=== PATIENT | male | born 1970 | race American Indian/Alaskan Native ===

== ENCOUNTER 2016-08-16 02:36 | Observation (INO) | payer MEDICAID ==
[2016-08-16 02:36] VITALS: BMI 23.6
--- NOTE | 2016-08-16 05:10 | ED PDOC ---
Arrival/HPI - General Historian: Patient - History of Present Illness Time/Duration: 4-6 hours Symptom Onset: Sudden Symptom Course: Intermittent Quality: Stabbing Severity Level: 9 Activities at Onset: Rest <Adela Kinney - Last Filed: 08/16/16 19:15> <Raciel Jarquin - Last Filed: 08/18/16 23:22> - General Chief Complaint: Abdominal Pain Time Seen by Provider: 08/16/16 03:04 - History of Present Illness Narrative History of Present Illness (Text): 08/16/16 05:10 46 yo M with extensive h/o alcoholism and chronic pancreatitis presents to ER with c/o epigastric abdominal pain and emesis since last evening. Patient states he was resting watching TV when he suddenly developed epigastric abdominal pain radiating to his back. He then developed non-bloody, non-bilious emesis with food ingestion. Patient denies diarrhea, fevers, chills, pleurisy. He was recently admitted at [facility] with diagnosis of RLE DVT, however patient signed out AMA prior to investigatory studies for PE. He states he was subsequently admitted at [facility] where he had a antonino filter placed and was discharged with an anticoagulant of which he does not know the name ("brown pill "). (Adela Kinney) Past Medical History - Provider Review Nursing Documentation Reviewed: Yes - Travel History Have you recently traveled outside [place] w/in the past 3 mons?: No - Infectious Disease Hx of Infectious Diseases: None - Tetanus Immunization Tetanus Immunization: Up to Date - Reproductive Currently : No - Cardiac Hx Cardiac Disorders: Yes Hx Hypertension: Yes - Pulmonary Hx Respiratory Disorders: Yes - Neurological Hx Neurological Disorder: Yes (neuropathy, numbness to toes) - HEENT Hx HEENT Disorder: No - Renal Hx Renal Disorder: No - Endocrine/Metabolic Hx Diabetes Mellitus Type 2: Yes - Hematological/Oncological Hx Blood Disorders: Yes Hx Anemia: Yes - Integumentary Hx Dermatological Disorder: Yes - Musculoskeletal/Rheumatological Hx Falls: Yes - Gastrointestinal Hx Gastrointestinal Disorders: Yes Hx Gastroesophageal Reflux: Yes Hx Pancreatitis: Yes (chronic) - Genitourinary/Gynecological Hx Genitourinary Disorders: No - Psychiatric Hx Substance Use: Yes - Past Surgical History Past Surgical History: Non-Contributing - Surgical History Other/Comment: UMBILICAL hernia 9 yrs old - Anesthesia Hx Anesthesia: Yes Hx Anesthesia Reactions: No Hx Malignant Hyperthermia: No - Suicidal Assessment Feels Threatened In Home Enviroment: No <Adela Kinney - Last Filed: 08/16/16 19:15> Family/Social History - Physician Review Nursing Documentation Reviewed: Yes Family/Social History: Diabetes, Hypertension Smoking Status: Current Some Days Smoker Hx Alcohol Use: Yes (quit 2009) Hx Substance Use: Yes Substance used: heroine Hx Substance Use Treatment: No <Jose AmitziAdela churchill - Last Filed: 08/16/16 19:15> Allergies/Home Meds <NirmalAdela - Last Filed: 08/16/16 19:15> <Raciel Jarquin - Last Filed: 08/18/16 23:22> Allergies/Adverse Reactions: Allergies contrast dye Allergy (Mild, Uncoded 08/16/16 05:01) URTICARIA hives Home Medications: Home Meds Medication Instructions Recorded Confirmed Enalapril Maleate [Vasotec] 10 mg PO DAILY 05/06/16 08/16/16 Fluticasone/Salmeterol 250/50 1 puff IH BID 05/06/16 08/16/16 [Advair Diskus 250/50] Gabapentin [Neurontin] 300 mg PO TID 05/06/16 08/16/16 Simvastatin [Zocor] 20 mg PO DAILY 05/06/16 08/16/16 Review of Systems - Physician Review All systems were reviewed & negative as marked: Yes - Review of Systems Constitutional: Normal. absent: Fatigue, Fevers, Night Sweats Eyes: Normal. absent: Vision Changes, Photophobia ENT: Normal Respiratory: Normal. absent: SOB, Cough, Sputum Cardiovascular: Normal Gastrointestinal: Abdominal Pain (epigastric raditianig to back), Nausea, Vomiting. absent: Diarrhea, Hematochezia, Hematemesis Genitourinary Male: Normal. absent: Dysuria, Frequency Musculoskeletal: Back Pain. absent: Neck Pain Neurological: absent: Headache, Dizziness Endocrine: absent: Diaphoresis, Polyuria, Polydipsia <Adela Kinney - Last Filed: 08/16/16 19:15> Physical Exam Vital Signs Reviewed: Yes Temperature: Afebrile Blood Pressure: Normal Pulse: Regular Respiratory Rate: Normal Appearance: Positive for: Well-Appearing, Non-Toxic, Comfortable Pain Distress: None Mental Status: Positive for: Alert and Oriented X 3 - Systems Exam Head: Present: Atraumatic, Normocephalic Pupils: Present: PERRL Extroacular Muscles: Present: EOMI Conjunctiva: Present: Normal. No: Injected, Icteric Neck: Present: Normal Range of Motion. No: Meningeal Signs, JVD Respiratory/Chest: Present: Good Air Exchange, Wheezes (very mild, end-exp diffuse). No: Respiratory Distress, Accessory Muscle Use Cardiovascular: Present: Regular Rate and Rhythm, Normal S1, S2 Abdomen: Present: Tenderness (mild epigastric), Normal Bowel Sounds, Guarding ( voluntary). No: Distention, Peritoneal Signs Upper Extremity: Present: Normal Inspection. No: Cyanosis, Edema Lower Extremity: Present: Edema (R>L, 4+ pitting edema RLE, 2+ pitting edema LLE ), Reginald's Sign (RLE). No: Normal Inspection, CALF TENDERNESS (RLE) Neurological: Present: GCS=15, CN II-XII Intact, Speech Normal Psychiatric: Present: Alert, Oriented x 3 <Adela Kinney - Last Filed: 08/16/16 19:15> Vital Signs Temp Pulse Resp BP Pulse Ox 08/16/16 10:26 59 L 18 138/79 100 08/16/16 08:54 66 18 141/84 100 08/16/16 07:36 64 124/93 H 100 08/16/16 07:34 65 18 124/93 H 100 08/16/16 07:33 64 16 124/93 H 100 08/16/16 07:00 64 18 115/69 100 08/16/16 05:14 98.1 F 66 18 117/76 100 Medical Decision Making Re-evaluation Time: 06:03 - EKG Interpretation Interpreted by ED Physician: Yes Type: 12 lead EKG Comparison: Similar to previous EKG <Adela Kinney - Last Filed: 08/16/16 19:15> <Raciel Jarquin - Last Filed: 08/18/16 23:22> ED Course and Treatment: 08/16/16 05:34 46 yo M w h/o alcoholism, chronic EtOH-induced pancreatitis, recent RLE DVT s/p antonino filter presents with epigastric abdominal pain, nausea and vomiting. Labs, Zofran, banana bag. Duonebs for mild end-exp wheezing. 08/16/16 06:02 RN unable to obtain IV access. L EJ placed, lab work sent. 08/16/16 06:54 Patient re-evaluated. Initially sleeping but easily arousable. Requests narcotic pain medications. Explained full workup is still pending, no narcotic pain meds will be ordered. 08/16/16 06:59 Patient observed sleeping. (Adela Kinney) 08/16/16 07:00 Patient seen and evaluated with resident. Agree with HPI, clinical findings, plan and treatment. case d/w dr acosta will obs fo intractable vomiting 08/18/16 23:22 (Raciel Jarquin) - Lab Interpretations Lab Results: 08/16/16 05:30 08/16/16 05:30 Lab Results 08/16/16 05:30: WBC 5.0 D, RBC 3.42 L, Hgb 9.0 L, Hct 28.7 L, MCV 83.9, MCH 26.3, MCHC 31.4, RDW 15.2 H, Plt Count 269, MPV 10.8, Gran % 32.6 L, Lymph % ( Auto) 52.2 H, [place] % (Auto) 7.7 H, Eos % (Auto) 6.3 H, Baso % (Auto) 1.2, Gran # 1.62, Lymph # 2.6, [place] # 0.4, Eos # 0.3, Baso # 0.06, PT 11.4, INR 1.06, APTT 30.6, Sodium 138, Potassium 4.2, Chloride 103, Carbon Dioxide 28, Anion Gap 11, BUN 12, Creatinine 0.7, Est GFR ( Amer) > 60, Est GFR (Non-Af Amer) > 60, Random Glucose 376 H* D, Calcium 9.0, Total Bilirubin 0.7, AST 36, ALT 51, Alkaline Phosphatase 91, Total Protein 7.2, Albumin 3.5, Globulin 3.7, Albumin/Globulin Ratio 1.0 L, Lipase 22 L - EKG Interpretation EKG Interpretation (Text): 08/16/16 06:12 NSR, rate 63 bpm, no acute ischemia (Adela Kinney) - Medication Orders Current Medication Orders: Discontinued Medications Albuterol/Ipratropium (Duoneb 3 Mg/0.5 Mg (3 Ml) Ud) 3 ml IH STAT STA Stop: 08/16/16 05:28 Last Admin: 08/16/16 05:37 Dose: 3 ML Docusate Sodium (Colace) 100 mg PO HS CRUZ Last Admin: 08/17/16 23:15 Dose: 100 MG Heparin Sodium (Porcine) (Heparin) 5,000 units SC Q12 CRUZ PRN Reason: Protocol Last Admin: 08/16/16 22:00 Dose: Not Given Non-Admin Reason: Patient Refused Heparin Sodium (Porcine) (Heparin) 5,000 units SC Q8 CRUZ PRN Reason: Protocol Last Admin: 08/18/16 06:09 Dose: 5,000 UNITS Subcutaneous Administrations Document 08/18/16 06:09 KTB (Rec: 08/18/16 06:11 KTB [id number]) Injection Site MAR Injection Site Right Arm Charges for Administration # of Subcutaneous Administrations 1 Hydromorphone HCl (Dilaudid) 0.5 mg IVP Q4H PRN PRN Reason: Pain, severe (8-10) Last Admin: 08/18/16 08:06 Dose: 0.5 MG MAR Pain Assessment Document 08/18/16 08:06 BIR (Rec: 08/18/16 08:06 BIR [id number]) Pain Reassessment Is this a pain reassessment? No Sleep Is patient sleeping during reassessment? No Presence of Pain Presence of Pain Yes IVP Administration Document 08/18/16 08:06 BIR (Rec: 08/18/16 08:06 BIR [id number]) Charges for Administration # of IVP Administrations 1 Hydromorphone HCl (Dilaudid) 1 mg IVP ONCE ONE Stop: 08/17/16 10:57 Last Admin: 08/17/16 11:11 Dose: 1 MG MAR Pain Assessment Document 08/17/16 11:11 RV (Rec: 08/17/16 11:12 RV [id number]) Pain Reassessment Is this a pain reassessment? No Sleep Is patient sleeping during reassessment? No Presence of Pain Presence of Pain Yes Pain Scale Used Pain Scale Used Numeric Location Left, Right or Bilateral Bilateral Pain Location Body Site Abdomen Description Description Constant Intensity of Pain at present 10 Pain Behavior Moaning Irritability Restlessness Perspiration Facial Grimacing Thrashing Aggravating Factors ADL's Alleviating Factors/Management Medication Techniques Alleviating Factors Medication IVP Administration Document 08/17/16 11:11 RV (Rec: 08/17/16 11:12 RV [id number]) Charges for Administration # of IVP Administrations 2 Re-Assess: [facility] Pain Assessment Document 08/17/16 12:11 RV (Rec: 08/17/16 15:58 RV [id number]) Pain Reassessment Is this a pain reassessment? Yes Sleep Is patient sleeping during reassessment? Yes Hydromorphone HCl (Dilaudid) 0.5 mg IVP ONCE ONE Stop: 08/18/16 00:43 Last Admin: 08/18/16 00:53 Dose: 0.[address] [facility] Pain Assessment Document 08/18/16 00:53 KTB (Rec: 08/18/16 00:54 KTB [id number]) Pain Reassessment Is this a pain reassessment? No Presence of Pain Presence of Pain Yes Pain Scale Used Pain Scale Used Numeric Location Pain Location Body Site Abdomen Back Description Intensity of Pain at present 6 IVP Administration Document 08/18/16 00:53 KTB (Rec: 08/18/16 00:54 KTB [id number]) Charges for Administration # of IVP Administrations 1 Re-Assess: [facility] Pain Assessment Document 08/18/16 01:53 KTB (Rec: 08/18/16 02:05 KTB [email or web address]) Pain Reassessment Is this a pain reassessment? Yes Sleep Is patient sleeping during reassessment? Yes Multivitamins/Vitamin C 10 ml/Thiamine HCl 100 mg/ Folic Acid 1 mg/ Dextrose 1, 011.2 mls @ 1,000 mls/hr IV .Q1H1M ONE Stop: 08/16/16 06:06 Last Admin: 08/16/16 07:20 Dose: 1,000 MLS/HR eMAR Start Stop Document 08/16/16 07:20 NATALIA (Rec: 08/16/16 07:21 NATALIA [id number]) Intravenous Solution Start Date 08/16/16 Start Time 06:05 End Date 08/16/16 End time 07:10 Total Infusion Time 65 Sodium Chloride (Sodium Chloride 0.9%) 1,000 mls @ 150 mls/hr IV .Q6H40M [facility] Last Admin: 08/18/16 00:54 Dose: 150 MLS/HR eMAR Start Stop Document 08/18/16 00:54 KTB (Rec: 08/18/16 00:55 KTB [id number]) Intravenous Solution Start Date 08/18/16 Start Time 00:55 Insulin Detemir (Levemir) 15 unit SC HS [facility] Last Admin: 08/17/16 23:17 Dose: 15 UNIT Subcutaneous Administrations Document 08/17/16 23:17 KTB (Rec: 08/17/16 23:17 KTB [id number]) Injection Site MAR Injection Site Right Arm Charges for Administration # of Subcutaneous Administrations 1 Insulin Human Lispro (Humalog Med) 0 units SC ACHS CRUZ PRN Reason: Protocol Last Admin: 08/18/16 11:20 Dose: Not Given Non-Admin Reason: Patient Refused MAR Blood Glucose Document 08/18/16 11:20 BIR (Rec: 08/18/16 11:20 BIR [id number]) Blood Glucose Finger Stick Blood Glucose (70-120) 170 Ketorolac Tromethamine (Toradol) 15 mg IVP Q6 PRN PRN Reason: Pain, moderate (4-7) Last Admin: 08/18/16 06:31 Dose: 15 MG MAR Pain Assessment Document 08/18/16 06:31 KTB (Rec: 08/18/16 06:32 KTB [email or web address]) Pain Reassessment Is this a pain reassessment? No Presence of Pain Presence of Pain Yes Pain Scale Used Pain Scale Used Numeric Location Pain Location Body Site Abdomen Back Description Intensity of Pain at present 6 IVP Administration Document 08/18/16 06:31 KTB (Rec: 08/18/16 06:32 KTB [email or web address]) Charges for Administration # of IVP Administrations 1 Lorazepam (Ativan) 2 mg IVP ONCE ONE PRN Reason: Protocol Stop: 08/16/16 19:42 Last Admin: 08/16/16 19:56 Dose: 2 MG Behavioural Document 08/16/16 19:56 FC (Rec: 08/16/16 19:56 FC [id number]) Maintenance Maintenance Dose No Nonmedicinal Nonmedicinal Interventions Redirect Therapeutic Communication Behavior Behavior for Medication: Anxiety Continuous pacing/restlessness IVP Administration Document 08/16/16 19:56 FC (Rec: 08/16/16 19:56 FC [id number]) Charges for Administration # of IVP Administrations 1 Re-Assess: Reassess Psych Meds Document 08/16/16 20:26 FC (Rec: 08/16/16 20:49 FC [id number]) Reassess Psych Med Effective Morphine Sulfate (Morphine) 1 mg IVP Q4H PRN PRN Reason: Pain, severe (8-10) Last Admin: 08/17/16 09:59 Dose: 1 MG MAR Pain Assessment Document 08/17/16 09:59 RV (Rec: 08/17/16 10:00 RV [id number]) Pain Reassessment Is this a pain reassessment? No Sleep Is patient sleeping during reassessment? No Presence of Pain Presence of Pain Yes Pain Scale Used Pain Scale Used Numeric Location Left, Right or Bilateral Bilateral Pain Location Body Site Abdomen Description Description Constant Intensity of Pain at present 10 Pain Behavior Moaning Crying Irritability Aggravating Factors ADL's Changing Position Exercise/Activity Alleviating Factors/Management Medication Techniques Alleviating Factors Medication IVP Administration Document 08/17/16 09:59 RV (Rec: 08/17/16 10:00 RV [id number]) Charges for Administration # of IVP Administrations 1 Re-Assess: [facility] Pain Assessment Document 08/17/16 10:59 RV (Rec: 08/17/16 15:58 RV [id number]) Pain Reassessment Is this a pain reassessment? Yes Sleep Is patient sleeping during reassessment? No Presence of Pain Presence of Pain Yes Pain Scale Used Pain Scale Used Numeric Location Left, Right or Bilateral Bilateral Pain Location Body Site Abdomen Description Description Constant Intensity of Pain at present 10 Pain Behavior Moaning Irritability Restlessness Perspiration Aggravating Factors ADL's Changing Position Exercise/Activity Alleviating Factors/Management Medication Techniques Pain not relieved and LIP/MD was Yes notified Morphine Sulfate (Morphine) 1 mg IVP ONCE ONE Stop: 08/16/16 15:30 Last Admin: 08/16/16 15:36 Dose: [address] [facility] Pain Assessment Document 08/16/16 15:36 (Rec: 08/16/16 15:36 [id number]) Pain Reassessment Is this a pain reassessment? No Presence of Pain Presence of Pain Yes IVP Administration Document 08/16/16 15:36 (Rec: 08/16/16 15:36 [id number]) Charges for Administration # of IVP Administrations 1 Re-Assess: MAR Pain Assessment Document 08/16/16 16:36 (Rec: 08/16/16 18:20 [email or web address]) Pain Reassessment Is this a pain reassessment? Yes Sleep Is patient sleeping during reassessment? Yes Ondansetron HCl (Zofran Odt) 4 mg PO STAT STA Stop: 08/16/16 05:07 Last Admin: 08/16/16 05:30 Dose: 4 MG Ondansetron HCl (Zofran Inj) 4 mg IVP Q6H PRN PRN Reason: Nausea/Vomiting Last Admin: 08/17/16 08:17 Dose: 4 MG IVP Administration Document 08/17/16 08:17 RV (Rec: 08/17/16 08:17 RV [id number]) Charges for Administration # of IVP Administrations 1 Pantoprazole Sodium (Protonix Inj) 40 mg IVP DAILY [facility] Last Admin: 08/18/16 09:02 Dose: 40 MG IVP Administration Document 08/18/16 09:02 BIR (Rec: 08/18/16 09:02 BIR [id number]) Charges for Administration # of IVP Administrations 1 Pneumococcal Polyvalent Vaccine (Pneumovax 23 Vaccine) 0.5 ml IM .ONCE ONE Stop: 08/16/16 13:50 Polyethylene Glycol (Miralax) 17 gm PO BID [facility] Last Admin: 08/18/16 09:02 Dose: 17 GM Potassium Chloride (K-Dur 20 Meq Er Tab) 20 meq PO ONCE ONE Stop: 08/17/16 10:58 Last Admin: 08/17/16 13:33 Dose: 20 MEQ Comments: patient now agreeing to take Potassium Chloride (Potassium Chloride Oral Soln) 40 meq PO ONCE ONE Stop: 08/18/16 08:35 Last Admin: 08/18/16 09:01 Dose: 40 MEQ Potassium Chloride (K-Dur 20 Meq Er Tab) 40 meq PO ONCE ONE Stop: 08/18/16 08:46 Last Admin: 08/18/16 11:20 Dose: - PA / BIT TAPPER / Resident Statement / has reviewed & agrees with the documentation as recorded. / has examined the patient and agrees with the treatment plan. <Raciel Jarquin - Last Filed: 08/18/16 23:22> Disposition/Present on Arrival - Present on Arrival Any Indicators Present on Arrival: Yes History of DVT/PE: No History of Uncontrolled Diabetes: Yes Urinary Catheter: No History Surgical Site Infection Following: None - Disposition Have Diagnosis and Disposition been Completed?: Yes Disposition Time: 19:00 Patient Plan: Admission <Adela Kinney - Last Filed: 08/16/16 19:15> - Present on Arrival Any Indicators Present on Arrival: No - Disposition Have Diagnosis and Disposition been Completed?: Yes Disposition Time: 07:30 <Raciel Jarquin - Last Filed: 08/18/16 23:22> - Disposition Diagnosis: Intractable vomiting, Hyperglycemia due to type 2 diabetes mellitus Disposition: HOSPITALIZED Patient Problems: Current Active Problems Problem Status Diagnosed Acute gastritis Acute Cellulitis Acute Intractable pain Acute Chronic pancreatitis Chronic Diabetes mellitus type 2 Chronic Condition: SERIOUS
[2016-08-16 05:20] VITALS: O2SAT 100
[2016-08-16] MEDS ORDERED: Albuterol-Ipratrop 3 mg / 0.5 (3 ml) UD IH STA (05:27)
[2016-08-16] MEDS: Multivitamin (MVI) 10 ML, Thiamine 100 MG, Folic Acid 1 MG in Dextrose 5% In Water 1,00... IV ONE ×2 (06:02→07:20)
[2016-08-16 06:24] LABS: BASO # 0.06 K/mm3 (0.0-2.0); BASO % 1.2 % (0.0-3.0); EOS # 0.3 (0.0-0.7); EOS % 6.3 % (1.5-5.0); GRAN # 1.62 (1.4-6.5); GRAN % 32.6 % (50.0-68.0); HEMATOCRIT 28.7 % (42.0-52.0); LYMPH # 2.6 (1.2-3.4); LYMPH % 52.2 % (22.0-35.0); MEAN CELL VOLUME 83.9 fL (80.0-105.0); MEAN CORPUSCULAR HEMOGLOBIN 26.3 pg (25.0-35.0); MEAN CORPUSCULAR HGB CONC 31.4 g/dl (31.0-37.0); MEAN PLATELET VOLUME 10.8 fl (7.0-11.0); MONO # 0.4 (0.1-0.6); MONO % 7.7 % (1.0-6.0); PLATELET COUNT 269 10^3/uL (120.0-450.0); RED CELL DISTRIBUTION WIDTH 15.2 % (11.5-14.5)
[2016-08-16 06:27] LABS: INR 1.06 (0.93-1.08); PARTIAL THROMBOPLASTIN TIME 30.6 Seconds (23.7-30.8)
[2016-08-16 07:00] LABS: ADD MANUAL DIFF? NO
[2016-08-16 07:07] LABS: ALKALINE PHOSPHATASE 91 U/L (38-133); ALT/SGPT 51 U/L (7-56); AST/SGOT 36 U/L (15-59); BILIRUBIN,TOTAL 0.7 mg/dL (0.2-1.3); BLOOD UREA NITROGEN 12 mg/dL (7-21); CARBON DIOXIDE 28 mmol/L (21-33); CHLORIDE 103 mmol/L (95-110); GFR AFRICAN-AMERICAN > 60; LIPASE 22 U/L (23-300); POTASSIUM 4.2 mmol/L (3.6-5.0); SODIUM 138 mmol/L (132-148); TOTAL PROTEIN 7.2 g/dL (5.8-8.3)
[2016-08-16 07:09] LABS: GLUCOSE,RANDOM 376 mg/dL (70-110)
[2016-08-16] MEDS: Sodium Chloride 0.9% 1,000 ML IV SCH ×3 (08:21→22:20)
--- NOTE | 2016-08-16 11:18 | CP.PCM.HP ---
<Christal Perez - Last Filed: 08/16/16 16:42> History of Present Illness - History of Present Illness History of Present Illness: 46 yo M w/ PMHx DM, Pancreatitis, ETOH abuse, IV drug abuse, presents with two episodes of vomiting w/o blood over past two days, and two days of epigastric pain with radiation to the back. Pt has previous admission at same hospital in 06/2016 while being treated for DKA, and RLE DVT, and pt left AMA prior to PE work up. As per pt, subsequently [place] [facility] [place] had a antonino filter placed and was discharged with an anticoagulant of which he does not know the name. PMH: as above PSH:umbilical hernia repair, I&D left arm abscess 05/23/16 Social hx: IVDA, hx alcohol use, former tobacco user Present on Admission - Present on Admission Any Indicators Present on Admission: Yes History of Uncontrolled Diabetes: Yes Review of Systems - Review of Systems All systems: reviewed and no additional remarkable complaints except - Constitutional Constitutional: absent: Chills, Fever - Cardiovascular Cardiovascular: absent: Chest Pain, Dyspnea - Respiratory Respiratory: absent: Dyspnea - Gastrointestinal Gastrointestinal: Abdominal Pain. absent: Diarrhea - Genitourinary Genitourinary: absent: Hematuria, Pyuria Past Patient History - Infectious Disease Hx of Infectious Diseases: None - Tetanus Immunizations Tetanus Immunization: Up to Date - Past Medical History & Family History Past Medical History?: Yes - Past Social History Smoking Status: Current Some Days Smoker - CARDIAC Hx Cardiac Disorders: Yes Hx Hypertension: Yes - PULMONARY Hx Respiratory Disorders: Yes - NEUROLOGICAL Hx Neurological Disorder: Yes (neuropathy, numbness to toes) - HEENT Hx HEENT Problems: No - RENAL Hx Chronic Kidney Disease: No - ENDOCRINE/METABOLIC Hx Diabetes Mellitus Type 2: Yes - HEMATOLOGICAL/ONCOLOGICAL Hx Blood Disorders: Yes Hx Anemia: Yes - INTEGUMENTARY Hx Dermatological Problems: Yes - MUSCULOSKELETAL/RHEUMATOLOGICAL Hx Falls: Yes - GASTROINTESTINAL Hx Gastrointestinal Disorders: Yes Hx Gastroesophageal Reflux: Yes Hx Pancreatitis: Yes (chronic) - GENITOURINARY/GYNECOLOGICAL Hx Genitourinary Disorders: No - PSYCHIATRIC Hx Substance Use: Yes - SURGICAL HISTORY Other/Comment: UMBILICAL hernia 9 yrs old - ANESTHESIA Hx Anesthesia: Yes Hx Anesthesia Reactions: No Hx Malignant Hyperthermia: No Meds Allergies/Adverse Reactions: Allergies Allergy/AdvReac Type Severity Reaction Status Date / Time contrast dye Allergy Mild URTICARIA Uncoded 08/16/16 05:01 Physical Exam - Constitutional Appears: Non-toxic, No Acute Distress - Head Exam Head Exam: ATRAUMATIC, NORMOCEPHALIC - Eye Exam Eye Exam: EOMI, Normal appearance - ENT Exam ENT Exam: Mucous Membranes Moist, Normal Exam - Respiratory Exam Respiratory Exam: Clear to Auscultation Bilateral, NORMAL BREATHING PATTERN - Cardiovascular Exam Cardiovascular Exam: +S1, +S2. absent: Tachycardia - GI/Abdominal Exam GI & Abdominal Exam: Soft, Tenderness (slight in epigastric area) - Extremities Exam Extremities exam: Positive for: pedal edema (+1 b/l). Negative for: tenderness - Neurological Exam Neurological exam: Alert, Oriented x3 - Skin Skin Exam: Intact, Normal Color Results - Vital Signs Recent Vital Signs: Last Vital Signs Temp 98.1 F 08/16/16 05:14 Pulse 59 L 08/16/16 10:26 Resp 18 08/16/16 10:26 BP 138/79 08/16/16 10:26 Pulse Ox 100 08/16/16 10:26 - Labs Result Diagrams: 08/16/16 05:30 08/16/16 05:30 Assessment & Plan - Assessment and Plan (Free Text) Plan: 46 yo M w/ PMHx of DM, Pancreatitis, ETOH abuse, IV drug abuse, presents with two episodes of vomiting w/o blood over past two days, and two days of epigastric pain with radiation to the back. epigastric abdominal pain with vomiting: liq diet IVF 150 toradol 15mg ivp q6prn, moderate pain morphine 1mg ivp q4h prn, severe pain zofran prn DM: Levemir 15 u sc hs MEd Lispro ISS ACHS PPx measures: heparin 5000 u sc q12 protonix <Newton CLARK,Elliot - Last Filed: 08/17/16 08:13> Results - Vital Signs Recent Vital Signs: Last Vital Signs Temp 98.5 F 08/17/16 02:55 Pulse 44 L 08/17/16 06:00 Resp 20 08/17/16 02:55 BP 133/84 08/17/16 02:55 Pulse Ox 100 08/17/16 02:55 - Labs Result Diagrams: 08/16/16 05:30 08/16/16 05:30 Attending/Attestation - Attestation I have personally seen and examined this patient.: Yes I have fully participated in the care of the patient.: Yes I have reviewed all pertinent clinical information: Yes Notes (Text): Patient was seen and examined with manager medical device .Agreed with resident assessment and plan. 46 yrs old male with PMH of chronic Pancreatitis, DM,HTN, chronic pain syndrome , opiod abuse and non compliance with medication.He has history of admission to multiple hospital for pain related issue.Last time in June he was diagnosed with multiple abscess, MSSA Bactremia, right leg Popliteal and tibial DVT ,he left the hospital ,then was admitted in [place] [facility] [place] for 2 weeks as per patient, IVC filter was placed in for DVT due to history of non compliance joseluis dmitted with abdminal pain getting worse, abdominal examination is unremarkable except for mild epigastric tenderness.Patient looks comfortable , will admit in hospital for obervation, will start on liquid diet, will avoid high dose of Narcotic due to history of opiod abuse, will monitor for pain closely and adjust medications as needed. Management plan was discussed in detail with patient Education was provided.
[2016-08-16] MEDS: Morphine 2 mg/ml ISec IVP PRN ×3 (11:48→18:52)
[2016-08-16] MEDS: Insulin Lispro (humaLOG) MEDIUM Coverage SC SCH ×4 (11:48→22:28)
--- NOTE | 2016-08-16 12:02 | CARD ---
APPROVED REPORT EKG Measurement Heart [id number] <Conclusion> Normal sinus rhythm Normal ECG
[2016-08-16] MEDS ORDERED: Pneumococcal 23-Valent Vaccine IM ONE (13:49)
[2016-08-16] MEDS ORDERED: Morphine 2 mg/ml ISec IVP ONE (15:29)
[2016-08-16] MEDS: Insulin Detemir 100 units/ml Vial (Levemir) SC SCH ×2 (22:01→22:30)
[2016-08-17] MEDS: Morphine 2 mg/ml ISec IVP PRN ×3 (01:03→09:59)
[2016-08-17] MEDS: Sodium Chloride 0.9% 1,000 ML IV SCH ×3 (04:21→17:55)
[2016-08-17] MEDS: Insulin Lispro (humaLOG) MEDIUM Coverage SC SCH ×4 (08:17→23:16)
[2016-08-17 09:20] LABS: ADD MANUAL DIFF? NO
[2016-08-17 09:30] LABS: BASO # 0.03 K/mm3 (0.0-2.0); BASO % 0.4 % (0.0-3.0); EOS # 0.2 (0.0-0.7); EOS % 2.2 % (1.5-5.0); GRAN # 3.25 (1.4-6.5); GRAN % 47.1 % (50.0-68.0); HEMATOCRIT 30.8 % (42.0-52.0); LYMPH % 43.8 % (22.0-35.0); MEAN CELL VOLUME 81.3 fL (80.0-105.0); MEAN CORPUSCULAR HEMOGLOBIN 26.6 pg (25.0-35.0); MEAN CORPUSCULAR HGB CONC 32.8 g/dl (31.0-37.0); MEAN PLATELET VOLUME 10.8 fl (7.0-11.0); MONO # 0.5 (0.1-0.6); MONO % 6.5 % (1.0-6.0); PLATELET COUNT 268 10^3/uL (120.0-450.0); RED CELL DISTRIBUTION WIDTH 14.4 % (11.5-14.5); WHITE BLOOD COUNT 6.9 10^3/ul (4.5-11.0)
[2016-08-17 09:32] LABS: ALB/GLOB RATIO 0.9 (1.1-1.8); ALKALINE PHOSPHATASE 71 U/L (38-133); ALT/SGPT 44 U/L (7-56); AST/SGOT 26 U/L (15-59); BLOOD UREA NITROGEN 8 mg/dL (7-21); CALCIUM 8.7 mg/dL (8.4-10.5); CARBON DIOXIDE 24 mmol/L (21-33); CHLORIDE 105 mmol/L (95-110); GFR AFRICAN-AMERICAN > 60; GLUCOSE,RANDOM 155 mg/dL (70-110); SODIUM 137 mmol/L (132-148)
[2016-08-17 09:36] LABS: POTASSIUM 3.4 mmol/L (3.6-5.0)
[2016-08-17] MEDS ORDERED: HYDROmorphone 0.5 mg/0.5 ml ISec IVP ONE (10:56)
[2016-08-17] MEDS: Potassium Chloride 20 mEq ER Tab PO ONE ×3 (11:12→13:33)
--- NOTE | 2016-08-17 15:19 | CT ---
PROCEDURE: CT Abdomen and Pelvis without intravenous contrast HISTORY: abdominal pain COMPARISON: None. TECHNIQUE: Without contrast.. Contrast Dose: Noncontrast Radiation dose: Total exam DLP = 371 mGy-cm. This CT exam was performed using one or more of the following dose reduction techniques: Automated exposure control, adjustment of the mA and/or kV according to patient size, and/or use of iterative reconstruction technique. FINDINGS: LOWER THORAX: Unremarkable. LIVER: Unremarkable. No gross lesion or ductal dilatation. GALLBLADDER AND BILE DUCTS: Unremarkable. PANCREAS: Extensive chronic calcifications are seen in the pancreas. There is dilatation of the pancreatic duct consistent with atrophy. SPLEEN: Unremarkable. ADRENALS: Unremarkable. No mass. KIDNEYS AND URETERS: Unremarkable. No hydronephrosis. No solid mass. VASCULATURE: Unremarkable. No aortic aneurysm. Caval filter BOWEL: Unremarkable. No obstruction. No gross mural thickening. Severe constipation APPENDIX: Unremarkable. Normal appendix. PERITONEUM: Unremarkable. No free fluid. No free air. LYMPH NODES: Unremarkable. No enlarged lymph nodes. BLADDER: Unremarkable. REPRODUCTIVE: Unremarkable. BONES: No acute fracture. OTHER FINDINGS: None. IMPRESSION: Severe constipation. Chronic pancreatitis
--- NOTE | 2016-08-17 15:24 | CP.PCM.PN ---
<ChrisChristal - Last Filed: 08/18/16 06:39> Subjective - Date & Time of Evaluation Date of Evaluation: 08/17/16 Time of Evaluation: 07:25 - Subjective Subjective: Pt seen and evaluated at bedside. Reports 3 non-bloody vomitus overnight. Nursing reports having seen pt placing straw down his throat, presumedly to induce vomit. Afebrile. Reporting unchanged abdominal pain. Objective - Vital Signs/Intake and Output Vital Signs (last 24 hours): Temp Pulse Resp BP Pulse Ox 98.8 F 46 L 20 112/75 100 08/17/16 06:00 08/17/16 06:00 08/17/16 06:00 08/17/16 06:00 08/17/16 06:00 Intake and Output: 08/17/16 08/17/16 06:59 18:59 Intake Total 2940 540 Output Total 100 Balance 2840 540 - Medications Medications: Current Medications Heparin Sodium (Porcine) (Heparin) 5,000 units SC Q8 CRUZ PRN Reason: Protocol Last Admin: 08/17/16 13:33 Dose: 5,000 units Hydromorphone HCl (Dilaudid) 0.5 mg IVP Q4H PRN PRN Reason: Pain, severe (8-10) Sodium Chloride (Sodium Chloride 0.9%) 1,000 mls @ 150 mls/hr IV .Q6H40M [facility] Last Admin: 08/17/16 10:00 Dose: 150 mls/hr Insulin Detemir (Levemir) 15 unit SC HS [facility] Last Admin: 08/16/16 22:30 Dose: 15 unit Insulin Human Lispro (Humalog Med) 0 units SC ACHS [facility] PRN Reason: Protocol Last Admin: 08/17/16 11:37 Dose: Not Given Ketorolac Tromethamine (Toradol) 15 mg IVP Q6 PRN PRN Reason: Pain, moderate (4-7) Last Admin: 08/17/16 13:35 Dose: 15 mg Ondansetron HCl (Zofran Inj) 4 mg IVP Q6H PRN PRN Reason: Nausea/Vomiting Last Admin: 08/17/16 08:17 Dose: 4 mg Pantoprazole Sodium (Protonix Inj) 40 mg IVP DAILY [facility] Last Admin: 08/17/16 10:00 Dose: 40 mg - Labs Labs: 08/17/16 09:18 08/17/16 09:18 PT 11.4 Seconds (9.9-11.8) 08/16/16 05:30 INR 1.06 (0.93-1.08) 08/16/16 05:30 APTT 30.6 Seconds (23.7-30.8) 08/16/16 05:30 - Cardiovascular Exam Cardiovascular Exam: +S2 - Additional Findings Additional findings: - Constitutional Appears: Non-toxic, combative - Head Exam Head Exam: ATRAUMATIC, NORMOCEPHALIC - Eye Exam Eye Exam: EOMI, Normal appearance - ENT Exam ENT Exam: Mucous Membranes Moist, Normal Exam - Respiratory Exam Respiratory Exam: Clear to Auscultation Bilateral, NORMAL BREATHING PATTERN - Cardiovascular Exam Cardiovascular Exam: +S1, +S2. absent: Tachycardia - GI/Abdominal Exam GI & Abdominal Exam: Soft, Tenderness epigastric pain - Extremities Exam Extremities exam: Positive for: peripheral pulses appreciated. Negative for: tenderness - Neurological Exam Neurological exam: Alert, Oriented x3 - Skin Skin Exam: Intact, Normal Color Assessment and Plan - Assessment and Plan (Free Text) Plan: 46 yo M w/ PMHx of DM, Pancreatitis, ETOH abuse, IV drug abuse, presents with two episodes of vomiting w/o blood over past two days, and two days of epigastric pain with radiation to the back. chronic pancreatitis: CT abd shows chronic pancreatitis and constipation full liq diet IVF toradol 15mg ivp q6prn, moderate pain dilaudid 0.5 mg ivp prn, severe pain zofran prn DM: Levemir 15 u sc hs MEd Lispro ISS ACHS constipation: miralax, colace PPx measures: heparin 5000 u sc q12 protonix <Newton CLARK,Elliot - Last Filed: 08/20/16 10:19> Objective - Vital Signs/Intake and Output Vital Signs (last 24 hours): Temp Pulse Resp BP Pulse Ox 98.7 F 49 L 18 136/87 100 08/18/16 06:00 08/18/16 06:00 08/18/16 06:00 08/18/16 06:00 08/18/16 06:00 - Labs Labs: 08/18/16 07:00 08/18/16 07:00 PT 11.4 Seconds (9.9-11.8) 08/16/16 05:30 INR 1.06 (0.93-1.08) 08/16/16 05:30 APTT 30.6 Seconds (23.7-30.8) 08/16/16 05:30 Attending/Attestation - Attestation I have personally seen and examined this patient.: Yes I have fully participated in the care of the patient.: Yes I have reviewed all pertinent clinical information, including history, physical exam and plan: Yes Notes (Text): Patient was seen and examined with electromedical equipment technician .Agreed with resident assessment and plan. 46 yrs old male with PMH of chronic Pancreatitis, DM,HTN, chronic pain syndrome , opiod abuse and non compliance with medication.He has history of admission to multiple hospital for pain related issue.Last time in June he was diagnosed with multiple abscess, MSSA Bactremia, right leg Popliteal and tibial DVT ,he left the hospital ,then was admitted in the [facility] for 2 weeks as per patient, IVC filter was placed in for DVT due to history of noncompliance is admitted with abdminal pain getting worse, abdominal examination is unremarkable except for mild epigastric tenderness,CT scan of abdomen and Pelvis today showed chronic Pancreatitis and constipation, We will start patient on laxative, and advance diet. Management plan was discussed in detail with patient Education was provided.
[2016-08-17] MEDS: HYDROmorphone 0.5 mg/0.5 ml ISec IVP PRN ×3 (15:57→23:54)
--- NOTE | 2016-08-17 17:46 | CARD ---
APPROVED REPORT EKG Measurement Heart [id number] <Conclusion> Marked sinus bradycardia Septal infarct, age undetermined Abnormal ECG
[2016-08-17] MEDS: POLYETHYLENE GLYCOL 3350 17 GM/Dose PACKET PO SCH (17:56)
[2016-08-17] MEDS: Insulin Detemir 100 units/ml Vial (Levemir) SC SCH (23:17)
[2016-08-18] MEDS ORDERED: HYDROmorphone 0.5 mg/0.5 ml ISec IVP ONE (00:42)
[2016-08-18] MEDS: Sodium Chloride 0.9% 1,000 ML IV SCH (00:54)
[2016-08-18 02:36] VITALS: TEMP 98.7
[2016-08-18] MEDS: HYDROmorphone 0.5 mg/0.5 ml ISec IVP PRN ×2 (04:09→08:06)
[2016-08-18 07:49] LABS: ADD MANUAL DIFF? NO
[2016-08-18 07:52] LABS: BASO # 0.03 K/mm3 (0.0-2.0); BASO % 0.5 % (0.0-3.0); EOS # 0.3 (0.0-0.7); EOS % 4.2 % (1.5-5.0); GRAN # 2.57 (1.4-6.5); GRAN % 42.9 % (50.0-68.0); HEMATOCRIT 31.1 % (42.0-52.0); LYMPH # 2.7 (1.2-3.4); LYMPH % 45.7 % (22.0-35.0); MEAN CELL VOLUME 79.9 fL (80.0-105.0); MEAN CORPUSCULAR HGB CONC 32.5 g/dl (31.0-37.0); MEAN PLATELET VOLUME 10.3 fl (7.0-11.0); MONO # 0.4 (0.1-0.6); MONO % 6.7 % (1.0-6.0); PLATELET COUNT 278 10^3/uL (120.0-450.0); RED CELL DISTRIBUTION WIDTH 14.5 % (11.5-14.5)
[2016-08-18] MEDS: Insulin Lispro (humaLOG) MEDIUM Coverage SC SCH ×2 (08:07→11:20)
[2016-08-18 08:23] LABS: ALB/GLOB RATIO 0.8 (1.1-1.8); ALKALINE PHOSPHATASE 65 U/L (38-133); ALT/SGPT 46 U/L (7-56); AST/SGOT 31 U/L (15-59); BILIRUBIN,TOTAL 1.1 mg/dL (0.2-1.3); BLOOD UREA NITROGEN 7 mg/dL (7-21); CALCIUM 8.5 mg/dL (8.4-10.5); CARBON DIOXIDE 23 mmol/L (21-33); CHLORIDE 106 mmol/L (98-107); GFR AFRICAN-AMERICAN > 60; GLUCOSE,RANDOM 69 mg/dL (70-110); POTASSIUM 3.2 mmol/L (3.6-5.0); SODIUM 138 mmol/L (132-148); TOTAL PROTEIN 6.7 g/dL (5.8-8.3)
[2016-08-18] MEDS ORDERED: Potassium Chloride 40 mEq/30 ml LIQ UD PO ONE (08:34)
[2016-08-18] MEDS ORDERED: Potassium Chloride 20 mEq ER Tab PO ONE (08:45)
[2016-08-18] MEDS: POLYETHYLENE GLYCOL 3350 17 GM/Dose PACKET PO SCH (09:02)
[2016-08-18 09:51] VITALS: BP 136/87; PULSE 49; RESP 18
--- NOTE | 2016-08-18 12:53 | CP.PCM.DIS ---
<Christal Perez - Last Filed: 09/21/16 22:41> Provider - Provider Date of Admission: 08/16/16 07:29 Attending physician: Tripp Rivera MD Primary care physician: unknown Consults: none Time Spent in preparation of Discharge (in minutes): 35 Hospital Course - Lab Results Lab Results: Micro Results 08/16/16 10:30 Blood-Venous Blood Culture - Preliminary NO GROWTH AFTER 48 HOURS 08/16/16 09:50 Blood-Venous Blood Culture - Preliminary NO GROWTH AFTER 48 HOURS Most Recent Lab Values WBC 6.0 10^3/ul (4.5-11.0) 08/18/16 07:00 RBC 3.89 10^6/uL (3.5-6.1) 08/18/16 07:00 Hgb 10.1 gm/dL (14.0-18.0) L 08/18/16 07:00 Hct 31.1 % (42.0-52.0) L 08/18/16 07:00 MCV 79.9 fL (80.0-105.0) L 08/18/16 07:00 MCH 26.0 pg (25.0-35.0) 08/18/16 07:00 MCHC 32.5 g/dl (31.0-37.0) 08/18/16 07:00 RDW 14.5 % (11.5-14.5) 08/18/16 07:00 Plt Count 278 10^3/uL (120.0-450.0) 08/18/16 07:00 MPV 10.3 fl (7.0-11.0) 08/18/16 07:00 Gran % 42.9 % (50.0-68.0) L 08/18/16 07:00 Lymph % (Auto) 45.7 % (22.0-35.0) H 08/18/16 07:00 [place] % (Auto) 6.7 % (1.0-6.0) H 08/18/16 07:00 Eos % (Auto) 4.2 % (1.5-5.0) 08/18/16 07:00 Baso % (Auto) 0.5 % (0.0-3.0) 08/18/16 07:00 Gran # 2.57 (1.4-6.5) 08/18/16 07:00 Lymph # 2.7 (1.2-3.4) 08/18/16 07:00 [place] # 0.4 (0.1-0.6) 08/18/16 07:00 Eos # 0.3 (0.0-0.7) 08/18/16 07:00 Baso # 0.03 K/mm3 (0.0-2.0) 08/18/16 07:00 PT 11.4 Seconds (9.9-11.8) 08/16/16 05:30 INR 1.06 (0.93-1.08) 08/16/16 05:30 APTT 30.6 Seconds (23.7-30.8) 08/16/16 05:30 Sodium 138 mmol/L (132-148) 08/18/16 07:00 Potassium 3.2 mmol/L (3.6-5.0) L 08/18/16 07:00 Chloride 106 mmol/L (98-107) 08/18/16 07:00 Carbon Dioxide 23 mmol/L (21-33) 08/18/16 07:00 Anion Gap 12 (10-20) 08/18/16 07:00 BUN 7 mg/dL (7-21) 08/18/16 07:00 Creatinine 0.7 mg/dL (0.5-1.4) 08/18/16 07:00 Est GFR ( Amer) > 60 08/18/16 07:00 Est GFR (Non-Af Amer) > 60 08/18/16 07:00 POC Glucose (mg/dL) 301 mg/dL (65-110) H 08/16/16 10:59 Random Glucose 69 mg/dL (70-110) L 08/18/16 07:00 Calcium 8.5 mg/dL (8.4-10.5) 08/18/16 07:00 Total Bilirubin 1.1 mg/dL (0.2-1.3) 08/18/16 07:00 AST 31 U/L (15-59) 08/18/16 07:00 ALT 46 U/L (7-56) 08/18/16 07:00 Alkaline Phosphatase 65 U/L (38-133) 08/18/16 07:00 Total Protein 6.7 g/dL (5.8-8.3) 08/18/16 07:00 Albumin 3.0 g/dL (3.0-4.8) 08/18/16 07:00 Globulin 3.7 gm/dL 08/18/16 07:00 Albumin/Globulin Ratio 0.8 (1.1-1.8) L 08/18/16 07:00 Lipase 22 U/L (23-300) L 08/16/16 05:30 - Hospital Course Hospital Course: 46 yo M with extensive h/o alcoholism, opioid abuse and chronic pancreatitis presents to ER with c/o epigastric abdominal pain and emesis since last evening. Patient states he was resting watching TV when he suddenly developed epigastric abdominal pain radiating to his back. He then developed non-bloody, non-bilious emesis with food ingestion. Patient denies diarrhea, fevers, chills , pleurisy. He was recently admitted at [facility] with diagnosis of RLE DVT, however patient signed out AMA prior to investigatory studies for PE, then was admitted in the [facility] for 2 weeks as per patient, IVC filter was placed in for DVT due to history of non compliance. Transferred to remote telemetry from ED for Intractable vomiting. Pt started on liquid diet and diet advanced as tolerated. CT scan of abdomen and Pelvis showed chronic Pancreatitis and constipation, for which a laxative was started. Pt has steady gait, and tolerated heart healthy diet w/o n/v. Pt d/c in stable condition with the following instructions: You are discharged home. Please follow-up with your primary doctor of choice within one week of discharge. As per conversation with you, you currently have a full supply of your home medications, so no new rxs are given. Please resume all home medications including your anti-coagulation medication. Please return to the emergency department for worsening of symptoms. Discharge Exam - Additional Findings Additional findings: - Constitutional Appears: Non-toxic, mildly combative - Head Exam Head Exam: ATRAUMATIC, NORMOCEPHALIC - Eye Exam Eye Exam: EOMI, Normal appearance - ENT Exam ENT Exam: Mucous Membranes Moist, Normal Exam - Respiratory Exam Respiratory Exam: Clear to Auscultation Bilateral, NORMAL BREATHING PATTERN - Cardiovascular Exam Cardiovascular Exam: +S1, +S2. absent: Tachycardia - GI/Abdominal Exam GI & Abdominal Exam: Soft, Tenderness epigastric pain - Extremities Exam Extremities exam: Positive for: peripheral pulses appreciated. Negative for: tenderness - Neurological Exam Neurological exam: Alert, Oriented x3 - Skin Skin Exam: Intact, Normal Color Discharge Plan - Follow Up Plan Condition: STABLE Disposition: HOME/ ROUTINE Instructions: Pancreatitis (DC) Additional Instructions: You are discharged home. Please follow-up with your primary doctor of choice within one week of discharge. As per conversation with you, you currently have a full supply of your home medications, so no new rxs are given. Please resume all home medications including your anti-coagulation medication. Please return to the emergency department for worsening of symptoms. <Tripp Rivera - Last Filed: 09/22/16 07:55> Provider - Provider Date of Admission: 08/16/16 07:29 Attending physician: Tripp Rivera MD Hospital Course - Lab Results Lab Results: Micro Results 08/16/16 10:30 Blood-Venous Blood Culture - Final NO GROWTH AFTER 5 DAYS 08/16/16 10:30 Blood-Venous Gram Stain - Final 08/16/16 09:50 Blood-Venous Blood Culture - Final NO GROWTH AFTER 5 DAYS 08/16/16 09:50 Blood-Venous Gram Stain - Final Most Recent Lab Values WBC 6.0 10^3/ul (4.5-11.0) 08/18/16 07:00 RBC 3.89 10^6/uL (3.5-6.1) 08/18/16 07:00 Hgb 10.1 gm/dL (14.0-18.0) L 08/18/16 07:00 Hct 31.1 % (42.0-52.0) L 08/18/16 07:00 MCV 79.9 fL (80.0-105.0) L 08/18/16 07:00 MCH 26.0 pg (25.0-35.0) 08/18/16 07:00 MCHC 32.5 g/dl (31.0-37.0) 08/18/16 07:00 RDW 14.5 % (11.5-14.5) 08/18/16 07:00 Plt Count 278 10^3/uL (120.0-450.0) 08/18/16 07:00 MPV 10.3 fl (7.0-11.0) 08/18/16 07:00 Gran % 42.9 % (50.0-68.0) L 08/18/16 07:00 Lymph % (Auto) 45.7 % (22.0-35.0) H 08/18/16 07:00 [place] % (Auto) 6.7 % (1.0-6.0) H 08/18/16 07:00 Eos % (Auto) 4.2 % (1.5-5.0) 08/18/16 07:00 Baso % (Auto) 0.5 % (0.0-3.0) 08/18/16 07:00 Gran # 2.57 (1.4-6.5) 08/18/16 07:00 Lymph # 2.7 (1.2-3.4) 08/18/16 07:00 [place] # 0.4 (0.1-0.6) 08/18/16 07:00 Eos # 0.3 (0.0-0.7) 08/18/16 07:00 Baso # 0.03 K/mm3 (0.0-2.0) 08/18/16 07:00 PT 11.4 Seconds (9.9-11.8) 08/16/16 05:30 INR 1.06 (0.93-1.08) 08/16/16 05:30 APTT 30.6 Seconds (23.7-30.8) 08/16/16 05:30 Sodium 138 mmol/L (132-148) 08/18/16 07:00 Potassium 3.2 mmol/L (3.6-5.0) L 08/18/16 07:00 Chloride 106 mmol/L (98-107) 08/18/16 07:00 Carbon Dioxide 23 mmol/L (21-33) 08/18/16 07:00 Anion Gap 12 (10-20) 08/18/16 07:00 BUN 7 mg/dL (7-21) 08/18/16 07:00 Creatinine 0.7 mg/dL (0.5-1.4) 08/18/16 07:00 Est GFR ( Amer) > 60 08/18/16 07:00 Est GFR (Non-Af Amer) > 60 08/18/16 07:00 POC Glucose (mg/dL) 170 mg/dL (65-110) H 08/18/16 11:18 Random Glucose 69 mg/dL (70-110) L 08/18/16 07:00 Calcium 8.5 mg/dL (8.4-10.5) 08/18/16 07:00 Total Bilirubin 1.1 mg/dL (0.2-1.3) 08/18/16 07:00 AST 31 U/L (15-59) 08/18/16 07:00 ALT 46 U/L (7-56) 08/18/16 07:00 Alkaline Phosphatase 65 U/L (38-133) 08/18/16 07:00 Total Protein 6.7 g/dL (5.8-8.3) 08/18/16 07:00 Albumin 3.0 g/dL (3.0-4.8) 08/18/16 07:00 Globulin 3.7 gm/dL 08/18/16 07:00 Albumin/Globulin Ratio 0.8 (1.1-1.8) L 08/18/16 07:00 Lipase 22 U/L (23-300) L 08/16/16 05:30 Attending/Attestation - Attestation I have personally seen and examined this patient.: Yes I have fully participated in the care of the patient.: Yes I have reviewed all pertinent clinical information, including history, physical exam and plan: Yes Notes (Text): 09/22/16 07:51 46 year old male with past medical history of chronic pancreatitis, chronic abdominal pain, opioid abuse and opioid dependency who presented with abdominal pain. CT abd/pelvis showed chronic pancreatitis and constipation. He was started on fluids and antiemetics. He was on laxatives. His symptoms improved and his diet was advanced. He is discharged home to follow up with his pmd. Counselled on risks of continued narcotic abuse. Tripp Rivera MD Hospitalist.
== END 2016-08-18 13:35 | disposition home or self-care (01) ==
LOC: ED 02:36 → ERH 07:29 → 3RNO 11:37
PROVIDERS: ADMIT Hospitalist; ATTEND Internal Medicine
DX: K29.00 Acute gastritis without bleeding (principal); K86.1 Other chronic pancreatitis; E11.65 Type 2 diabetes mellitus with hyperglycemia; K21.9 Gastro-esophageal reflux disease without esophagitis; I10 Essential (primary) hypertension; L03.90 Cellulitis, unspecified; Z79.899 Other long term (current) drug therapy; Z86.718 Personal history of other venous thrombosis and embolism; G62.9 Polyneuropathy, unspecified; D64.9 Anemia, unspecified; F17.210 Nicotine dependence, cigarettes, uncomplicated; Z91.041 Radiographic dye allergy status; F10.10 Alcohol abuse, uncomplicated; F19.10 Other psychoactive substance abuse, uncomplicated; Z86.19 Personal history of other infectious and parasitic diseases; Z91.14 Patient's other noncompliance with medication regimen; G89.4 Chronic pain syndrome; K59.00 Constipation, unspecified
CPT/HCPCS: 36415; 74176; 80053; 82948; 83690; 85025; 85610; 85730; 87040; 93005; 96360; 96374; 99285; C9113; G0378; J1170; J1644; J1885; J2060; J2270; J2405; J3411; J3480; J7040; J7070

== ENCOUNTER 2016-10-06 21:02 | Inpatient (IN) | payer MEDICAID, OTHER ==
[2016-10-06] MEDS ORDERED: Sodium Chloride 0.9% 1,000 ML IV STA ×3 (21:16→23:23)
--- NOTE | 2016-10-06 21:35 | ED PDOC ---
Arrival/HPI - General Chief Complaint: Medical Clearance Time Seen by Provider: 10/06/16 21:06 Historian: Patient - History of Present Illness Narrative History of Present Illness (Text): 10/06/16 21:29 Efra Olivares is a 46 year old male, whose past medical history includes pancreatitis, diabetes, hypertension, ETOH abuse (quit in 2009), and LE DVT in Jun 2016, presents to the emergency department complaining of back pain and abdominal pain associated with nausea and vomiting since yesterday. Today he states that he is unable to walk long distances due to leg cramps and spasms. Patient states that he is on Novolog, Lantus and metformin for diabetes, but has not taken them for past week because he ran out. Patient states he has not taken blood thinners as well for that reason. Denies any fever, headache, dizziness, chest pain, shortness of breath, urinary symptoms, or any other complaints at this time. Time/Duration: Other (since yesterday ) Symptom Onset: Gradual Severity Level: Mild Activities at Onset: Light Past Medical History - Provider Review Nursing Documentation Reviewed: Yes - Infectious Disease Hx of Infectious Diseases: None - Tetanus Immunization Tetanus Immunization: Up to Date - Reproductive Currently : No - Cardiac Hx Cardiac Disorders: Yes Hx Hypertension: Yes - Pulmonary Hx Respiratory Disorders: Yes - Neurological Hx Neurological Disorder: Yes (neuropathy, numbness to toes) - HEENT Hx HEENT Disorder: No - Renal Hx Renal Disorder: No - Endocrine/Metabolic Hx Diabetes Mellitus Type 2: Yes - Hematological/Oncological Hx Blood Disorders: Yes Hx Anemia: Yes - Integumentary Hx Dermatological Disorder: Yes - Musculoskeletal/Rheumatological Hx Falls: Yes - Gastrointestinal Hx Gastrointestinal Disorders: Yes Hx Gastroesophageal Reflux: Yes Hx Pancreatitis: Yes (chronic) - Genitourinary/Gynecological Hx Genitourinary Disorders: No - Psychiatric Hx Psychophysiologic Disorder: No Hx Substance Use: Yes - Past Surgical History Past Surgical History: Non-Contributing - Surgical History Other/Comment: UMBILICAL hernia 9 yrs old - Anesthesia Hx Anesthesia: Yes Hx Anesthesia Reactions: No Hx Malignant Hyperthermia: No - Suicidal Assessment Feels Threatened In Home Enviroment: No Family/Social History - Physician Review Nursing Documentation Reviewed: Yes Family/Social History: No Known Family HX Smoking Status: Current Some Days Smoker Hx Alcohol Use: Yes (quit 2009) Hx Substance Use: Yes Substance used: heroine Hx Substance Use Treatment: No Allergies/Home Meds Allergies/Adverse Reactions: Allergies contrast dye Allergy (Mild, Uncoded 08/16/16 05:01) URTICARIA hives Home Medications: Home Meds Medication Instructions Recorded Confirmed Enalapril Maleate [Vasotec] 10 mg PO DAILY 05/06/16 08/16/16 Fluticasone/Salmeterol 250/50 1 puff IH BID 05/06/16 08/16/16 [Advair Diskus 250/50] Gabapentin [Neurontin] 300 mg PO TID 05/06/16 08/16/16 Simvastatin [Zocor] 20 mg PO DAILY 05/06/16 08/16/16 Review of Systems - Physician Review All systems were reviewed & negative as marked: Yes - Review of Systems Constitutional: Normal. absent: Fatigue, Fevers Respiratory: Normal. absent: SOB, Cough, Sputum Cardiovascular: Normal. absent: Chest Pain, Palpitations Gastrointestinal: Abdominal Pain, Nausea, Vomiting. absent: Diarrhea Genitourinary Male: Normal Musculoskeletal: Back Pain, Other (leg cramps while walking ) Skin: Normal Neurological: Normal. absent: Headache, Dizziness Psychiatric: Normal Physical Exam Vital Signs Reviewed: Yes Vital Signs Temp Pulse Resp BP Pulse Ox 10/07/16 00:24 87 18 110/78 95 10/06/16 22:18 98.9 F 67 20 117/78 97 Temperature: Afebrile Blood Pressure: Normal Pulse: Regular Respiratory Rate: Normal Appearance: Positive for: Well-Appearing, Non-Toxic, Comfortable Pain Distress: None Mental Status: Positive for: Alert and Oriented X 3 - Systems Exam Head: Present: Atraumatic, Normocephalic Pupils: Present: PERRL Conjunctiva: Present: Normal Mouth: Present: Moist Mucous Membranes Respiratory/Chest: Present: Clear to Auscultation, Good Air Exchange. No: Respiratory Distress, Accessory Muscle Use Cardiovascular: Present: Regular Rate and Rhythm, Normal S1, S2. No: Murmurs Abdomen: Present: Normal Bowel Sounds. No: Tenderness, Distention, Peritoneal Signs, Rebound, Guarding Upper Extremity: Present: Normal Inspection. No: Cyanosis, Edema Lower Extremity: Present: Edema (trace edema left leg, 2+ pitting edema right leg. ), NORMAL PULSES, Neurovascularly Intact. No: CALF TENDERNESS, Cyanosis, Tenderness, Erythema, Deformity, Temperature Abnormalties Neurological: Present: GCS=15, CN II-XII Intact, Speech Normal, Motor Func Grossly Intact, Normal Sensory Function Skin: Present: Warm, Dry, Normal Color. No: Rashes Psychiatric: Present: Alert, Oriented x 3, Normal Insight, Normal Concentration Medical Decision Making ED Course and Treatment: 10/06/16 22:27 Patient with elevated blood glucose level of 1054. Will start on fluids and insulin drip. Case discussed with who is aware and agrees with the plan to admit patient to ICU. executive vice president to evaluate patient in ed. 10/07/16 00:38 EKG interpreted by me: NSR @ 72 bpm. Nonspecific T wave abnormality. No STEMI. - Critical Care Critical Care Minutes: 45 minutes - Lab Interpretations Lab Results: 10/06/16 21:40 10/06/16 21:40 Lab Results 10/06/16 22:17: Serum Osmolality 332 H, Alcohol, Quantitative < 10 10/06/16 21:52: Urine Color Yellow, Urine Appearance Clear, Urine pH 6.0, Ur Specific [place] 1.010, Urine Protein Negative, Urine Glucose (UA) >=1000, Urine Ketones Negative, Urine Blood Negative, Urine Nitrate Negative, Urine Bilirubin Negative, Urine Urobilinogen 0.2, Ur Leukocyte Esterase Negative 10/06/16 21:40: Hemoglobin A1c 18.0 H 10/06/16 21:40: HIV 1&2 Ag/Ab, 4th Gen Nonreactive 10/06/16 21:40: Total Creatine Kinase 23 L, Troponin I < 0.01, Lipase 12 L 10/06/16 21:40: Sodium 126 L, Chloride 89 L, Potassium 5.2 H, Carbon Dioxide 27 , Anion Gap 15, BUN 16, Creatinine 1.2, Est GFR ( Amer) > 60, Est GFR ( Non-Af Amer) > 60, Random Glucose 1057 H* D, Calcium 9.3, Total Bilirubin 0.8, AST 37, ALT 69 H, Alkaline Phosphatase 121, Total Creatine Kinase 22 L, Total Protein 7.3, Albumin 3.9, Globulin 3.4, Albumin/Globulin Ratio 1.1, Lipase 12 L 10/06/16 21:40: pO2 43, VBG pH 7.24 L, VBG pCO2 65.0 H, VBG HCO3 27.9, VBG Total CO2 29.9 H, VBG O2 Sat (Calc) 78.6 H, VBG Base Excess -1.0 L, VBG Potassium 5.4 H, Sodium 130.0 L, Chloride 88.0 L, Glucose > 750 H* D, Lactate 2.4 H, FiO2 21.0, Venous Blood Potassium 5.4 H 10/06/16 21:40: WBC 4.0 L D, RBC 4.31, Hgb 11.4 L, Hct 37.8 L, MCV 87.7, MCH 26.5, MCHC 30.2 L, RDW 15.8 H, Plt Count 128, MPV 13.9 H, Gran % 49.5 L, Lymph % (Auto) 41.7 H, [place] % (Auto) 5.0, Eos % (Auto) 3.3, Baso % (Auto) 0.5, Gran # 1.97, Lymph # 1.7, [place] # 0.2, Eos # 0.1, Baso # 0.02 10/06/16 21:10: POC Glucose (mg/dL) > 500 H* I have reviewed the lab results: Yes - Medication Orders Current Medication Orders: Acetaminophen (Tylenol 325mg Tab) 650 mg PO Q6H PRN PRN Reason: Fever >100.4 F Arformoterol Tartrate (Brovana) 15 mcg IH [id number] [facility] Last Admin: 10/08/16 08:59 Dose: Not Given Non-Admin Reason: Patient Refused Atorvastatin Calcium (Lipitor) 10 mg PO DIN [facility] Last Admin: 10/08/16 17:01 Dose: 10 mg Budesonide (Pulmicort Respules) 0.5 mg IH [id number] [facility] Last Admin: 10/08/16 09:00 Dose: Not Given Non-Admin Reason: Patient Refused Enoxaparin Sodium (Lovenox) 100 mg SC Q24H [facility] PRN Reason: Protocol Last Admin: 10/08/16 10:52 Dose: 100 mg Sodium Chloride (Sodium Chloride 0.9%) 1,000 mls @ 120 mls/hr IV .Q8H20M [facility] Last Admin: 10/08/16 17:08 Dose: 120 mls/hr Ibuprofen (Motrin Tab) 600 mg PO Q6H PRN PRN Reason: Pain, Mild (1-3) Last Admin: 10/08/16 01:43 Dose: 600 mg Re-Assess: MAR Pain/Vitals Document 10/08/16 02:43 MJ (Rec: 10/08/16 04:36 MJ [id number]) Pain Reassessment Is This A Pain ReAssessment? Yes Sleep Is patient sleeping during reassessment? Yes Insulin Detemir (Levemir) 15 unit SC DAILY [facility] Last Admin: 10/08/16 10:52 Dose: 15 unit Insulin Human Regular (Humulin R) 0 units SC ACHS [facility] PRN Reason: Protocol Last Admin: 10/08/16 17:01 Dose: 3 units Ketorolac Tromethamine (Toradol) 15 mg IVP Q6 PRN PRN Reason: Pain, moderate (4-7) Morphine Sulfate (Morphine) 2 mg IVP Q4 PRN PRN Reason: Pain, severe (8-10) Last Admin: 10/08/16 17:07 Dose: 2 mg Ondansetron HCl (Zofran Inj) 4 mg IVP Q6 PRN PRN Reason: Nausea/Vomiting Last Admin: 10/08/16 12:18 Dose: 4 mg Pantoprazole Sodium (Protonix Inj) 40 mg IVP DAILY [facility] Last Admin: 10/08/16 10:53 Dose: 40 mg Discontinued Medications Enoxaparin Sodium (Lovenox) 90 mg SC STAT STA PRN Reason: Protocol Stop: 10/06/16 21:45 Last Admin: 10/06/16 22:00 Dose: 90 mg Enoxaparin Sodium (Lovenox) 90 mg SC Q24H [facility] PRN Reason: Protocol Last Admin: 10/06/16 23:22 Dose: Enoxaparin Sodium (Lovenox) 90 mg SC STAT STA PRN Reason: Protocol Stop: 10/07/16 11:37 Last Admin: 10/07/16 12:19 Dose: 90 mg Sodium Chloride (Sodium Chloride 0.9%) 1,000 mls @ 999 mls/hr IV .Q1H1M STA Stop: 10/06/16 22:16 Last Admin: 10/06/16 21:46 Dose: 999 mls/hr Insulin Human Regular 100 (units/ Sodium Chloride) 100 mls @ 8 mls/hr IV .[id number] PRN; Protocol; 8 UNITS/HR PRN Reason: TITRATE PER MD ORDER Last Titration: 10/07/16 04:00 Dose: 0 units/hr, 0 mls/hr Sodium Chloride (Sodium Chloride 0.9%) 1,000 mls @ 999 mls/hr IV .Q1H1M STA Stop: 10/06/16 23:14 Last Admin: 10/06/16 22:17 Dose: 999 mls/hr Potassium Chloride 40 meq/ (Sodium Chloride) 1,020 mls @ 200 mls/hr IV .Q5H6M [facility] Stop: 10/07/16 12:00 Last Admin: 10/07/16 00:07 Dose: 200 mls/hr Sodium Chloride (Sodium Chloride 0.9%) 1,000 mls @ 999 mls/hr IV .Q1H1M STA Stop: 10/07/16 00:23 Last Admin: 10/06/16 23:43 Dose: 999 mls/hr Comments: Gatito Ivis said run NS first before potassium bag. Sodium Chloride (Sodium Chloride 0.9%) 1,000 mls @ 120 mls/hr IV .Q8H20M [facility] Stop: 10/07/16 12:00 Last Admin: 10/07/16 13:04 Dose: Ketorolac Tromethamine (Toradol) 10 mg IVP STAT STA Stop: 10/06/16 21:43 Last Admin: 10/06/16 22:01 Dose: 10 mg Morphine Sulfate (Morphine) 2 mg IVP Q3H [facility] Last Admin: 10/06/16 23:34 Dose: 2 mg Morphine Sulfate (Morphine) 2 mg IVP Q4 PRN PRN Reason: Pain, moderate (4-7) Last Admin: 10/08/16 12:49 Dose: 2 mg Morphine Sulfate (Morphine) 2 mg IVP STAT STA Stop: 10/06/16 23:52 Last Admin: 10/06/16 23:50 Dose: 2 mg - Scribe Statement The provider has reviewed the documentation as recorded by the Aryan Melendez Provider Attestation: Provider Scribe Attestation: All medical record entries made by the Scribe were at my direction and personally dictated by me. I have reviewed the chart and agree that the record accurately reflects my personal performance of the history, physical exam, medical decision making, and the department course for this patient. I have also personally directed, reviewed, and agree with the discharge instructions and disposition. Disposition/Present on Arrival - Present on Arrival Any Indicators Present on Arrival: Yes History of DVT/PE: No History of Uncontrolled Diabetes: Yes Urinary Catheter: No History of Decub. Ulcer: No History Surgical Site Infection Following: None - Disposition Have Diagnosis and Disposition been Completed?: Yes Diagnosis: Hyperosmolar syndrome Disposition: HOSPITALIZED Disposition Time: 22:25 Condition: GUARDED
[2016-10-06] MEDS ORDERED: Enoxaparin 100 mg Syringe SC STA (21:44)
[2016-10-06 21:46] LABS: ADD MANUAL DIFF? NO
[2016-10-06 21:52] LABS: VENOUS BLOOD PH 7.24 (7.32-7.43)
[2016-10-06] MEDS ORDERED: Insulin Regular 1 UNITS/0.01 ML ML IV STA (21:57)
[2016-10-06 22:02] LABS: ALB/GLOB RATIO 1.1 (1.1-1.8); ALKALINE PHOSPHATASE 121 U/L (38-133); ALT/SGPT 69 U/L (7-56); AST/SGOT 37 U/L (15-59); BILIRUBIN,TOTAL 0.8 mg/dL (0.2-1.3); BLOOD UREA NITROGEN 16 mg/dL (7-21); CALCIUM 9.3 mg/dL (8.4-10.5); CARBON DIOXIDE 27 mmol/L (21-33); CHLORIDE 89 mmol/L (98-107); GFR AFRICAN-AMERICAN > 60; POTASSIUM 5.2 mmol/L (3.6-5.0); SODIUM 126 mmol/L (132-148); TOTAL PROTEIN 7.3 g/dL (5.8-8.3)
[2016-10-06 22:10] LABS: URINE APPEARANCE CLEAR (CLEAR); URINE BILIRUBIN NEGATIVE (NEGATIVE); URINE BLOOD NEGATIVE (NEGATIVE); URINE COLOR YELLOW (YELLOW); URINE GLUCOSE (UA) >=1000 mg/dL (NEGATIVE); URINE KETONE NEGATIVE (NEGATIVE); URINE LEUKOCYTE ESTERASE NEGATIVE Leu/uL (NEGATIVE); URINE PROTEIN NEGATIVE mg/dL (<30 mg/dL); URINE UROBILINOGEN 0.2 E.U./dL (<1 E.U./dL)
[2016-10-06] MEDS ORDERED: Insulin Regular 100 UNITS in Sodium Chloride 0.9% 99 ML IV PRN (22:14)
[2016-10-06 22:15] LABS: GLUCOSE,RANDOM 1057 mg/dL (70-110)
[2016-10-06 22:16] LABS: LIPASE 12 U/L (23-300)
[2016-10-06 22:20] VITALS: BMI 28.0
[2016-10-06 22:24] LABS: HEMATOCRIT 37.8 % (42.0-52.0); MEAN CELL VOLUME 87.7 fL (80.0-105.0); MEAN CORPUSCULAR HEMOGLOBIN 26.5 pg (25.0-35.0); MEAN CORPUSCULAR HGB CONC 30.2 g/dl (31.0-37.0)
[2016-10-06 22:25] LABS: BASO # 0.02 K/mm3 (0.0-2.0); BASO % 0.5 % (0.0-3.0); EOS # 0.1 (0.0-0.7); EOS % 3.3 % (1.5-5.0); GRAN # 1.97 (1.4-6.5); GRAN % 49.5 % (50.0-68.0); LYMPH # 1.7 (1.2-3.4); LYMPH % 41.7 % (22.0-35.0); MEAN PLATELET VOLUME 13.9 fl (7.0-11.0); MONO # 0.2 (0.1-0.6); PLATELET COUNT 128 10^3/uL (120.0-450.0); RED CELL DISTRIBUTION WIDTH 15.8 % (11.5-14.5)
[2016-10-06 22:25] LABS: ALCOHOL SERUM < 10 mg/dL (0-10)
[2016-10-06] MEDS ORDERED: Enoxaparin 100 mg Syringe SC SCH (22:45)
[2016-10-06 22:46] LABS: OSMOLALITY,SERUM 332 mosm/kg (271-296)
--- NOTE | 2016-10-06 22:52 | CP.PCM.HP ---
<Gatito Laws - Last Filed: 10/06/16 23:27> History of Present Illness - History of Present Illness History of Present Illness: This patient is well known to the marketing underwriter, Mr. Efra Olivares is a 46yo Homeless male w/ a PMhx of RLE Chronic , COPD, DVT, DM on Insulin non compliant with meds , HLD, HTN, polysubstance abuse, who is presenting to the ED w/ a 2 mo history of generalized body aches, polyuria, abdominal pain. Patient states he has had N /V for the past 4 days which is why he came to the hospital. He denies drinking or any drug use. Admits to being homeless and not taking any meds since discharge on 07/2016. He denies fevers/chills, DOYLE, SOB, dysuria. He admits to vomiting, lower leg swelling on the R worse than left. In the ED the patient is refusing finger sticks saying we are inconveniencing him; he is also refusing ultrasound of his LES saying that it "simply takes too long and is annoying". patient was explained the benefits and risks of not receiving these tests and the patient adamantly refuses even though I explained the possibility of him either ending up in a diabetic coma, or becoming so hypoglycemic from the insulin drip that he has a seizure and dies. The patient understands the risks of not receiving these tests and verbalizes understanding. PMhx: DM on insulin, HTN, HLD, COPD; non compliant with all meds Allergies: Contrast dye Surgeries: not able to recall FamHx: not able to recall Meds: has not been taking any prescribed medications since discharge on 07/2016 Social: denies EtOH and illicit drug use although tox screens have been + in the past Present on Admission - Present on Admission Any Indicators Present on Admission: Yes History of DVT/PE: Yes History of Uncontrolled Diabetes: Yes Urinary Catheter: No Decubitus Ulcer Present: No Review of Systems - Review of Systems All systems: reviewed and no additional remarkable complaints except Past Patient History - Infectious Disease Hx of Infectious Diseases: None - Tetanus Immunizations Tetanus Immunization: Up to Date - Past Medical History & Family History Past Medical History?: Yes - Past Social History Smoking Status: Current Some Days Smoker - CARDIAC Hx Cardiac Disorders: Yes Hx Hypertension: Yes - PULMONARY Hx Respiratory Disorders: Yes - NEUROLOGICAL Hx Neurological Disorder: Yes (neuropathy, numbness to toes) - HEENT Hx HEENT Problems: No - RENAL Hx Chronic Kidney Disease: No - ENDOCRINE/METABOLIC Hx Diabetes Mellitus Type 2: Yes - HEMATOLOGICAL/ONCOLOGICAL Hx Blood Disorders: Yes Hx Anemia: Yes - INTEGUMENTARY Hx Dermatological Problems: Yes - MUSCULOSKELETAL/RHEUMATOLOGICAL Hx Falls: Yes - GASTROINTESTINAL Hx Gastrointestinal Disorders: Yes Hx Gastroesophageal Reflux: Yes Hx Pancreatitis: Yes (chronic) - GENITOURINARY/GYNECOLOGICAL Hx Genitourinary Disorders: No - PSYCHIATRIC Hx Psychophysiologic Disorder: No Hx Substance Use: Yes - SURGICAL HISTORY Other/Comment: UMBILICAL hernia 9 yrs old - ANESTHESIA Hx Anesthesia: Yes Hx Anesthesia Reactions: No Hx Malignant Hyperthermia: No Meds Allergies/Adverse Reactions: Allergies Allergy/AdvReac Type Severity Reaction Status Date / Time contrast dye Allergy Mild URTICARIA Uncoded 08/16/16 05:01 Physical Exam - Constitutional Appears: Non-toxic, Chronically Ill - Head Exam Head Exam: ATRAUMATIC, NORMAL INSPECTION - Eye Exam Eye Exam: EOMI, Normal appearance - ENT Exam ENT Exam: Mucous Membranes Dry - Neck Exam Neck exam: Negative for: Lymphadenopathy - Respiratory Exam Respiratory Exam: Wheezes, NORMAL BREATHING PATTERN. absent: Clear to Auscultation Bilateral, Rales, Rhonchi - Cardiovascular Exam Cardiovascular Exam: REGULAR RHYTHM, +S1, +S2 - GI/Abdominal Exam GI & Abdominal Exam: Normal Bowel Sounds, Tenderness (tenderness in the epigastrium) - Rectal Exam Rectal Exam: Deferred - Extremities Exam Additional comments: Extremely dry scaly legs, swollen and tender on the right more than left, malodorous and unkempt - Back Exam Back exam: NORMAL INSPECTION. absent: CVA tenderness (L), CVA tenderness (R) - Neurological Exam Neurological exam: Alert, CN II-XII Intact, Oriented x3 - Psychiatric Exam Psychiatric exam: Normal Affect - Skin Skin Exam: Dry Additional comments: skin is dry Results - Vital Signs Recent Vital Signs: Last Vital Signs Temp 98.9 F 10/06/16 22:18 Pulse 67 10/06/16 22:18 Resp 20 10/06/16 22:18 BP 117/78 10/06/16 22:18 Pulse Ox 97 10/06/16 22:18 - Labs Result Diagrams: 10/06/16 21:40 10/06/16 21:40 Labs: Laboratory Results - last 24 hr 10/06/16 10/06/16 10/06/16 21:10 21:40 21:40 WBC 4.0 L D RBC 4.31 Hgb 11.4 L Hct 37.8 L MCV 87.7 MCH 26.5 MCHC 30.2 L RDW 15.8 H Plt Count 128 MPV 13.9 H Gran % 49.5 L Lymph % (Auto) 41.7 H [place] % (Auto) 5.0 Eos % (Auto) 3.3 Baso % (Auto) 0.5 Gran # 1.97 Lymph # 1.7 [place] # 0.2 Eos # 0.1 Baso # 0.02 pO2 43 VBG pH 7.24 L VBG pCO2 65.0 H VBG HCO3 27.9 VBG Total CO2 29.9 H VBG O2 Sat (Calc) 78.6 H VBG Base Excess -1.0 L VBG Potassium 5.4 H Sodium 130.0 L Chloride 88.0 L Glucose > 750 H* D Lactate 2.4 H FiO2 21.0 Potassium Carbon Dioxide Anion Gap BUN Creatinine Est GFR ( Amer) Est GFR (Non-Af Amer) POC Glucose (mg/dL) > 500 H* Random Glucose Serum Osmolality Calcium Total Bilirubin AST ALT Alkaline Phosphatase Total Creatine Kinase Total Protein Albumin Globulin Albumin/Globulin Ratio Lipase Venous Blood Potassium 5.4 H Urine Color Urine Appearance Urine pH Ur Specific [place] Urine Protein Urine Glucose (UA) Urine Ketones Urine Blood Urine Nitrate Urine Bilirubin Urine Urobilinogen Ur Leukocyte Esterase Alcohol, Quantitative 10/06/16 10/06/16 10/06/16 21:40 21:52 22:17 WBC RBC Hgb Hct MCV MCH MCHC RDW Plt Count MPV Gran % Lymph % (Auto) [place] % (Auto) Eos % (Auto) Baso % (Auto) Gran # Lymph # [place] # Eos # Baso # pO2 VBG pH VBG pCO2 VBG HCO3 VBG Total CO2 VBG O2 Sat (Calc) VBG Base Excess VBG Potassium Sodium 126 L Chloride 89 L Glucose Lactate FiO2 Potassium 5.2 H Carbon Dioxide 27 Anion Gap 15 BUN 16 Creatinine 1.2 Est GFR ( Amer) > 60 Est GFR (Non-Af Amer) > 60 POC Glucose (mg/dL) Random Glucose 1057 H* D Serum Osmolality 332 H Calcium 9.3 Total Bilirubin 0.8 AST 37 ALT 69 H Alkaline Phosphatase 121 Total Creatine Kinase 22 L Total Protein 7.3 Albumin 3.9 Globulin 3.4 Albumin/Globulin Ratio 1.1 Lipase 12 L Venous Blood Potassium Urine Color Yellow Urine Appearance Clear Urine pH 6.0 Ur Specific [place] 1.010 Urine Protein Negative Urine Glucose (UA) >=1000 Urine Ketones Negative Urine Blood Negative Urine Nitrate Negative Urine Bilirubin Negative Urine Urobilinogen 0.2 Ur Leukocyte Esterase Negative Alcohol, Quantitative < 10 Assessment & Plan - Assessment and Plan (Free Text) Assessment: This is a 46yo M admitted for HONK HONK -Insulin Drip started -Finger sticks Q1H -Fluids w/ potassium -BMP Q4H -f/u ABG results; patient will most likely refuse -only agreeing to blood draws if he receives morphine -200ml/hr NS w/ 40meq of potassium; can stop in the morning Chronic DVT -repeat b/l lower extrem ultrasound ordered; patient is refusing -Lovenox 90mg daily; 90mg given in the ED COPD -c/w home meds; no SOB at this time HTN -c/w home meds HLD -c/w home meds Proph Lovenox 90mg daily Pepcid PO BID Low Carb Diet Case Discussed and Seen with Dr. Belgica Laws PGY1 night Float Decision To Admit - Pt Status Changed To: Hospital Disposition Of: Inpatient Admission - Admit Certification Admit to Inpatient:: After my assessment, the patient will require hospitalization for at least two midnights. This is because of the severity of symptoms shown, intensity of services needed, and/or the medical risk in this patient being treated as an outpatient. - . Bed Request Type: Telemetry Admitting Physician: Kirk Lindo <Kirk Lindo - Last Filed: 10/19/16 02:33> Results - Vital Signs Recent Vital Signs: Last Vital Signs Temp 98.2 F 10/08/16 16:00 Pulse 69 10/08/16 16:00 Resp 20 10/08/16 16:00 BP 119/88 10/08/16 16:00 Pulse Ox 100 10/08/16 16:00 - Labs Result Diagrams: 10/08/16 09:00 10/08/16 08:39 Attending/Attestation - Attestation I have personally seen and examined this patient.: Yes I have fully participated in the care of the patient.: Yes I have reviewed all pertinent clinical information: Yes
[2016-10-06] MEDS ORDERED: Morphine 2 mg/ml ISec IVP SCH (23:30)
[2016-10-06 23:46] LABS: LIPASE 12 U/L (23-300)
[2016-10-06] MEDS ORDERED: Morphine 2 mg/ml ISec IVP STA (23:51)
[2016-10-07 00:09] LABS: TROPONIN I < 0.01 ng/mL
[2016-10-07 00:45] LABS: BLOOD UREA NITROGEN 15 mg/dL (7-21); CALCIUM 8.8 mg/dL (8.4-10.5); CARBON DIOXIDE 23 mmol/L (21-33); CHLORIDE 101 mmol/L (98-107); GFR AFRICAN-AMERICAN > 60; POTASSIUM 4.1 mmol/L (3.6-5.0); SODIUM 135 mmol/L (132-148)
[2016-10-07] MEDS: Morphine 2 mg/ml ISec IVP PRN ×4 (00:59→20:04)
[2016-10-07 01:47] LABS: GLUCOSE,RANDOM 554 mg/dL (70-110)
[2016-10-07] MEDS: Sodium Chloride 0.9% 1,000 ML IV SCH ×3 (02:00→13:04)
[2016-10-07 05:19] LABS: ALB/GLOB RATIO 0.9 (1.1-1.8); ALKALINE PHOSPHATASE 96 U/L (38-133); ALT/SGPT 63 U/L (7-56); AST/SGOT 42 U/L (15-59); BILIRUBIN,TOTAL 0.6 mg/dL (0.2-1.3); BLOOD UREA NITROGEN 15 mg/dL (7-21); CALCIUM 9.1 mg/dL (8.4-10.5); CARBON DIOXIDE 23 mmol/L (21-33); CHLORIDE 108 mmol/L (98-107); GFR AFRICAN-AMERICAN > 60; GLUCOSE,RANDOM 59 mg/dL (70-110); POTASSIUM 3.9 mmol/L (3.6-5.0); SODIUM 138 mmol/L (132-148); TOTAL PROTEIN 6.7 g/dL (5.8-8.3)
[2016-10-07 06:46] LABS: MAGNESIUM 2.2 mg/dL (1.7-2.2); PHOSPHOROUS 2.8 mg/dL (2.5-4.5)
[2016-10-07 07:29] LABS: ADD MANUAL DIFF? NO
[2016-10-07] MEDS: Budesonide 0.5 mg/2 ml Inhal Susp UD IH SCH ×2 (07:29→19:44)
[2016-10-07] MEDS: Arformoterol 15 mcg/2 ml Inh Sol IH SCH ×2 (07:29→19:44)
[2016-10-07 07:32] LABS: VENOUS BLOOD GAS BASE EXCESS -0.8 mmol/L (0.0-2.0); VENOUS BLOOD PH 7.36 (7.32-7.43)
[2016-10-07 07:36] LABS: BASO # 0.03 K/mm3 (0.0-2.0); BASO % 0.6 % (0.0-3.0); EOS # 0.2 (0.0-0.7); EOS % 3.9 % (1.5-5.0); GRAN # 1.53 (1.4-6.5); HEMATOCRIT 31.3 % (42.0-52.0); LYMPH # 3.1 (1.2-3.4); MEAN CELL VOLUME 81.5 fL (80.0-105.0); MEAN CORPUSCULAR HGB CONC 31.9 g/dl (31.0-37.0); MEAN PLATELET VOLUME 11.9 fl (7.0-11.0); MONO # 0.3 (0.1-0.6); MONO % 5.5 % (1.0-6.0); PLATELET COUNT 121 10^3/uL (120.0-450.0); RED CELL DISTRIBUTION WIDTH 14.8 % (11.5-14.5); WHITE BLOOD COUNT 5.1 10^3/ul (4.5-11.0)
--- NOTE | 2016-10-07 07:56 | CP.CCUPN ---
<Neema Lua - Last Filed: 10/07/16 11:43> CCU Subjective - Physician Review Subjective (Free Text): 10/07/16 07:53 Pt seen and examined. States chronic lower back pain. Mild abdominal pain, no N/ V. No CP, SOB CCU Objective - Vital Signs / Intake & Output Vital Signs (Last 4 hours): Vital Signs Temp Pulse Resp BP Pulse Ox 10/07/16 07:42 97.6 F 74 10/07/16 07:30 70 13 100 10/07/16 07:20 66 12 100 10/07/16 07:10 70 13 100 10/07/16 07:00 72 109/71 100 10/07/16 06:50 74 12 100 10/07/16 06:40 70 17 100 10/07/16 06:30 72 14 100 10/07/16 06:21 71 10/07/16 06:20 79 14 100 10/07/16 06:10 73 15 100 10/07/16 06:03 71 10/07/16 06:00 72 11 L 104/70 100 10/07/16 05:50 75 13 100 10/07/16 05:40 76 13 100 10/07/16 05:30 74 12 100 10/07/16 05:20 74 13 100 10/07/16 05:10 72 12 100 10/07/16 05:00 79 13 99/63 L 100 10/07/16 04:50 75 13 100 10/07/16 04:40 72 11 L 100 10/07/16 04:30 71 10 L 100 10/07/16 04:20 71 10 L 100 10/07/16 04:10 72 10 L 100 10/07/16 04:00 75 11 L 95/67 L 100 Intake and Output (Last 8hrs): Intake & Output 10/06/16 10/07/16 10/07/16 22:59 06:59 14:59 Intake Total 1040.5 Output Total 700 Balance 340.5 Weight 157 lb Intake: IV 1040.5 Left Antecubital 1035 Oral 0 Output: Urine 700 Condom 700 Stool 0 Other: # Bowel Movements 0 - Physical Exam Head: Positive for: Atraumatic, Normocephalic Pupils: Positive for: PERRL Conjunctiva: Positive for: Normal Mouth: Positive for: Moist Mucous Membranes Respiratory/Chest: Positive for: Clear to Auscultation, Good Air Exchange. Negative for: Respiratory Distress, Accessory Muscle Use Cardiovascular: Positive for: Regular Rate and Rhythm, Normal S1, S2. Negative for: Murmurs Abdomen: Positive for: Tenderness (diffuse abdominal tenderness), Normal Bowel Sounds. Negative for: Distention, Peritoneal Signs, Rebound, Guarding Upper Extremity: Positive for: Normal Inspection. Negative for: Cyanosis, Edema Lower Extremity: Positive for: Edema (trace edema left leg, 2+ pitting edema right leg. ), NORMAL PULSES, Neurovascularly Intact. Negative for: CALF TENDERNESS, Cyanosis, Tenderness, Erythema, Deformity, Temperature Abnormalties Neurological: Positive for: GCS=15, CN II-XII Intact, Speech Normal, Motor Func Grossly Intact, Normal Sensory Function Skin: Positive for: Warm, Dry, Normal Color. Negative for: Rashes Psychiatric: Positive for: Alert, Oriented x 3, Normal Insight, Normal Concentration - Medications Active Medications: Active Medications Generic Name Dose Route Start Last Admin Trade Name Freq PRN Reason Stop Dose Admin Acetaminophen 650 mg 10/07/16 00:24 Tylenol 325mg Tab PO Q6H PRN Fever >100.4 F Arformoterol Tartrate 15 mcg 10/07/16 08:00 10/07/16 07:29 Brovana IH Not Given [id number] [facility] Atorvastatin Calcium 10 mg 10/07/16 17:00 Lipitor PO DIN [facility] Budesonide 0.5 mg 10/07/16 08:00 10/07/16 07:29 Pulmicort Respules IH Not Given [id number] [facility] Enoxaparin Sodium 90 mg 10/06/16 22:45 10/06/16 23:22 Lovenox SC Not Given Q24H [facility] Protocol Famotidine 40 mg 10/07/16 10:00 Pepcid PO DAILY [facility] Sodium Chloride 1,000 mls @ 120 mls/hr 10/07/16 01:41 10/07/16 02:00 Sodium Chloride 0.9% IV 10/07/16 12:00 120 mls/hr .[id number] [facility] Administration Ibuprofen 600 mg 10/07/16 00:24 10/07/16 01:00 Motrin Tab PO 600 mg Q6H PRN Administration Pain, Mild (1-3) Insulin Detemir 15 unit 10/07/16 10:00 Levemir SC DAILY [facility] Insulin Human Regular 0 units 10/07/16 07:30 Humulin R SC ACHS [facility] Protocol Morphine Sulfate 2 mg 10/06/16 23:46 10/07/16 00:59 Morphine IVP 2 mg Q4 PRN Administration Pain, moderate (4-7) Ondansetron HCl 4 mg 10/06/16 23:46 Zofran Inj IVP Q6 PRN Nausea/Vomiting Pantoprazole Sodium 40 mg 10/07/16 10:00 Protonix Inj IVP DAILY [facility] - Patient Studies Lab Studies: Lab Studies 10/07/16 10/07/16 10/07/16 Range/Units 07:15 07:15 06:13 WBC 5.1 D (4.5-11.0) 10^3/ul RBC 3.84 (3.5-6.1) 10^6/uL Hgb 10.0 L (14.0-18.0) gm/dL Hct 31.3 L (42.0-52.0) % MCV 81.5 (80.0-105.0) fL MCH 26.0 (25.0-35.0) pg MCHC 31.9 (31.0-37.0) g/dl RDW 14.8 H (11.5-14.5) % Plt Count 121 (120.0-450.0) 10^3/uL MPV 11.9 H (7.0-11.0) fl Gran % 30.0 L (50.0-68.0) % Lymph % (Auto) 60.0 H (22.0-35.0) % [place] % (Auto) 5.5 (1.0-6.0) % Eos % (Auto) 3.9 (1.5-5.0) % Baso % (Auto) 0.6 (0.0-3.0) % Gran # 1.53 (1.4-6.5) Lymph # 3.1 (1.2-3.4) [place] # 0.3 (0.1-0.6) Eos # 0.2 (0.0-0.7) Baso # 0.03 (0.0-2.0) K/mm3 pO2 75 H (30-55) mm/Hg VBG pH 7.36 (7.32-7.43) VBG pCO2 44.0 (40-60) VBG HCO3 24.9 (21-28) mmol/l VBG Total CO2 26.3 (22-28) mmol.L VBG O2 Sat (Calc) 97.9 H (40-65) % VBG Base Excess -0.8 L (0.0-2.0) mmol/L VBG Potassium 3.6 (3.6-5.2) mmol/L Glucose 111 H (75-110) mg/dl Lactate 0.8 (0.7-2.1) mmol/L FiO2 21.0 % Sodium 139.0 (132-148) mmol/L Potassium (3.6-5.0) mmol/L Chloride 112.0 H (98-107) mmol/L Carbon Dioxide (21-33) mmol/L Anion Gap (10-20) BUN (7-21) mg/dL Creatinine (0.5-1.4) mg/dL Est GFR ( Amer) Est GFR (Non-Af Amer) POC Glucose (mg/dL) 104 (65-110) mg/dL Random Glucose (70-110) mg/dL Calcium (8.4-10.5) mg/dL Phosphorus (2.5-4.5) mg/dL Magnesium (1.7-2.2) mg/dL Total Bilirubin (0.2-1.3) mg/dL AST (15-59) U/L ALT (7-56) U/L Alkaline Phosphatase (38-133) U/L Total Protein (5.8-8.3) g/dL Albumin (3.0-4.8) g/dL Globulin gm/dL Albumin/Globulin Ratio (1.1-1.8) Venous Blood Potassium 3.6 (3.6-5.2) mmol/L 10/07/16 10/07/16 10/07/16 Range/Units 05:04 04:30 04:30 WBC (4.5-11.0) 10^3/ul RBC (3.5-6.1) 10^6/uL Hgb (14.0-18.0) gm/dL Hct (42.0-52.0) % MCV (80.0-105.0) fL MCH (25.0-35.0) pg MCHC (31.0-37.0) g/dl RDW (11.5-14.5) % Plt Count (120.0-450.0) 10^3/uL MPV (7.0-11.0) fl Gran % (50.0-68.0) % Lymph % (Auto) (22.0-35.0) % [place] % (Auto) (1.0-6.0) % Eos % (Auto) (1.5-5.0) % Baso % (Auto) (0.0-3.0) % Gran # (1.4-6.5) Lymph # (1.2-3.4) [place] # (0.1-0.6) Eos # (0.0-0.7) Baso # (0.0-2.0) K/mm3 pO2 (30-55) mm/Hg VBG pH (7.32-7.43) VBG pCO2 (40-60) VBG HCO3 (21-28) mmol/l VBG Total CO2 (22-28) mmol.L VBG O2 Sat (Calc) (40-65) % VBG Base Excess (0.0-2.0) mmol/L VBG Potassium (3.6-5.2) mmol/L Glucose (75-110) mg/dl Lactate (0.7-2.1) mmol/L FiO2 % Sodium 138 (132-148) mmol/L Potassium 3.9 (3.6-5.0) mmol/L Chloride 108 H (98-107) mmol/L Carbon Dioxide 23 (21-33) mmol/L Anion Gap 11 (10-20) BUN 15 (7-21) mg/dL Creatinine 0.8 (0.5-1.4) mg/dL Est GFR ( Amer) > 60 Est GFR (Non-Af Amer) > 60 POC Glucose (mg/dL) 84 (65-110) mg/dL Random Glucose 59 L (70-110) mg/dL Calcium 9.1 (8.4-10.5) mg/dL Phosphorus 2.8 (2.5-4.5) mg/dL Magnesium 2.2 (1.7-2.2) mg/dL Total Bilirubin 0.6 (0.2-1.3) mg/dL AST 42 (15-59) U/L ALT 63 H (7-56) U/L Alkaline Phosphatase 96 (38-133) U/L Total Protein 6.7 (5.8-8.3) g/dL Albumin 3.2 (3.0-4.8) g/dL Globulin 3.4 gm/dL Albumin/Globulin Ratio 0.9 L (1.1-1.8) Venous Blood Potassium (3.6-5.2) mmol/L 10/07/16 10/07/16 10/07/16 Range/Units 04:08 02:50 01:30 WBC (4.5-11.0) 10^3/ul RBC (3.5-6.1) 10^6/uL Hgb (14.0-18.0) gm/dL Hct (42.0-52.0) % MCV (80.0-105.0) fL MCH (25.0-35.0) pg MCHC (31.0-37.0) g/dl RDW (11.5-14.5) % Plt Count (120.0-450.0) 10^3/uL MPV (7.0-11.0) fl Gran % (50.0-68.0) % Lymph % (Auto) (22.0-35.0) % [place] % (Auto) (1.0-6.0) % Eos % (Auto) (1.5-5.0) % Baso % (Auto) (0.0-3.0) % Gran # (1.4-6.5) Lymph # (1.2-3.4) [place] # (0.1-0.6) Eos # (0.0-0.7) Baso # (0.0-2.0) K/mm3 pO2 (30-55) mm/Hg VBG pH (7.32-7.43) VBG pCO2 (40-60) VBG HCO3 (21-28) mmol/l VBG Total CO2 (22-28) mmol.L VBG O2 Sat (Calc) (40-65) % VBG Base Excess (0.0-2.0) mmol/L VBG Potassium (3.6-5.2) mmol/L Glucose (75-110) mg/dl Lactate (0.7-2.1) mmol/L FiO2 % Sodium (132-148) mmol/L Potassium (3.6-5.0) mmol/L Chloride (98-107) mmol/L Carbon Dioxide (21-33) mmol/L Anion Gap (10-20) BUN (7-21) mg/dL Creatinine (0.5-1.4) mg/dL Est GFR ( Amer) Est GFR (Non-Af Amer) POC Glucose (mg/dL) 54 L 151 H 302 H (65-110) mg/dL Random Glucose (70-110) mg/dL Calcium (8.4-10.5) mg/dL Phosphorus (2.5-4.5) mg/dL Magnesium (1.7-2.2) mg/dL Total Bilirubin (0.2-1.3) mg/dL AST (15-59) U/L ALT (7-56) U/L Alkaline Phosphatase (38-133) U/L Total Protein (5.8-8.3) g/dL Albumin (3.0-4.8) g/dL Globulin gm/dL Albumin/Globulin Ratio (1.1-1.8) Venous Blood Potassium (3.6-5.2) mmol/L 10/07/16 10/06/16 Range/Units 00:10 23:00 WBC (4.5-11.0) 10^3/ul RBC (3.5-6.1) 10^6/uL Hgb (14.0-18.0) gm/dL Hct (42.0-52.0) % MCV (80.0-105.0) fL MCH (25.0-35.0) pg MCHC (31.0-37.0) g/dl RDW (11.5-14.5) % Plt Count (120.0-450.0) 10^3/uL MPV (7.0-11.0) fl Gran % (50.0-68.0) % Lymph % (Auto) (22.0-35.0) % [place] % (Auto) (1.0-6.0) % Eos % (Auto) (1.5-5.0) % Baso % (Auto) (0.0-3.0) % Gran # (1.4-6.5) Lymph # (1.2-3.4) [place] # (0.1-0.6) Eos # (0.0-0.7) Baso # (0.0-2.0) K/mm3 pO2 (30-55) mm/Hg VBG pH (7.32-7.43) VBG pCO2 (40-60) VBG HCO3 (21-28) mmol/l VBG Total CO2 (22-28) mmol.L VBG O2 Sat (Calc) (40-65) % VBG Base Excess (0.0-2.0) mmol/L VBG Potassium (3.6-5.2) mmol/L Glucose (75-110) mg/dl Lactate (0.7-2.1) mmol/L FiO2 % Sodium 135 (132-148) mmol/L Potassium 4.1 (3.6-5.0) mmol/L Chloride 101 (98-107) mmol/L Carbon Dioxide 23 (21-33) mmol/L Anion Gap 15 (10-20) BUN 15 (7-21) mg/dL Creatinine 0.9 (0.5-1.4) mg/dL Est GFR ( Amer) > 60 Est GFR (Non-Af Amer) > 60 POC Glucose (mg/dL) > 500 H* (65-110) mg/dL Random Glucose 554 H* D (70-110) mg/dL Calcium 8.8 (8.4-10.5) mg/dL Phosphorus (2.5-4.5) mg/dL Magnesium (1.7-2.2) mg/dL Total Bilirubin (0.2-1.3) mg/dL AST (15-59) U/L ALT (7-56) U/L Alkaline Phosphatase (38-133) U/L Total Protein (5.8-8.3) g/dL Albumin (3.0-4.8) g/dL Globulin gm/dL Albumin/Globulin Ratio (1.1-1.8) Venous Blood Potassium (3.6-5.2) mmol/L Laboratory Results - last 24 hr 10/06/16 10/07/16 10/07/16 23:00 00:10 01:30 WBC RBC Hgb Hct MCV MCH MCHC RDW Plt Count MPV Gran % Lymph % (Auto) [place] % (Auto) Eos % (Auto) Baso % (Auto) Gran # Lymph # [place] # Eos # Baso # pO2 VBG pH VBG pCO2 VBG HCO3 VBG Total CO2 VBG O2 Sat (Calc) VBG Base Excess VBG Potassium Glucose Lactate FiO2 Sodium 135 Potassium 4.1 Chloride 101 Carbon Dioxide 23 Anion Gap 15 BUN 15 Creatinine 0.9 Est GFR ( Amer) > 60 Est GFR (Non-Af Amer) > 60 POC Glucose (mg/dL) > 500 H* 302 H Random Glucose 554 H* D Calcium 8.8 Phosphorus Magnesium Total Bilirubin AST ALT Alkaline Phosphatase Total Protein Albumin Globulin Albumin/Globulin Ratio Venous Blood Potassium 10/07/16 10/07/16 10/07/16 02:50 04:08 04:30 WBC RBC Hgb Hct MCV MCH MCHC RDW Plt Count MPV Gran % Lymph % (Auto) [place] % (Auto) Eos % (Auto) Baso % (Auto) Gran # Lymph # [place] # Eos # Baso # pO2 VBG pH VBG pCO2 VBG HCO3 VBG Total CO2 VBG O2 Sat (Calc) VBG Base Excess VBG Potassium Glucose Lactate FiO2 Sodium 138 Potassium 3.9 Chloride 108 H Carbon Dioxide 23 Anion Gap 11 BUN 15 Creatinine 0.8 Est GFR ( Amer) > 60 Est GFR (Non-Af Amer) > 60 POC Glucose (mg/dL) 151 H 54 L Random Glucose 59 L Calcium 9.1 Phosphorus Magnesium Total Bilirubin 0.6 AST 42 ALT 63 H Alkaline Phosphatase 96 Total Protein 6.7 Albumin 3.2 Globulin 3.4 Albumin/Globulin Ratio 0.9 L Venous Blood Potassium 10/07/16 10/07/16 10/07/16 04:30 05:04 06:13 WBC RBC Hgb Hct MCV MCH MCHC RDW Plt Count MPV Gran % Lymph % (Auto) [place] % (Auto) Eos % (Auto) Baso % (Auto) Gran # Lymph # [place] # Eos # Baso # pO2 VBG pH VBG pCO2 VBG HCO3 VBG Total CO2 VBG O2 Sat (Calc) VBG Base Excess VBG Potassium Glucose Lactate FiO2 Sodium Potassium Chloride Carbon Dioxide Anion Gap BUN Creatinine Est GFR ( Amer) Est GFR (Non-Af Amer) POC Glucose (mg/dL) 84 104 Random Glucose Calcium Phosphorus 2.8 Magnesium 2.2 Total Bilirubin AST ALT Alkaline Phosphatase Total Protein Albumin Globulin Albumin/Globulin Ratio Venous Blood Potassium 10/07/16 10/07/16 07:15 07:15 WBC 5.1 D RBC 3.84 Hgb 10.0 L Hct 31.3 L MCV 81.5 MCH 26.0 MCHC 31.9 RDW 14.8 H Plt Count 121 MPV 11.9 H Gran % 30.0 L Lymph % (Auto) 60.0 H [place] % (Auto) 5.5 Eos % (Auto) 3.9 Baso % (Auto) 0.6 Gran # 1.53 Lymph # 3.1 [place] # 0.3 Eos # 0.2 Baso # 0.03 pO2 75 H VBG pH 7.36 VBG pCO2 44.0 VBG HCO3 24.9 VBG Total CO2 26.3 VBG O2 Sat (Calc) 97.9 H VBG Base Excess -0.8 L VBG Potassium 3.6 Glucose 111 H Lactate 0.8 FiO2 21.0 Sodium 139.0 Potassium Chloride 112.0 H Carbon Dioxide Anion Gap BUN Creatinine Est GFR ( Amer) Est GFR (Non-Af Amer) POC Glucose (mg/dL) Random Glucose Calcium Phosphorus Magnesium Total Bilirubin AST ALT Alkaline Phosphatase Total Protein Albumin Globulin Albumin/Globulin Ratio Venous Blood Potassium 3.6 EKG/Cardiology Studies: Cardiology / EKG Studies 10/07/16 00:33 ELECTROCARDIOGRAM Stat Comment: Reason For Exam: MEDICAL CLEARANCE Fingerstick Blood Sugar Results: 112 Critical Care Progress Note - Nutrition Nutrition: Nutrition Category Date Time Status Consistent Carbohydrate [DIET] Diets 10/07/16 Breakfast Ordered Assessment/Plan - Assessment and Plan (Free Text) Plan: 46 yo Homeless male w/ a PMH of RLE Chronic , COPD, chronic DVT, DM on Insulin non compliant with meds, HLD, HTN, polysubstance abuse, who is presenting to the ED w/ a 2 mo history of generalized body aches, polyuria, abdominal pain. Pt did not take any meds since discharge on 07/2016. He was admitted to ICU for HONK starting insulin gtt. Neuro - AAOx3, non-cooperative at times Cardio - Lipitor Pulm - Brovana, Pulmicort for COPD Heme - Therapeutic lovenox for chronic DVT, pepcid & protonix - OK for qd dose during in patient, but generally bid dose outpatient - Pending b/l lower extrem ultrasound (pt refused) HONK - Insulin Drip d/c - Levemir 15 u qHS; ISSS - NS@120 - Low Carb Diet Disposition - transfer to med/surg S/R/D/w Dr. Winters - Date & Time Date: 10/07/16 Time: 07:55 <Luis Winters - Last Filed: 10/07/16 15:45> CCU Objective - Vital Signs / Intake & Output Vital Signs (Last 4 hours): Vital Signs Pulse Resp BP Pulse Ox 10/07/16 15:10 69 18 100 10/07/16 15:00 75 19 128/86 100 10/07/16 14:50 71 18 100 10/07/16 14:40 68 18 100 10/07/16 14:30 73 18 100 10/07/16 14:20 68 18 100 10/07/16 14:10 77 17 100 10/07/16 14:02 83 16 132/86 100 10/07/16 14:00 72 28 H 100 10/07/16 13:50 68 17 99 10/07/16 13:40 70 19 100 10/07/16 13:30 79 18 100 10/07/16 13:20 76 17 100 10/07/16 13:10 75 17 100 10/07/16 13:00 75 16 131/92 H 100 10/07/16 12:50 77 16 100 10/07/16 12:40 88 25 H 92 L 10/07/16 12:30 86 19 100 10/07/16 12:20 78 18 100 10/07/16 12:10 71 14 100 10/07/16 12:00 72 10 L 130/82 100 10/07/16 11:50 73 14 100 Intake and Output (Last 8hrs): Intake & Output 10/07/16 10/07/16 10/07/16 06:59 14:59 22:59 Intake Total 1040.5 1320 Output Total 700 100 Balance 340.5 1220 Weight 157 lb Intake: IV 1040.5 960 Left Antecubital 1035 960 Oral 0 360 Output: Urine 700 100 Condom 700 100 Stool 0 Other: # Bowel Movements 0 - Medications Active Medications: Active Medications Generic Name Dose Route Start Last Admin Trade Name Freq PRN Reason Stop Dose Admin Acetaminophen 650 mg 10/07/16 00:24 Tylenol 325mg Tab PO Q6H PRN Fever >100.4 F Arformoterol Tartrate 15 mcg 10/07/16 08:00 10/07/16 07:29 Brovana IH Not Given [id number] [facility] Atorvastatin Calcium 10 mg 10/07/16 17:00 Lipitor PO DIN [facility] Budesonide 0.5 mg 10/07/16 08:00 10/07/16 07:29 Pulmicort Respules IH Not Given [id number] [facility] Enoxaparin Sodium 100 mg 10/08/16 10:00 Lovenox SC Q24H [facility] Protocol Sodium Chloride 1,000 mls @ 120 mls/hr 10/07/16 11:45 10/07/16 12:20 Sodium Chloride 0.9% IV 120 mls/hr .Q8H20M [facility] Administration Ibuprofen 600 mg 10/07/16 00:24 10/07/16 01:00 Motrin Tab PO 600 mg Q6H PRN Administration Pain, Mild (1-3) Insulin Detemir 15 unit 10/07/16 10:00 10/07/16 11:36 Levemir SC 15 unit DAILY [facility] Administration Insulin Human Regular 0 units 10/07/16 07:30 10/07/16 11:36 Humulin R SC 7 units ACHS [facility]ZU Administration Protocol Morphine Sulfate 2 mg 10/06/16 23:46 10/07/16 15:15 Morphine IVP 2 mg Q4 PRN Administration Pain, moderate (4-7) Ondansetron HCl 4 mg 10/06/16 23:46 10/07/16 11:00 Zofran Inj IVP 4 mg Q6 PRN Administration Nausea/Vomiting Pantoprazole Sodium 40 mg 10/07/16 10:00 10/07/16 10:05 Protonix Inj IVP 40 mg DAILY [facility] Administration - Patient Studies Lab Studies: Lab Studies 10/07/16 10/07/16 10/07/16 Range/Units 07:15 07:15 06:13 WBC 5.1 D (4.5-11.0) 10^3/ul RBC 3.84 (3.5-6.1) 10^6/uL Hgb 10.0 L (14.0-18.0) gm/dL Hct 31.3 L (42.0-52.0) % MCV 81.5 (80.0-105.0) fL MCH 26.0 (25.0-35.0) pg MCHC 31.9 (31.0-37.0) g/dl RDW 14.8 H (11.5-14.5) % Plt Count 121 (120.0-450.0) 10^3/uL MPV 11.9 H (7.0-11.0) fl Gran % 30.0 L (50.0-68.0) % Lymph % (Auto) 60.0 H (22.0-35.0) % [place] % (Auto) 5.5 (1.0-6.0) % Eos % (Auto) 3.9 (1.5-5.0) % Baso % (Auto) 0.6 (0.0-3.0) % Gran # 1.53 (1.4-6.5) Lymph # 3.1 (1.2-3.4) [place] # 0.3 (0.1-0.6) Eos # 0.2 (0.0-0.7) Baso # 0.03 (0.0-2.0) K/mm3 pO2 75 H (30-55) mm/Hg VBG pH 7.36 (7.32-7.43) VBG pCO2 44.0 (40-60) VBG HCO3 24.9 (21-28) mmol/l VBG Total CO2 26.3 (22-28) mmol.L VBG O2 Sat (Calc) 97.9 H (40-65) % VBG Base Excess -0.8 L (0.0-2.0) mmol/L VBG Potassium 3.6 (3.6-5.2) mmol/L Glucose 111 H (75-110) mg/dl Lactate 0.8 (0.7-2.1) mmol/L FiO2 21.0 % Sodium 139.0 (132-148) mmol/L Potassium (3.6-5.0) mmol/L Chloride 112.0 H (98-107) mmol/L Carbon Dioxide (21-33) mmol/L Anion Gap (10-20) BUN (7-21) mg/dL Creatinine (0.5-1.4) mg/dL Est GFR ( Amer) Est GFR (Non-Af Amer) POC Glucose (mg/dL) 104 (65-110) mg/dL Random Glucose (70-110) mg/dL Calcium (8.4-10.5) mg/dL Phosphorus (2.5-4.5) mg/dL Magnesium (1.7-2.2) mg/dL Total Bilirubin (0.2-1.3) mg/dL AST (15-59) U/L ALT (7-56) U/L Alkaline Phosphatase (38-133) U/L Total Protein (5.8-8.3) g/dL Albumin (3.0-4.8) g/dL Globulin gm/dL Albumin/Globulin Ratio (1.1-1.8) Venous Blood Potassium 3.6 (3.6-5.2) mmol/L 10/07/16 10/07/16 10/07/16 Range/Units 05:04 04:30 04:30 WBC (4.5-11.0) 10^3/ul RBC (3.5-6.1) 10^6/uL Hgb (14.0-18.0) gm/dL Hct (42.0-52.0) % MCV (80.0-105.0) fL MCH (25.0-35.0) pg MCHC (31.0-37.0) g/dl RDW (11.5-14.5) % Plt Count (120.0-450.0) 10^3/uL MPV (7.0-11.0) fl Gran % (50.0-68.0) % Lymph % (Auto) (22.0-35.0) % [place] % (Auto) (1.0-6.0) % Eos % (Auto) (1.5-5.0) % Baso % (Auto) (0.0-3.0) % Gran # (1.4-6.5) Lymph # (1.2-3.4) [place] # (0.1-0.6) Eos # (0.0-0.7) Baso # (0.0-2.0) K/mm3 pO2 (30-55) mm/Hg VBG pH (7.32-7.43) VBG pCO2 (40-60) VBG HCO3 (21-28) mmol/l VBG Total CO2 (22-28) mmol.L VBG O2 Sat (Calc) (40-65) % VBG Base Excess (0.0-2.0) mmol/L VBG Potassium (3.6-5.2) mmol/L Glucose (75-110) mg/dl Lactate (0.7-2.1) mmol/L FiO2 % Sodium 138 (132-148) mmol/L Potassium 3.9 (3.6-5.0) mmol/L Chloride 108 H (98-107) mmol/L Carbon Dioxide 23 (21-33) mmol/L Anion Gap 11 (10-20) BUN 15 (7-21) mg/dL Creatinine 0.8 (0.5-1.4) mg/dL Est GFR ( Amer) > 60 Est GFR (Non-Af Amer) > 60 POC Glucose (mg/dL) 84 (65-110) mg/dL Random Glucose 59 L (70-110) mg/dL Calcium 9.1 (8.4-10.5) mg/dL Phosphorus 2.8 (2.5-4.5) mg/dL Magnesium 2.2 (1.7-2.2) mg/dL Total Bilirubin 0.6 (0.2-1.3) mg/dL AST 42 (15-59) U/L ALT 63 H (7-56) U/L Alkaline Phosphatase 96 (38-133) U/L Total Protein 6.7 (5.8-8.3) g/dL Albumin 3.2 (3.0-4.8) g/dL Globulin 3.4 gm/dL Albumin/Globulin Ratio 0.9 L (1.1-1.8) Venous Blood Potassium (3.6-5.2) mmol/L 10/07/16 10/07/16 10/07/16 Range/Units 04:08 02:50 01:30 WBC (4.5-11.0) 10^3/ul RBC (3.5-6.1) 10^6/uL Hgb (14.0-18.0) gm/dL Hct (42.0-52.0) % MCV (80.0-105.0) fL MCH (25.0-35.0) pg MCHC (31.0-37.0) g/dl RDW (11.5-14.5) % Plt Count (120.0-450.0) 10^3/uL MPV (7.0-11.0) fl Gran % (50.0-68.0) % Lymph % (Auto) (22.0-35.0) % [place] % (Auto) (1.0-6.0) % Eos % (Auto) (1.5-5.0) % Baso % (Auto) (0.0-3.0) % Gran # (1.4-6.5) Lymph # (1.2-3.4) [place] # (0.1-0.6) Eos # (0.0-0.7) Baso # (0.0-2.0) K/mm3 pO2 (30-55) mm/Hg VBG pH (7.32-7.43) VBG pCO2 (40-60) VBG HCO3 (21-28) mmol/l VBG Total CO2 (22-28) mmol.L VBG O2 Sat (Calc) (40-65) % VBG Base Excess (0.0-2.0) mmol/L VBG Potassium (3.6-5.2) mmol/L Glucose (75-110) mg/dl Lactate (0.7-2.1) mmol/L FiO2 % Sodium (132-148) mmol/L Potassium (3.6-5.0) mmol/L Chloride (98-107) mmol/L Carbon Dioxide (21-33) mmol/L Anion Gap (10-20) BUN (7-21) mg/dL Creatinine (0.5-1.4) mg/dL Est GFR ( Amer) Est GFR (Non-Af Amer) POC Glucose (mg/dL) 54 L 151 H 302 H (65-110) mg/dL Random Glucose (70-110) mg/dL Calcium (8.4-10.5) mg/dL Phosphorus (2.5-4.5) mg/dL Magnesium (1.7-2.2) mg/dL Total Bilirubin (0.2-1.3) mg/dL AST (15-59) U/L ALT (7-56) U/L Alkaline Phosphatase (38-133) U/L Total Protein (5.8-8.3) g/dL Albumin (3.0-4.8) g/dL Globulin gm/dL Albumin/Globulin Ratio (1.1-1.8) Venous Blood Potassium (3.6-5.2) mmol/L 10/07/16 10/06/16 Range/Units 00:10 23:00 WBC (4.5-11.0) 10^3/ul RBC (3.5-6.1) 10^6/uL Hgb (14.0-18.0) gm/dL Hct (42.0-52.0) % MCV (80.0-105.0) fL MCH (25.0-35.0) pg MCHC (31.0-37.0) g/dl RDW (11.5-14.5) % Plt Count (120.0-450.0) 10^3/uL MPV (7.0-11.0) fl Gran % (50.0-68.0) % Lymph % (Auto) (22.0-35.0) % [place] % (Auto) (1.0-6.0) % Eos % (Auto) (1.5-5.0) % Baso % (Auto) (0.0-3.0) % Gran # (1.4-6.5) Lymph # (1.2-3.4) [place] # (0.1-0.6) Eos # (0.0-0.7) Baso # (0.0-2.0) K/mm3 pO2 (30-55) mm/Hg VBG pH (7.32-7.43) VBG pCO2 (40-60) VBG HCO3 (21-28) mmol/l VBG Total CO2 (22-28) mmol.L VBG O2 Sat (Calc) (40-65) % VBG Base Excess (0.0-2.0) mmol/L VBG Potassium (3.6-5.2) mmol/L Glucose (75-110) mg/dl Lactate (0.7-2.1) mmol/L FiO2 % Sodium 135 (132-148) mmol/L Potassium 4.1 (3.6-5.0) mmol/L Chloride 101 (98-107) mmol/L Carbon Dioxide 23 (21-33) mmol/L Anion Gap 15 (10-20) BUN 15 (7-21) mg/dL Creatinine 0.9 (0.5-1.4) mg/dL Est GFR ( Amer) > 60 Est GFR (Non-Af Amer) > 60 POC Glucose (mg/dL) > 500 H* (65-110) mg/dL Random Glucose 554 H* D (70-110) mg/dL Calcium 8.8 (8.4-10.5) mg/dL Phosphorus (2.5-4.5) mg/dL Magnesium (1.7-2.2) mg/dL Total Bilirubin (0.2-1.3) mg/dL AST (15-59) U/L ALT (7-56) U/L Alkaline Phosphatase (38-133) U/L Total Protein (5.8-8.3) g/dL Albumin (3.0-4.8) g/dL Globulin gm/dL Albumin/Globulin Ratio (1.1-1.8) Venous Blood Potassium (3.6-5.2) mmol/L Laboratory Results - last 24 hr 10/06/16 10/07/16 10/07/16 23:00 00:10 01:30 WBC RBC Hgb Hct MCV MCH MCHC RDW Plt Count MPV Gran % Lymph % (Auto) [place] % (Auto) Eos % (Auto) Baso % (Auto) Gran # Lymph # [place] # Eos # Baso # pO2 VBG pH VBG pCO2 VBG HCO3 VBG Total CO2 VBG O2 Sat (Calc) VBG Base Excess VBG Potassium Glucose Lactate FiO2 Sodium 135 Potassium 4.1 Chloride 101 Carbon Dioxide 23 Anion Gap 15 BUN 15 Creatinine 0.9 Est GFR ( Amer) > 60 Est GFR (Non-Af Amer) > 60 POC Glucose (mg/dL) > 500 H* 302 H Random Glucose 554 H* D Calcium 8.8 Phosphorus Magnesium Total Bilirubin AST ALT Alkaline Phosphatase Total Protein Albumin Globulin Albumin/Globulin Ratio Venous Blood Potassium 10/07/16 10/07/16 10/07/16 02:50 04:08 04:30 WBC RBC Hgb Hct MCV MCH MCHC RDW Plt Count MPV Gran % Lymph % (Auto) [place] % (Auto) Eos % (Auto) Baso % (Auto) Gran # Lymph # [place] # Eos # Baso # pO2 VBG pH VBG pCO2 VBG HCO3 VBG Total CO2 VBG O2 Sat (Calc) VBG Base Excess VBG Potassium Glucose Lactate FiO2 Sodium 138 Potassium 3.9 Chloride 108 H Carbon Dioxide 23 Anion Gap 11 BUN 15 Creatinine 0.8 Est GFR ( Amer) > 60 Est GFR (Non-Af Amer) > 60 POC Glucose (mg/dL) 151 H 54 L Random Glucose 59 L Calcium 9.1 Phosphorus Magnesium Total Bilirubin 0.6 AST 42 ALT 63 H Alkaline Phosphatase 96 Total Protein 6.7 Albumin 3.2 Globulin 3.4 Albumin/Globulin Ratio 0.9 L Venous Blood Potassium 10/07/16 10/07/16 10/07/16 04:30 05:04 06:13 WBC RBC Hgb Hct MCV MCH MCHC RDW Plt Count MPV Gran % Lymph % (Auto) [place] % (Auto) Eos % (Auto) Baso % (Auto) Gran # Lymph # [place] # Eos # Baso # pO2 VBG pH VBG pCO2 VBG HCO3 VBG Total CO2 VBG O2 Sat (Calc) VBG Base Excess VBG Potassium Glucose Lactate FiO2 Sodium Potassium Chloride Carbon Dioxide Anion Gap BUN Creatinine Est GFR ( Amer) Est GFR (Non-Af Amer) POC Glucose (mg/dL) 84 104 Random Glucose Calcium Phosphorus 2.8 Magnesium 2.2 Total Bilirubin AST ALT Alkaline Phosphatase Total Protein Albumin Globulin Albumin/Globulin Ratio Venous Blood Potassium 10/07/16 10/07/16 07:15 07:15 WBC 5.1 D RBC 3.84 Hgb 10.0 L Hct 31.3 L MCV 81.5 MCH 26.0 MCHC 31.9 RDW 14.8 H Plt Count 121 MPV 11.9 H Gran % 30.0 L Lymph % (Auto) 60.0 H [place] % (Auto) 5.5 Eos % (Auto) 3.9 Baso % (Auto) 0.6 Gran # 1.53 Lymph # 3.1 [place] # 0.3 Eos # 0.2 Baso # 0.03 pO2 75 H VBG pH 7.36 VBG pCO2 44.0 VBG HCO3 24.9 VBG Total CO2 26.3 VBG O2 Sat (Calc) 97.9 H VBG Base Excess -0.8 L VBG Potassium 3.6 Glucose 111 H Lactate 0.8 FiO2 21.0 Sodium 139.0 Potassium Chloride 112.0 H Carbon Dioxide Anion Gap BUN Creatinine Est GFR ( Amer) Est GFR (Non-Af Amer) POC Glucose (mg/dL) Random Glucose Calcium Phosphorus Magnesium Total Bilirubin AST ALT Alkaline Phosphatase Total Protein Albumin Globulin Albumin/Globulin Ratio Venous Blood Potassium 3.6 EKG/Cardiology Studies: Cardiology / EKG Studies 10/07/16 00:33 ELECTROCARDIOGRAM Stat Comment: Reason For Exam: MEDICAL CLEARANCE Critical Care Progress Note - Nutrition Nutrition: Nutrition Category Date Time Status Consistent Carbohydrate [DIET] Diets 10/07/16 Breakfast Ordered Addendum Addendum: 10/07/16 15:44 Patient was seen, examined and discussed at bedside with Dr. Lua. Her note reflects my exam, assessment and plan, except as below. Meds/Labs/ONE reviewed. 46 yo with DM came with HONK. was fluid resuscitated, insulin drip started. AG closed, switched to sc longer acting formulation of insulin. Oral nutrition is tolerated ok. Ok to downgrade to medsurg ccm time 40 min
[2016-10-07] MEDS: Insulin Regular 1 UNITS/0.01 ML ML SC SCH ×4 (08:10→23:08)
--- NOTE | 2016-10-07 09:11 | RAD ---
HISTORY: uncontrolled diabetes COMPARISON: 06/24/2016 FINDINGS: LUNGS: No active pulmonary disease. PLEURA: No significant pleural effusion identified, no pneumothorax apparent. CARDIOVASCULAR: Normal. OSSEOUS STRUCTURES: No significant abnormalities. VISUALIZED UPPER ABDOMEN: Normal. OTHER FINDINGS: None. IMPRESSION: No active disease.
[2016-10-07] MEDS ORDERED: Fluticasone-Salmeterol 250-50mcg Diskus IH SCH (10:00)
--- NOTE | 2016-10-07 10:51 | CARD ---
APPROVED REPORT EKG Measurement Heart [id number] WI [id number] [id number] <Conclusion> Normal sinus rhythm Septal infarct, old No change except the rate is increased.
[2016-10-07] MEDS ORDERED: Enoxaparin 100 mg Syringe SC STA (11:36)
[2016-10-07] MEDS: Insulin Detemir 100 units/ml Vial (Levemir) SC SCH (11:36)
--- NOTE | 2016-10-07 13:59 | CP.PCM.PN ---
<Smith Goldman - Last Filed: 10/07/16 13:59> Subjective - Date & Time of Evaluation Date of Evaluation: 10/07/16 Time of Evaluation: 07:20 - Subjective Subjective: Hospitalist Progress note: Pt seen and examined at bedside. No acute events overnight. Pt c/o of some abdominal pain and n/v. He also c/o of chronic back pain. No other complaints. Denies any headaches, dizziness, f/c, sob, cp, abd pain, diarrhea, urinary or bm changes. Objective - Vital Signs/Intake and Output Vital Signs (last 24 hours): Temp Pulse Resp BP Pulse Ox 98.7 F 82 15 124/76 100 10/07/16 11:39 10/07/16 10:20 10/07/16 10:20 10/07/16 10:00 10/07/16 10:20 Intake and Output: 10/07/16 10/07/16 06:59 18:59 Intake Total 1040.5 Output Total 700 Balance 340.5 - Medications Medications: Current Medications Acetaminophen (Tylenol 325mg Tab) 650 mg PO Q6H PRN PRN Reason: Fever >100.4 F Arformoterol Tartrate (Brovana) 15 mcg IH [id number] [facility] Last Admin: 10/07/16 07:29 Dose: Not Given Atorvastatin Calcium (Lipitor) 10 mg PO DIN [facility] Budesonide (Pulmicort Respules) 0.5 mg IH [id number] [facility] Last Admin: 10/07/16 07:29 Dose: Not Given Enoxaparin Sodium (Lovenox) 100 mg SC Q24H [facility] PRN Reason: Protocol Sodium Chloride (Sodium Chloride 0.9%) 1,000 mls @ 120 mls/hr IV .Q8H20M [facility] Last Admin: 10/07/16 12:20 Dose: 120 mls/hr Ibuprofen (Motrin Tab) 600 mg PO Q6H PRN PRN Reason: Pain, Mild (1-3) Last Admin: 10/07/16 01:00 Dose: 600 mg Insulin Detemir (Levemir) 15 unit SC DAILY [facility] Last Admin: 10/07/16 11:36 Dose: 15 unit Insulin Human Regular (Humulin R) 0 units SC ACHS [facility] PRN Reason: Protocol Last Admin: 06/09/17 11:36 Dose: 7 units Morphine Sulfate (Morphine) 2 mg IVP Q4 PRN PRN Reason: Pain, moderate (4-7) Last Admin: 10/07/16 10:57 Dose: 2 mg Ondansetron HCl (Zofran Inj) 4 mg IVP Q6 PRN PRN Reason: Nausea/Vomiting Last Admin: 10/07/16 11:00 Dose: 4 mg Pantoprazole Sodium (Protonix Inj) 40 mg IVP DAILY [facility] Last Admin: 10/07/16 10:05 Dose: 40 mg - Labs Labs: 10/07/16 07:15 10/07/16 04:30 - Constitutional Appears: Well - Head Exam Head Exam: ATRAUMATIC, NORMAL INSPECTION, NORMOCEPHALIC - Eye Exam Eye Exam: EOMI, Normal appearance, PERRL Pupil Exam: NORMAL ACCOMODATION, PERRL - ENT Exam ENT Exam: Mucous Membranes Moist, Normal Exam - Neck Exam Neck Exam: Full ROM, Normal Inspection. absent: Lymphadenopathy - Respiratory Exam Respiratory Exam: Clear to Ausculation Bilateral, NORMAL BREATHING PATTERN. absent: Rales, Wheezes - Cardiovascular Exam Cardiovascular Exam: REGULAR RHYTHM, +S1, +S2. absent: Murmur - GI/Abdominal Exam GI & Abdominal Exam: Soft, Tenderness, Normal Bowel Sounds. absent: Distended Additional comments: Mild TTP - Extremities Exam Extremities Exam: Full ROM, Normal Capillary Refill, Normal Inspection. absent : Joint Swelling, Pedal Edema - Back Exam Back Exam: NORMAL INSPECTION - Neurological Exam Neurological Exam: Alert, Awake, CN II-XII Intact, Normal Gait, Oriented x3 - Psychiatric Exam Psychiatric exam: Normal Affect, Normal Mood - Skin Skin Exam: Dry, Intact, Normal Color, Warm Assessment and Plan - Assessment and Plan (Free Text) Assessment: 46 M with pmh of non complinace DM, COPD, chronic DVT admitted for HONK with glucose of 1057. now resolved 1. HONK - resolved - Insulin Drip d/shagufta - Levemir 15units SC - ISS as protocol - ACHS - POC glucose of 104 - Ha1c of 18 - Initial Lactate 2.4 now resolved - IVF NS @ 120 2. Chronic DVT -pt is refusing repeat b/l lower extr ultrasound. All risk of not having it done was explained in detail. -Cont Lovenox 90mg SC daily - F/u heme consult 3. COPD - stable - cont Brovana & Pulmicort 4. HTN -stable - Cont to moniotr 5. HLD -continue Lipitor 6. Proph Lovenox 90mg daily Protonix Case and plan was seen, reviewed, and discussed, in detail with Dr Rivera. <Tripp Rivera - Last Filed: 10/07/16 17:02> Objective - Vital Signs/Intake and Output Vital Signs (last 24 hours): Temp Pulse Resp BP Pulse Ox 98.7 F 69 18 128/86 100 10/07/16 11:39 10/07/16 15:10 10/07/16 15:10 10/07/16 15:00 10/07/16 15:10 Intake and Output: 10/07/16 10/07/16 06:59 18:59 Intake Total 1040.5 1320 Output Total 700 100 Balance 340.5 1220 - Medications Medications: Current Medications Acetaminophen (Tylenol 325mg Tab) 650 mg PO Q6H PRN PRN Reason: Fever >100.4 F Arformoterol Tartrate (Brovana) 15 mcg IH [id number] [facility] Last Admin: 10/07/16 07:29 Dose: Not Given Atorvastatin Calcium (Lipitor) 10 mg PO DIN [facility] Budesonide (Pulmicort Respules) 0.5 mg IH [id number] [facility] Last Admin: 10/07/16 07:29 Dose: Not Given Enoxaparin Sodium (Lovenox) 100 mg SC Q24H [facility] PRN Reason: Protocol Sodium Chloride (Sodium Chloride 0.9%) 1,000 mls @ 120 mls/hr IV .Q8H20M [facility] Last Admin: 10/07/16 12:20 Dose: 120 mls/hr Ibuprofen (Motrin Tab) 600 mg PO Q6H PRN PRN Reason: Pain, Mild (1-3) Last Admin: 10/07/16 01:00 Dose: 600 mg Insulin Detemir (Levemir) 15 unit SC DAILY [facility] Last Admin: 10/07/16 11:36 Dose: 15 unit Insulin Human Regular (Humulin R) 0 units SC ACHS [facility] PRN Reason: Protocol Last Admin: 10/07/16 11:36 Dose: 7 units Morphine Sulfate (Morphine) 2 mg IVP Q4 PRN PRN Reason: Pain, moderate (4-7) Last Admin: 10/07/16 15:15 Dose: 2 mg Ondansetron HCl (Zofran Inj) 4 mg IVP Q6 PRN PRN Reason: Nausea/Vomiting Last Admin: 10/07/16 11:00 Dose: 4 mg Pantoprazole Sodium (Protonix Inj) 40 mg IVP DAILY [facility] Last Admin: 10/07/16 10:05 Dose: 40 mg - Labs Labs: 10/07/16 07:15 10/07/16 04:30 Attending/Attestation - Attestation I have personally seen and examined this patient.: Yes I have fully participated in the care of the patient.: Yes I have reviewed all pertinent clinical information, including history, physical exam and plan: Yes Notes (Text): 10/07/16 16:59 46 year old male with past medical history of diabetes, COPD, chronic pancreatitis, chronic opiate abuse, chronic DVT and history of noncompliance who was admitted for HONK which has resolved after he was started on fluids and insulin drip. Continue with levemir and insulin ss. He was counselled on medication compliance. He is on lovenox for history of chronic DVT. LE doppler was ordered which he is refusing. Hematology consultation was requested. Continue with home medications for COPD. Tripp Rivera MD Hospitalist.
[2016-10-07 14:26] VITALS: O2SAT 100
[2016-10-08] MEDS: Morphine 2 mg/ml ISec IVP PRN ×6 (00:42→21:09)
[2016-10-08 07:50] VITALS: RESP 20
[2016-10-08] MEDS: Insulin Regular 1 UNITS/0.01 ML ML SC SCH ×4 (08:13→23:20)
[2016-10-08] MEDS: Sodium Chloride 0.9% 1,000 ML IV SCH ×2 (08:16→17:08)
[2016-10-08 08:56] LABS: INR 1.06 (0.93-1.08)
[2016-10-08] MEDS: Arformoterol 15 mcg/2 ml Inh Sol IH SCH ×2 (08:59→19:35)
[2016-10-08 09:00] LABS: ALB/GLOB RATIO 0.9 (1.1-1.8); ALKALINE PHOSPHATASE 105 U/L (38-133); ALT/SGPT 63 U/L (7-56); AST/SGOT 60 U/L (15-59); BILIRUBIN,TOTAL 0.7 mg/dL (0.2-1.3); BLOOD UREA NITROGEN 8 mg/dL (7-21); CALCIUM 8.4 mg/dL (8.4-10.5); CARBON DIOXIDE 23 mmol/L (21-33); CHLORIDE 105 mmol/L (95-110); GFR AFRICAN-AMERICAN > 60; GLUCOSE,RANDOM 88 mg/dL (70-110); POTASSIUM 3.5 mmol/L (3.6-5.0); SODIUM 136 mmol/L (132-148); TOTAL PROTEIN 6.1 g/dL (5.8-8.3)
[2016-10-08] MEDS: Budesonide 0.5 mg/2 ml Inhal Susp UD IH SCH ×2 (09:00→19:35)
[2016-10-08 09:11] LABS: ADD MANUAL DIFF? NO
[2016-10-08 09:35] LABS: BASO # 0.01 K/mm3 (0.0-2.0); BASO % 0.2 % (0.0-3.0); EOS # 0.1 (0.0-0.7); EOS % 3.1 % (1.5-5.0); GRAN # 1.42 (1.4-6.5); GRAN % 34.3 % (50.0-68.0); HEMATOCRIT 32.4 % (42.0-52.0); LYMPH # 2.4 (1.2-3.4); LYMPH % 56.9 % (22.0-35.0); MEAN CORPUSCULAR HEMOGLOBIN 26.1 pg (25.0-35.0); MEAN CORPUSCULAR HGB CONC 31.8 g/dl (31.0-37.0); MONO # 0.2 (0.1-0.6); MONO % 5.5 % (1.0-6.0); PLATELET COUNT 118 10^3/uL (120.0-450.0); RED CELL DISTRIBUTION WIDTH 14.6 % (11.5-14.5); WHITE BLOOD COUNT 4.2 10^3/ul (4.5-11.0)
[2016-10-08] MEDS: Enoxaparin 100 mg Syringe SC SCH (10:52)
[2016-10-08] MEDS: Insulin Detemir 100 units/ml Vial (Levemir) SC SCH (10:52)
--- NOTE | 2016-10-08 16:00 | CP.PCM.PN ---
Subjective - Date & Time of Evaluation Date of Evaluation: 10/08/16 Time of Evaluation: 13:00 - Subjective Subjective: Patient seen and examined at bedside.Labs, vitals, notes reviewed. Overnight issues noted. + ongoing nausea and c/o mid-epigastric discomfort.Denies new complaints except chronic paresthesia in lower extremities. Objective - Vital Signs/Intake and Output Vital Signs (last 24 hours): Temp Pulse Resp BP Pulse Ox 98.4 F 65 20 130/95 H 100 10/08/16 07:30 10/08/16 07:30 10/08/16 07:30 10/08/16 07:30 10/08/16 07:30 Intake and Output: 10/08/16 10/08/16 06:59 18:59 Intake Total 360 240 Output Total 750 475 Balance -390 -235 - Medications Medications: Current Medications Acetaminophen (Tylenol 325mg Tab) 650 mg PO Q6H PRN PRN Reason: Fever >100.4 F Arformoterol Tartrate (Brovana) 15 mcg IH [id number] [facility] Last Admin: 10/08/16 08:59 Dose: Not Given Atorvastatin Calcium (Lipitor) 10 mg PO DIN [facility] Last Admin: 10/07/16 18:02 Dose: Not Given Budesonide (Pulmicort Respules) 0.5 mg IH [id number] [facility] Last Admin: 10/08/16 09:00 Dose: Not Given Enoxaparin Sodium (Lovenox) 100 mg SC Q24H [facility] PRN Reason: Protocol Last Admin: 10/08/16 10:52 Dose: 100 mg Sodium Chloride (Sodium Chloride 0.9%) 1,000 mls @ 120 mls/hr IV .Q8H20M [facility] Last Admin: 10/08/16 08:16 Dose: Not Given Ibuprofen (Motrin Tab) 600 mg PO Q6H PRN PRN Reason: Pain, Mild (1-3) Last Admin: 10/08/16 01:43 Dose: 600 mg Insulin Detemir (Levemir) 15 unit SC DAILY [facility] Last Admin: 10/08/16 10:52 Dose: 15 unit Insulin Human Regular (Humulin R) 0 units SC ACHS [facility] PRN Reason: Protocol Last Admin: 10/08/16 12:19 Dose: 5 units Ketorolac Tromethamine (Toradol) 15 mg IVP Q6 PRN PRN Reason: Pain, moderate (4-7) Morphine Sulfate (Morphine) 2 mg IVP Q4 PRN PRN Reason: Pain, severe (8-10) Ondansetron HCl (Zofran Inj) 4 mg IVP Q6 PRN PRN Reason: Nausea/Vomiting Last Admin: 10/08/16 12:18 Dose: 4 mg Pantoprazole Sodium (Protonix Inj) 40 mg IVP DAILY [facility] Last Admin: 10/08/16 10:53 Dose: 40 mg - Labs Labs: 10/08/16 09:00 10/08/16 08:39 PT 11.4 Seconds (9.9-11.8) 10/08/16 08:39 INR 1.06 (0.93-1.08) 10/08/16 08:39 - Constitutional Appears: Well, Non-toxic, No Acute Distress - Head Exam Head Exam: ATRAUMATIC, NORMAL INSPECTION - Eye Exam Eye Exam: Normal appearance, PERRL - ENT Exam ENT Exam: Mucous Membranes Dry, Normal Exam - Neck Exam Neck Exam: Full ROM, Normal Inspection - Respiratory Exam Respiratory Exam: Clear to Ausculation Bilateral, NORMAL BREATHING PATTERN - Cardiovascular Exam Cardiovascular Exam: RRR, +S1, +S2 - GI/Abdominal Exam GI & Abdominal Exam: Soft, Normal Bowel Sounds Additional comments: + mid-epigastric tenderness, + guarding, - rebound - Rectal Exam Rectal Exam: Deferred - Extremities Exam Extremities Exam: Full ROM, Normal Capillary Refill, Normal Inspection - Back Exam Back Exam: Full ROM, NORMAL INSPECTION - Neurological Exam Neurological Exam: Alert, Awake, Oriented x3 - Psychiatric Exam Psychiatric exam: Flat Affect, Normal Mood - Skin Skin Exam: Intact, Normal Color, Warm Assessment and Plan - Assessment and Plan (Free Text) Plan: 46 M with history of non compliance, chronic ETOH abuse, chronic pancreatitis, DM, COPD, chronic DVT admitted for HONK( resolved) and now being managed for symptoms related to chronic pancreatitis. 1. Abdominal Pain possibly 2/2 Chronic Pancreatitis with recent HONK -Continue clear liquid diet with IV fluid support -Continue analgesic and anti-emetic support -Obtain CTAP, GI consult -Continue Levemir 15units SC and ISS 2. Chronic DVT with h/o non-compliance - Continue lovenix, outpatient Elaquis upon discharge -Refusing L/E doppler study 3. COPD - continue Brovana & Pulmicort 4. HTN -monitor 5. HLD -continue Lipitor 6. Supportive -Continue Lovenox 90mg daily -Continue Protonix
--- NOTE | 2016-10-08 16:53 | CP.PCM.CON ---
History of Present Illness - History of Present Illness History of Present Illness: Hematology Consult Referred by Dr. Rivera for h/o DVT HPI- Mr Olivares is 46 y/o M with h/o IDDM, COPD, HTN, polysubstance abuse, multiple hospitalizations and h/o leaving AMA on several times who was admitted now with generalized bodyaches, fatigue, polyuria and abdominal pain. He was found to be in hyperosmolar hyperglycemic state and treated with hydration and IV insulin. His levels are much better now. Review of his records show that he was diagnosed with DVT in right popliteal and right tibial vein in Jun 2016. There was no specific provoking factor that time other than frequent hospitalizations. He was treated with Lovenox and plan was to discharge him on Eliquis. However, he left AMA in that admission and did not start any anticoagulation. Currently, he denies leg pain or swelling. No chest pain, SOB or palpitation. Family and Social history reviewed. Review of Systems - Review of Systems All systems: reviewed and no additional remarkable complaints except Review of Systems: as in HPI Past Patient History - Infectious Disease Hx of Infectious Diseases: None - Tetanus Immunizations Tetanus Immunization: Up to Date - Past Medical History & Family History Past Medical History?: Yes - Past Social History Smoking Status: Smoker Currrent Status Unknown - CARDIAC Hx Cardiac Disorders: Yes Hx Hypertension: Yes - PULMONARY Hx Respiratory Disorders: Yes - NEUROLOGICAL Hx Neurological Disorder: Yes (neuropathy, numbness to toes) - HEENT Hx HEENT Problems: No - RENAL Hx Chronic Kidney Disease: No - ENDOCRINE/METABOLIC Hx Diabetes Mellitus Type 2: Yes - HEMATOLOGICAL/ONCOLOGICAL Hx Blood Disorders: Yes Hx Anemia: Yes - INTEGUMENTARY Hx Dermatological Problems: Yes - MUSCULOSKELETAL/RHEUMATOLOGICAL Hx Falls: Yes - GASTROINTESTINAL Hx Gastrointestinal Disorders: Yes Hx Gastroesophageal Reflux: Yes Hx Pancreatitis: Yes (chronic) - GENITOURINARY/GYNECOLOGICAL Hx Genitourinary Disorders: No - PSYCHIATRIC Hx Psychophysiologic Disorder: No - SURGICAL HISTORY Other/Comment: UMBILICAL hernia 9 yrs old - ANESTHESIA Hx Anesthesia: Yes Hx Anesthesia Reactions: No Hx Malignant Hyperthermia: No Meds Allergies/Adverse Reactions: Allergies Allergy/AdvReac Type Severity Reaction Status Date / Time contrast dye Allergy Mild URTICARIA Uncoded 08/16/16 05:01 - Medications Medications: Current Medications Acetaminophen (Tylenol 325mg Tab) 650 mg PO Q6H PRN PRN Reason: Fever >100.4 F Arformoterol Tartrate (Brovana) 15 mcg IH [id number] [facility] Last Admin: 10/08/16 08:59 Dose: Not Given Atorvastatin Calcium (Lipitor) 10 mg PO DIN [facility] Last Admin: 10/07/16 18:02 Dose: Not Given Budesonide (Pulmicort Respules) 0.5 mg IH [id number] [facility] Last Admin: 10/08/16 09:00 Dose: Not Given Enoxaparin Sodium (Lovenox) 100 mg SC Q24H [facility] PRN Reason: Protocol Last Admin: 10/08/16 10:52 Dose: 100 mg Sodium Chloride (Sodium Chloride 0.9%) 1,000 mls @ 120 mls/hr IV .Q8H20M [facility] Last Admin: 10/08/16 08:16 Dose: Not Given Ibuprofen (Motrin Tab) 600 mg PO Q6H PRN PRN Reason: Pain, Mild (1-3) Last Admin: 10/08/16 01:43 Dose: 600 mg Insulin Detemir (Levemir) 15 unit SC DAILY [facility] Last Admin: 10/08/16 10:52 Dose: 15 unit Insulin Human Regular (Humulin R) 0 units SC ACHS [facility] PRN Reason: Protocol Last Admin: 10/08/16 12:19 Dose: 5 units Ketorolac Tromethamine (Toradol) 15 mg IVP Q6 PRN PRN Reason: Pain, moderate (4-7) Morphine Sulfate (Morphine) 2 mg IVP Q4 PRN PRN Reason: Pain, severe (8-10) Ondansetron HCl (Zofran Inj) 4 mg IVP Q6 PRN PRN Reason: Nausea/Vomiting Last Admin: 10/08/16 12:18 Dose: 4 mg Pantoprazole Sodium (Protonix Inj) 40 mg IVP DAILY [facility] Last Admin: 10/08/16 10:53 Dose: 40 mg Physical Exam - Head Exam Head Exam: ATRAUMATIC, NORMAL INSPECTION - Eye Exam Eye Exam: EOMI, PERRL - ENT Exam ENT Exam: Mucous Membranes Moist - Neck Exam Neck exam: Negative for: Lymphadenopathy - Respiratory Exam Respiratory Exam: Clear to Auscultation Bilateral - Cardiovascular Exam Cardiovascular Exam: REGULAR RHYTHM - GI/Abdominal Exam GI & Abdominal Exam: Normal Bowel Sounds, Soft. absent: Organomegaly, Tenderness - Extremities Exam Extremities exam: Negative for: pedal edema - Neurological Exam Neurological exam: Alert, Oriented x3 Results - Vital Signs Recent Vital Signs: Last Vital Signs Temp 98.4 F 10/08/16 07:30 Pulse 65 10/08/16 07:30 Resp 20 10/08/16 07:30 BP 130/95 H 10/08/16 07:30 Pulse Ox 100 10/08/16 07:30 - Labs Result Diagrams: 10/08/16 09:00 10/08/16 08:39 Labs: Laboratory Results - last 24 hr 10/07/16 10/07/16 10/08/16 07:16 11:27 08:39 WBC RBC Hgb Hct MCV MCH MCHC RDW Plt Count MPV Gran % Lymph % (Auto) Hitchcock % (Auto) Eos % (Auto) Baso % (Auto) Gran # Lymph # Hitchcock # Eos # Baso # PT INR Sodium 136 Potassium 3.5 L Chloride 105 Carbon Dioxide 23 Anion Gap 12 BUN 8 Creatinine 0.6 Est GFR ( Amer) > 60 Est GFR (Non-Af Amer) > 60 POC Glucose (mg/dL) 112 H 307 H Random Glucose 88 Calcium 8.4 Total Bilirubin 0.7 AST 60 H ALT 63 H Alkaline Phosphatase 105 Total Protein 6.1 Albumin 2.9 L Globulin 3.2 Albumin/Globulin Ratio 0.9 L 10/08/16 10/08/16 08:39 09:00 WBC 4.2 L RBC 3.95 Hgb 10.3 L Hct 32.4 L MCV 82.0 MCH 26.1 MCHC 31.8 RDW 14.6 H Plt Count 118 L MPV 13.0 H Gran % 34.3 L Lymph % (Auto) 56.9 H Hitchcock % (Auto) 5.5 Eos % (Auto) 3.1 Baso % (Auto) 0.2 Gran # 1.42 Lymph # 2.4 Hitchcock # 0.2 Eos # 0.1 Baso # 0.01 PT 11.4 INR 1.06 Sodium Potassium Chloride Carbon Dioxide Anion Gap BUN Creatinine Est GFR ( Amer) Est GFR (Non-Af Amer) POC Glucose (mg/dL) Random Glucose Calcium Total Bilirubin AST ALT Alkaline Phosphatase Total Protein Albumin Globulin Albumin/Globulin Ratio Assessment & Plan - Assessment and Plan (Free Text) Assessment: h/o RLE DVT in Jun 2016 -was non compliant with anticoagulation. Currently, he seems to be asymptomatic. He has been refusing repeat US doppler though. I recommended to continue Lovenox while in hospital and I discussed with him several anticoagulation options available. He understands he needs anticoagulation and that there is a risk of recurrent DVT and even PE that could be severe. Can start him on Eliquis 10 mg BID at discharge for 7 days followed by 5 mg BID. He should follow up outpatient to monitor Hb and renal/ liver functions. We discussed the risk of bleeding with Eliquis including severe life threatening bleeding. ' All his questions were answered. Thank you for the consult Garth Ibarra - Date & Time Date: 10/08/16 Time: 16:52
[2016-10-08 17:47] VITALS: BP 119/88; PULSE 69; TEMP 98.2
[2016-10-09] MEDS: Morphine 2 mg/ml ISec IVP PRN ×3 (00:21→09:17)
--- NOTE | 2016-10-09 07:16 | CP.PCM.CON ---
History of Present Illness - History of Present Illness History of Present Illness: Asked by hospitalist team for a GI consultation on this patient. 46 year old male with history of polysubstance abuse, DM, HTN, RLE DVT diagnosed in June 2016 who presents to hospital with complaint of generalized abdominal discomfort and weakness. He describes a diffuse abdominal pain that has been present for the past one week which has been associated with multiple episodes of nausea and non-bloody emesis. He has had recurrent hospitalizations in the past and carries a history of chronic pancreatitis secondary to ETOH abuse which he currently claims to be abstinent from. He does admit to medication non -compliance recently. He denies fever/chills, weight loss, rectal bleeding, or change in bowel habits. This morning he is seen ambulating in hallway and appears comfortable. No prior colonoscopy, he had an EGD in 2014 showing shallow duodenal ulcer and gastritis. Social history: prior ETOH and smoking history, claims to have stopped both Family history: reviewed, patient denies GI malignancies Review of Systems - Review of Systems Review of Systems: - All other comprehensive 12 point review of systems performed, negative - Constitutional Constitutional: Fatigue - Cardiovascular Cardiovascular: absent: Acrocyanosis, Chest Pain, Chest Pain at Rest, Chest Pain with Activity, Claudication, Diaphoresis, Dyspnea, Dyspnea on Exertion, Edema, Irregular Heart Rhythm, Pain Radiating to Arm/Neck/Jaw, Leg Edema, Leg Ulcers, Lightheadedness, Orthopnea, Palpitations, Paroxysmal Nocturnal Dyspnea, Pedal Edema, Radiating Pain, Rapid Heart Rate, Slow Heart Rate, Syncope, Other - Respiratory Respiratory: absent: Cough, Dyspnea, Hemoptysis, Dyspnea on Exertion, Wheezing, Snoring, Stridor, Pain on Inspiration, Chest Congestion, Excessive Mucous Production, Change in Mucous Color, Pain with Coughing, Other - Gastrointestinal Gastrointestinal: Abdominal Pain - Musculoskeletal Musculoskeletal: absent: Abnormal Gait, Arthralgias, Atrophy, Back Pain, Deformity, Joint Swelling, Limited Range of Motion, Loss of Height, Muscle Cramps, Muscle Weakness, Myalgias, Neck Pain, Numbness, Radiating Pain into Limb , Stiffness, Tingling, Other - Neurological Neurological: absent: Abnormal Gait, Abnormal Hearing, Abnormal Movements, Abnormal Speech, Behavioral Changes, Burning Sensations, Confusion, Convulsions , Disequilibrium, Dizziness, Numbness, Focal Weakness, Frequent Falls, Headaches , Lack of Coordination, Loss of Vision, Memory Loss, Paresthesias, Radicular Pain, Restless Legs, Sensory Deficit, Syncope, Tingling, Tremor, Vertigo, Weakness, Other Visual Disturbances, Other Past Patient History - Infectious Disease Hx of Infectious Diseases: None - Tetanus Immunizations Tetanus Immunization: Up to Date - Past Medical History & Family History Past Medical History?: Yes - Past Social History Smoking Status: Current Some Days Smoker - CARDIAC Hx Cardiac Disorders: Yes Hx Hypertension: Yes - PULMONARY Hx Respiratory Disorders: Yes - NEUROLOGICAL Hx Neurological Disorder: Yes (neuropathy, numbness to toes) - HEENT Hx HEENT Problems: No - RENAL Hx Chronic Kidney Disease: No - ENDOCRINE/METABOLIC Hx Diabetes Mellitus Type 2: Yes - HEMATOLOGICAL/ONCOLOGICAL Hx Blood Disorders: Yes Hx Anemia: Yes - INTEGUMENTARY Hx Dermatological Problems: Yes - MUSCULOSKELETAL/RHEUMATOLOGICAL Hx Falls: Yes - GASTROINTESTINAL Hx Gastrointestinal Disorders: Yes Hx Gastroesophageal Reflux: Yes Hx Pancreatitis: Yes (chronic) - GENITOURINARY/GYNECOLOGICAL Hx Genitourinary Disorders: No - PSYCHIATRIC Hx Psychophysiologic Disorder: No Hx Substance Use: Yes - SURGICAL HISTORY Other/Comment: UMBILICAL hernia 9 yrs old - ANESTHESIA Hx Anesthesia: Yes Hx Anesthesia Reactions: No Hx Malignant Hyperthermia: No Meds Allergies/Adverse Reactions: Allergies Allergy/AdvReac Type Severity Reaction Status Date / Time contrast dye Allergy Mild URTICARIA Uncoded 08/16/16 05:01 - Medications Medications: Current Medications Acetaminophen (Tylenol 325mg Tab) 650 mg PO Q6H PRN PRN Reason: Fever >100.4 F Arformoterol Tartrate (Brovana) 15 mcg IH [id number] [facility] Last Admin: 10/08/16 19:35 Dose: Not Given Atorvastatin Calcium (Lipitor) 10 mg PO DIN [facility] Last Admin: 10/08/16 17:01 Dose: 10 mg Budesonide (Pulmicort Respules) 0.5 mg IH [id number] [facility] Last Admin: 10/08/16 19:35 Dose: Not Given Enoxaparin Sodium (Lovenox) 100 mg SC Q24H [facility] PRN Reason: Protocol Last Admin: 10/08/16 10:52 Dose: 100 mg Sodium Chloride (Sodium Chloride 0.9%) 1,000 mls @ 120 mls/hr IV .Q8H20M [facility] Last Admin: 10/08/16 17:08 Dose: 120 mls/hr Ibuprofen (Motrin Tab) 600 mg PO Q6H PRN PRN Reason: Pain, Mild (1-3) Last Admin: 10/08/16 01:43 Dose: 600 mg Insulin Detemir (Levemir) 15 unit SC DAILY [facility] Last Admin: 10/08/16 10:52 Dose: 15 unit Insulin Human Regular (Humulin R) 0 units SC ACHS CRUZ PRN Reason: Protocol Last Admin: 10/08/16 23:20 Dose: Not Given Ketorolac Tromethamine (Toradol) 15 mg IVP Q6 PRN PRN Reason: Pain, moderate (4-7) Morphine Sulfate (Morphine) 2 mg IVP Q4 PRN PRN Reason: Pain, severe (8-10) Last Admin: 10/09/16 04:42 Dose: 2 mg Ondansetron HCl (Zofran Inj) 4 mg IVP Q6 PRN PRN Reason: Nausea/Vomiting Last Admin: 10/09/16 03:40 Dose: 4 mg Pantoprazole Sodium (Protonix Inj) 40 mg IVP DAILY [facility] Last Admin: 10/08/16 10:53 Dose: 40 mg Physical Exam - Constitutional Appears: Non-toxic, No Acute Distress - Head Exam Head Exam: NORMAL INSPECTION - Eye Exam Eye Exam: EOMI, PERRL - ENT Exam ENT Exam: Mucous Membranes Moist - Respiratory Exam Respiratory Exam: Clear to Auscultation Bilateral - Cardiovascular Exam Cardiovascular Exam: REGULAR RHYTHM, +S1, +S2 - GI/Abdominal Exam GI & Abdominal Exam: Normal Bowel Sounds, Soft, Tenderness Additional comments: generalized tenderness to palpation, no rebound/guarding no palpable hepato/splenomegaly - Extremities Exam Extremities exam: Positive for: normal inspection - Neurological Exam Neurological exam: Alert, CN II-XII Intact, Normal Gait, Oriented x3, Reflexes Normal - Psychiatric Exam Psychiatric exam: Normal Affect, Normal Mood - Skin Skin Exam: Dry, Intact, Normal Color, Warm Results - Vital Signs Recent Vital Signs: Last Vital Signs Temp 98.2 F 10/08/16 16:00 Pulse 69 10/08/16 16:00 Resp 20 10/08/16 16:00 BP 119/88 10/08/16 16:00 Pulse Ox 100 10/08/16 16:00 - Labs Result Diagrams: 10/08/16 09:00 10/08/16 08:39 Labs: Laboratory Results - last 24 hr 10/07/16 10/07/16 10/08/16 07:16 11:27 08:39 WBC RBC Hgb Hct MCV MCH MCHC RDW Plt Count MPV Gran % Lymph % (Auto) [place] % (Auto) Eos % (Auto) Baso % (Auto) Gran # Lymph # [place] # Eos # Baso # PT INR Sodium 136 Potassium 3.5 L Chloride 105 Carbon Dioxide 23 Anion Gap 12 BUN 8 Creatinine 0.6 Est GFR ( Amer) > 60 Est GFR (Non-Af Amer) > 60 POC Glucose (mg/dL) 112 H 307 H Random Glucose 88 Calcium 8.4 Total Bilirubin 0.7 AST 60 H ALT 63 H Alkaline Phosphatase 105 Total Protein 6.1 Albumin 2.9 L Globulin 3.2 Albumin/Globulin Ratio 0.9 L 10/08/16 10/08/16 08:39 09:00 WBC 4.2 L RBC 3.95 Hgb 10.3 L Hct 32.4 L MCV 82.0 MCH 26.1 MCHC 31.8 RDW 14.6 H Plt Count 118 L MPV 13.0 H Gran % 34.3 L Lymph % (Auto) 56.9 H [place] % (Auto) 5.5 Eos % (Auto) 3.1 Baso % (Auto) 0.2 Gran # 1.42 Lymph # 2.4 [place] # 0.2 Eos # 0.1 Baso # 0.01 PT 11.4 INR 1.06 Sodium Potassium Chloride Carbon Dioxide Anion Gap BUN Creatinine Est GFR ( Amer) Est GFR (Non-Af Amer) POC Glucose (mg/dL) Random Glucose Calcium Total Bilirubin AST ALT Alkaline Phosphatase Total Protein Albumin Globulin Albumin/Globulin Ratio Assessment & Plan - Assessment and Plan (Free Text) Assessment: DM HTN Chronic pancreatitis, abdominal pain History of polysubstance abuse RLE DVT Plan: - Clear liquid diet advance slowly as tolerated - Continue with PPI therapy - Pain control, caution with opiate use, patient with pain seeking behavior in the past - CT imaging ordered by medical team, follow up results - Continue with IVF hydration and supportive care - Patient may benefit from pancreatic enzyme replacement therapy, has taken them in the past however he has been unable to obtain medication following hospital discharge - Management of DVT as per hematology - Of note, patient specifically requesting Dr. Hood for further GI management
[2016-10-09] MEDS: Budesonide 0.5 mg/2 ml Inhal Susp UD IH SCH (07:20)
[2016-10-09] MEDS: Arformoterol 15 mcg/2 ml Inh Sol IH SCH (07:20)
[2016-10-09] MEDS: Insulin Regular 1 UNITS/0.01 ML ML SC SCH (09:05)
[2016-10-09] MEDS: Insulin Detemir 100 units/ml Vial (Levemir) SC SCH (09:17)
[2016-10-09] MEDS: Enoxaparin 100 mg Syringe SC SCH (09:19)
--- NOTE | 2016-10-09 13:08 | CP.PCM.DIS ---
Provider - Provider Date of Admission: 10/06/16 22:25 Attending physician: Tripp Rivera MD Primary care physician: Donis Love Jr, MD Time Spent in preparation of Discharge (in minutes): 20 (Patient eloped) Hospital Course - Lab Results Lab Results: Micro Results 10/07/16 01:00 Naris MRSA Culture (Admit) - Final MRSA NOT DETECTED Most Recent Lab Values WBC 4.2 10^3/ul (4.5-11.0) L 10/08/16 09:00 RBC 3.95 10^6/uL (3.5-6.1) 10/08/16 09:00 Hgb 10.3 gm/dL (14.0-18.0) L 10/08/16 09:00 Hct 32.4 % (42.0-52.0) L 10/08/16 09:00 MCV 82.0 fL (80.0-105.0) 10/08/16 09:00 MCH 26.1 pg (25.0-35.0) 10/08/16 09:00 MCHC 31.8 g/dl (31.0-37.0) 10/08/16 09:00 RDW 14.6 % (11.5-14.5) H 10/08/16 09:00 Plt Count 118 10^3/uL (120.0-450.0) L 10/08/16 09:00 MPV 13.0 fl (7.0-11.0) H 10/08/16 09:00 Gran % 34.3 % (50.0-68.0) L 10/08/16 09:00 Lymph % (Auto) 56.9 % (22.0-35.0) H 10/08/16 09:00 [place] % (Auto) 5.5 % (1.0-6.0) 10/08/16 09:00 Eos % (Auto) 3.1 % (1.5-5.0) 10/08/16 09:00 Baso % (Auto) 0.2 % (0.0-3.0) 10/08/16 09:00 Gran # 1.42 (1.4-6.5) 10/08/16 09:00 Lymph # 2.4 (1.2-3.4) 10/08/16 09:00 [place] # 0.2 (0.1-0.6) 10/08/16 09:00 Eos # 0.1 (0.0-0.7) 10/08/16 09:00 Baso # 0.01 K/mm3 (0.0-2.0) 10/08/16 09:00 PT 11.4 Seconds (9.9-11.8) 10/08/16 08:39 INR 1.06 (0.93-1.08) 10/08/16 08:39 pO2 75 mm/Hg (30-55) H 10/07/16 07:15 VBG pH 7.36 (7.32-7.43) 10/07/16 07:15 VBG pCO2 44.0 (40-60) 10/07/16 07:15 VBG HCO3 24.9 mmol/l (21-28) 10/07/16 07:15 VBG Total CO2 26.3 mmol.L (22-28) 10/07/16 07:15 VBG O2 Sat (Calc) 97.9 % (40-65) H 10/07/16 07:15 VBG Base Excess -0.8 mmol/L (0.0-2.0) L 10/07/16 07:15 VBG Potassium 3.6 mmol/L (3.6-5.2) 10/07/16 07:15 Sodium 139.0 mmol/L (132-148) 10/07/16 07:15 Chloride 112.0 mmol/L (98-107) H 10/07/16 07:15 Glucose 111 mg/dl (75-110) H 10/07/16 07:15 Lactate 0.8 mmol/L (0.7-2.1) 10/07/16 07:15 FiO2 21.0 % 10/07/16 07:15 Sodium 136 mmol/L (132-148) 10/08/16 08:39 Potassium 3.5 mmol/L (3.6-5.0) L 10/08/16 08:39 Chloride 105 mmol/L (95-110) 10/08/16 08:39 Carbon Dioxide 23 mmol/L (21-33) 10/08/16 08:39 Anion Gap 12 (10-20) 10/08/16 08:39 BUN 8 mg/dL (7-21) 10/08/16 08:39 Creatinine 0.6 mg/dL (0.5-1.4) 10/08/16 08:39 Est GFR ( Amer) > 60 10/08/16 08:39 Est GFR (Non-Af Amer) > 60 10/08/16 08:39 POC Glucose (mg/dL) 307 mg/dL (65-110) H 10/07/16 11:27 Random Glucose 88 mg/dL (70-110) 10/08/16 08:39 Hemoglobin A1c 18.0 % (4.2-6.5) H 10/06/16 21:40 Serum Osmolality 332 mosm/kg (271-296) H 10/06/16 22:17 Calcium 8.4 mg/dL (8.4-10.5) 10/08/16 08:39 Phosphorus 2.8 mg/dL (2.5-4.5) 10/07/16 04:30 Magnesium 2.2 mg/dL (1.7-2.2) 10/07/16 04:30 Total Bilirubin 0.7 mg/dL (0.2-1.3) 10/08/16 08:39 AST 60 U/L (15-59) H 10/08/16 08:39 ALT 63 U/L (7-56) H 10/08/16 08:39 Alkaline Phosphatase 105 U/L (38-133) 10/08/16 08:39 Total Creatine Kinase 23 U/L (35-230) L 10/06/16 21:40 Troponin I < 0.01 ng/mL 10/06/16 21:40 Total Protein 6.1 g/dL (5.8-8.3) 10/08/16 08:39 Albumin 2.9 g/dL (3.0-4.8) L 10/08/16 08:39 Globulin 3.2 gm/dL 10/08/16 08:39 Albumin/Globulin Ratio 0.9 (1.1-1.8) L 10/08/16 08:39 Lipase 12 U/L (23-300) L 10/06/16 21:40 Venous Blood Potassium 3.6 mmol/L (3.6-5.2) 10/07/16 07:15 Urine Color Yellow (YELLOW) 10/06/16 21:52 Urine Appearance Clear (CLEAR) 10/06/16 21:52 Urine pH 6.0 (4.7-8.0) 10/06/16 21:52 Ur Specific [place] 1.010 (1.005-1.035) 10/06/16 21:52 Urine Protein Negative mg/dL (<30 mg/dL) 10/06/16 21:52 Urine Glucose (UA) >=1000 mg/dL (NEGATIVE) 10/06/16 21:52 Urine Ketones Negative mg/dL (NEGATIVE) 10/06/16 21:52 Urine Blood Negative (NEGATIVE) 10/06/16 21:52 Urine Nitrate Negative (NEGATIVE) 10/06/16 21:52 Urine Bilirubin Negative (NEGATIVE) 10/06/16 21:52 Urine Urobilinogen 0.2 E.U./dL (<1 E.U./dL) 10/06/16 21:52 Ur Leukocyte Esterase Negative Rich/uL (NEGATIVE) 10/06/16 21:52 Alcohol, Quantitative < 10 mg/dL (0-10) 10/06/16 22:17 HIV 1&2 Ag/Ab, 4th Gen Nonreactive (Nonreactive) 10/06/16 21:40 - Hospital Course Hospital Course: 46 M with h/o chronic pancreatitis, substance abuse, non compliance, DM was admitted with HONK in this admission along with c/o abdominal pain. He was initially admitted to ICu and then transferred to regular floor for management for his CBG and chronic symptoms. Patient was started on IV fluids, kept NPO and then transitioned to clear liquid diet. He was managed on scale based analgesic regimen. Patient refused a L/E doppler but was started on s/q lovenox for his recently diagnosed DVT. Hematology and GI team were consulted for his symptoms of chronic pancreatitis. Patient decided to elope on 10/09/2016. Discharge Exam - Head Exam Head Exam: NORMAL INSPECTION Additional comments: exam refused by the patient Discharge Plan - Follow Up Plan Condition: GUARDED Disposition: AGAINST MEDICAL ADVICE Additional Instructions: Patient eloped Referrals: Donis Love Jr., MD [Primary Care Provider] -
== END 2016-10-09 11:53 | disposition left against medical advice (07) | DRG 294 ==
LOC: ED 21:02 → ERH 22:25 → CCU 10-07 00:46 → 5RNO 10-07 15:34
PROVIDERS: ADMIT Internal Medicine; ATTEND Internal Medicine
DX: E11.00 Type 2 diabetes mellitus with hyperosmolarity without nonketotic hyperglycemic-hyperosmolar coma (NKHHC) (principal); I82.501 Chronic embolism and thrombosis of unspecified deep veins of right lower extremity; I10 Essential (primary) hypertension; J44.9 Chronic obstructive pulmonary disease, unspecified; F11.10 Opioid abuse, uncomplicated; K86.0 Alcohol-induced chronic pancreatitis; Z91.14 Patient's other noncompliance with medication regimen; F10.10 Alcohol abuse, uncomplicated; E78.5 Hyperlipidemia, unspecified; G89.29 Other chronic pain; M54.5 Low back pain; Z79.4 Long term (current) use of insulin; Z59.0 Homelessness; Z87.891 Personal history of nicotine dependence

== ENCOUNTER 2016-11-06 21:53 | Observation (INO) | payer OTHER ==
[2016-11-06 22:28] VITALS: BMI 23.6
[2016-11-06 22:32] VITALS: TEMP 98.7; O2SAT 98
--- NOTE | 2016-11-06 23:52 | ED PDOC ---
Arrival/HPI <Raciel Jarquin - Last Filed: 11/07/16 00:53> <ANJU WOODARD - Last Filed: 11/07/16 07:13> - General Chief Complaint: Abdominal Pain Time Seen by Provider: 11/06/16 22:58 - History of Present Illness Narrative History of Present Illness (Text): 11/06/16 23:44 Mr. Olivares is a 46 year old male with a pmh significant for chronic pancreatitis, substance abuse, DM, and history DVT with IVC filter placement who presents to the emergency department with a 24 hour history of abdominal pain. Pt reports the pain is a dull, mid-epigastric pain rated as moderate. He indicates for the past 3 days he has not taken his insulin due to lack of supply. He indicates that he has had previous episodes of abdominal pain similar to this current presentation. Mr. Olivares also indicates that his lower legs are more swollen than usual. He indicates they often swell when he is on his feet or walking. He does report a history of DVT in [facility] of 2016 for which he was worked up and ultimately given an IVC filter. He denies fever, chest pain, diarrhea. (ANJU WOODARD) Past Medical History - Provider Review Nursing Documentation Reviewed: Yes <Raciel Jarquin - Last Filed: 11/07/16 00:53> - Provider Review Nursing Documentation Reviewed: Yes - Infectious Disease Hx of Infectious Diseases: None - Tetanus Immunization Tetanus Immunization: Up to Date - Reproductive Currently : No - Cardiac Hx Cardiac Disorders: Yes Hx Hypertension: Yes - Pulmonary Hx Respiratory Disorders: Yes - Neurological Hx Neurological Disorder: Yes (neuropathy, numbness to toes) - HEENT Hx HEENT Disorder: No - Renal Hx Renal Disorder: No - Endocrine/Metabolic Hx Diabetes Mellitus Type 2: Yes - Hematological/Oncological Hx Blood Disorders: Yes Hx Anemia: Yes - Integumentary Hx Dermatological Disorder: Yes - Musculoskeletal/Rheumatological Hx Falls: Yes - Gastrointestinal Hx Gastrointestinal Disorders: Yes Hx Gastroesophageal Reflux: Yes Hx Pancreatitis: Yes (chronic) - Genitourinary/Gynecological Hx Genitourinary Disorders: No - Psychiatric Hx Psychophysiologic Disorder: No Hx Substance Use: Yes - Past Surgical History Past Surgical History: Non-Contributing - Surgical History Other/Comment: UMBILICAL hernia 9 yrs old - Anesthesia Hx Anesthesia: Yes Hx Anesthesia Reactions: No Hx Malignant Hyperthermia: No - Suicidal Assessment Feels Threatened In Home Enviroment: No <ANJU WOODARD - Last Filed: 11/07/16 07:13> Family/Social History - Physician Review Nursing Documentation Reviewed: Yes Family/Social History: No Known Family HX <SonjaernieRaciel - Last Filed: 11/07/16 00:53> - Physician Review Nursing Documentation Reviewed: Yes Family/Social History: No Known Family HX Smoking Status: Current Some Days Smoker Hx Alcohol Use: Yes (quit 2009) Hx Substance Use: Yes Substance used: heroine Hx Substance Use Treatment: No <ANJU WOODARD - Last Filed: 11/07/16 07:13> Allergies/Home Meds <MilkaRaciel - Last Filed: 11/07/16 00:53> <ANJU WOODARD - Last Filed: 11/07/16 07:13> Allergies/Adverse Reactions: Allergies contrast dye Allergy (Mild, Uncoded 11/06/16 22:28) URTICARIA hives Home Medications: Home Meds Medication Instructions Recorded Confirmed Enalapril Maleate [Vasotec] 10 mg PO DAILY 05/06/16 11/06/16 Fluticasone/Salmeterol 250/50 1 puff IH BID 05/06/16 11/06/16 [Advair Diskus 250/50] Gabapentin [Neurontin] 300 mg PO TID 05/06/16 11/06/16 Simvastatin [Zocor] 20 mg PO DAILY 05/06/16 11/06/16 Review of Systems - Physician Review All systems were reviewed & negative as marked: Yes <MilkaRaciel - Last Filed: 11/07/16 00:53> - Review of Systems Constitutional: Fatigue, Fevers (subjective). absent: Weight Change Eyes: absent: Vision Changes Respiratory: absent: SOB, Cough Cardiovascular: Edema. absent: Chest Pain, Palpitations Gastrointestinal: Abdominal Pain, Nausea, Vomiting, Appetite Changes (diminished ) Genitourinary Male: absent: Dysuria, Frequency Skin: absent: Rash, Pruritis Neurological: absent: Headache, Dizziness <ANJU WOODARD - Last Filed: 11/07/16 07:13> Physical Exam Vital Signs Reviewed: Yes Temperature: Afebrile Blood Pressure: Normal Pulse: Regular Respiratory Rate: Normal Appearance: Positive for: Well-Appearing Pain Distress: Moderate Mental Status: Positive for: Alert and Oriented X 3 - Systems Exam Head: Present: Atraumatic, Normocephalic Pupils: Present: PERRL Extroacular Muscles: Present: EOMI Mouth: Present: Moist Mucous Membranes Neck: Present: Normal Range of Motion. No: JVD Respiratory/Chest: Present: Clear to Auscultation, Good Air Exchange. No: Respiratory Distress, Accessory Muscle Use Cardiovascular: Present: Regular Rate and Rhythm, Normal S1, S2. No: Murmurs Abdomen: Present: Tenderness. No: Distention, Normal Bowel Sounds (hypoactive) , Peritoneal Signs Upper Extremity: Present: Normal Inspection. No: Cyanosis, Edema Lower Extremity: Present: Edema (+2), NORMAL PULSES, Neurovascularly Intact. No : Cyanosis, Erythema Neurological: Present: GCS=15, CN II-XII Intact, Speech Normal Skin: Present: Warm, Dry Psychiatric: Present: Alert, Oriented x 3 <ANJU WOODARD - Last Filed: 11/07/16 07:13> Vital Signs Temp Pulse Resp BP Pulse Ox 11/07/16 03:00 77 22 110/72 98 11/06/16 22:32 98.7 F 81 16 105/70 98 11/06/16 22:31 98.7 F 81 16 105/70 98 Medical Decision Making <Raciel Jarquin - Last Filed: 11/07/16 00:53> <ANJU WOODARD - Last Filed: 11/07/16 07:13> ED Course and Treatment: Impression: Pt seen and evaluated with medical specialist. Pt, whose past medical history includes chronic pancreatitis, substance abuse, diabetes, DVT with IVC filter, presented for dull epigastric pain and lower leg swelling. Aware and agree with HPI, clinical findings, plan, and management. Plan: -- CT Abdomen and Pelvis w/o contrast -- US Duplex Lower Extremities -- Labs, amylase, lipase -- IV fluids -- Insulin -- Reassess and disposition Progress Notes: (Raciel Jarquin) 11/06/16 23:55 Impression: Mr. Olivares is a 46 year old male who presents to the emergency department complaining of mid-abdominal pain and increased lower extremity swelling from baseline. Diff Dx - Acute on Chronic Pancreatitis Plan: - CBC, CMP, Lipase, Amylase - CT scan of Abdomen - NPO - IVF Progress notes: U/S negative b/l (ANJU WOODARD) - Lab Interpretations Lab Results: 11/06/16 23:52 11/06/16 23:52 Lab Results 11/06/16 23:52: Sodium 132, Potassium 4.3, Chloride 94 L, Carbon Dioxide 27, Anion Gap 15, BUN 12, Creatinine 0.8, Est GFR ( Amer) > 60, Est GFR (Non- Af Amer) > 60, Random Glucose 573 H* D, Calcium 9.0, Total Bilirubin 0.8, AST 43 , ALT 61 H, Alkaline Phosphatase 120, Total Protein 7.1, Albumin 3.8, Globulin 3.4, Albumin/Globulin Ratio 1.1, Amylase 88, Lipase < 10 L 11/06/16 23:52: WBC 4.9, RBC 3.82, Hgb 10.2 L, Hct 32.3 L, MCV 84.6, MCH 26.7, MCHC 31.6, RDW 15.6 H, Plt Count 280, MPV 10.7 - RAD Interpretation Radiology Orders: 11/06/16 23:20 ABD & PELVIS W/O PO OR IV CONT [CT] Stat DUPLEX LOWER EXTRM VEIN BILAT [US] Stat - Medication Orders Current Medication Orders: Discontinued Medications Sodium Chloride (Sodium Chloride 0.9%) 1,000 mls @ 999 mls/hr IV .Q1H1M STA Stop: 11/07/16 00:17 Last Admin: 11/07/16 04:39 Dose: 999 mls/hr Insulin Human Regular (Humulin R) 10 units IVP STAT STA Stop: 11/07/16 00:44 Last Admin: 11/07/16 02:47 Dose: 10 units Insulin Human Regular (Humulin R) 8 units IVP STAT STA Stop: 11/07/16 05:23 Last Admin: 11/07/16 05:33 Dose: 8 units ED OBSERVATION <Raciel Jarquin - Last Filed: 11/07/16 00:53> Date of observation admission: 11/07/16 Time of observation admission: 00:00 <ANJU WOODARD - Last Filed: 11/07/16 07:13> - Observation admission statement Patient is being placed in observation because:: Hyperglycemia (ANJU WOODARD) - Goals of Observation Goals of observation are:: lower and stablize glucose levels (ANJU WOODARD) - Progress Note Progress Note: 11/07/16 02:00 - Pt stable resting in bed 11/07/16 04:00 - Pt stable resting in bed 11/07/16 06:00 - Pt stable resting in bed (ANJU WOODARD) - PA / CEMETERY MANAGER / Resident Statement /DO has reviewed & agrees with the documentation as recorded. / has examined the patient and agrees with the treatment plan. <ANJU WOODARD - Last Filed: 11/07/16 07:13> Disposition/Present on Arrival <Raciel Jarquin - Last Filed: 11/07/16 00:53> - Present on Arrival Any Indicators Present on Arrival: Yes History of DVT/PE: Yes History of Uncontrolled Diabetes: Yes Urinary Catheter: No History of Decub. Ulcer: No History Surgical Site Infection Following: None - Disposition Have Diagnosis and Disposition been Completed?: Yes Disposition Time: 07:00 <ANJU WOODARD - Last Filed: 11/07/16 07:13> - Disposition Diagnosis: Acute on chronic pancreatitis, Pancreatitis Disposition: HOME/ ROUTINE Patient Problems: Current Active Problems Problem Status Onset Acute on chronic pancreatitis Acute Pancreatitis Chronic Condition: GOOD
[2016-11-07 00:05] LABS: HEMOGLOBIN 10.2 gm/dL (14.0-18.0); MEAN CELL VOLUME 84.6 fL (80.0-105.0); MEAN CORPUSCULAR HEMOGLOBIN 26.7 pg (25.0-35.0); MEAN CORPUSCULAR HGB CONC 31.6 g/dl (31.0-37.0); MEAN PLATELET VOLUME 10.7 fl (7.0-11.0); RBC 3.82 10^6/uL (3.5-6.1); RED CELL DISTRIBUTION WIDTH 15.6 % (11.5-14.5); WHITE BLOOD COUNT 4.9 10^3/ul (4.5-11.0)
[2016-11-07 00:18] LABS: ALB/GLOB RATIO 1.1 (1.1-1.8); ALBUMIN 3.8 g/dL (3.0-4.8); ALT/SGPT 61 U/L (7-56); AMYLASE 88 U/L (35-125); AST/SGOT 43 U/L (15-59); BLOOD UREA NITROGEN 12 mg/dL (7-21); GFR AFRICAN-AMERICAN > 60; GFR NON-AFRICAN AMERICAN > 60; LIPASE < 10 U/L (23-300)
[2016-11-07] MEDS ORDERED: Insulin Regular 1 UNITS/0.01 ML ML IVP STA ×2 (00:43→05:22)
--- NOTE | 2016-11-07 01:39 | CT ---
EXAM: CT Abdomen and Pelvis Without Intravenous Contrast CLINICAL HISTORY: 46 years old, male; Pain; Abdominal pain; Generalized TECHNIQUE: Axial computed tomography images of the abdomen and pelvis without intravenous contrast. This CT exam was performed using one or more of the following dose reduction techniques: automated exposure control, adjustment of the mA and/or kV according to patient size, and/or use of iterative reconstruction technique. Coronal and sagittal reformatted images were created and reviewed. COMPARISON: CT - ABD PELVIS W/O PO OR IV CONT 08/17/2016 1:48:17 PM FINDINGS: Limitations: Lack of intravenous contrast. Lower thorax: No acute findings. ABDOMEN: Liver: Unremarkable. Gallbladder and bile ducts: No calcified stones. No ductal dilation. Pancreas: Multiple calcifications within pancreas. No ductal dilation. Spleen: Dystrophic calcification within/about spleen, stable. No splenomegaly. Adrenals: No mass. Kidneys and ureters: No renal calculi. No hydronephrosis. Stomach and bowel: Large amount of stool within colon. No definite mural thickening. No obstruction. Appendix: No findings to suggest acute appendicitis. PELVIS: Bladder: Distended bladder. No stones. Reproductive: Unremarkable as visualized. ABDOMEN and PELVIS: Intraperitoneal space: No significant fluid collection. No free air. Bones/joints: No acute fracture. Soft tissues: Mild stranding within subcutaneous tissues. Infiltration of intraabdominal and intrapelvic fat. Vasculature: IVC filter. Minimal atherosclerotic disease of aorta. No aneurysm. Lymph nodes: No pathologically enlarged lymph nodes. IMPRESSION: 1. Chronic pancreatitis. 2. Constipation. 3. Soft tissue edema, nonspecific. Clinical correlation is needed. 4. Incidental/non-acute findings are described above.
[2016-11-07] MEDS: Sodium Chloride 0.9% 1,000 ML IV STA ×2 (02:44→04:39)
[2016-11-07 04:47] VITALS: BP 110/72; PULSE 77; RESP 22
--- NOTE | 2016-11-07 13:38 | US ---
HISTORY: Leg pain and swelling. Evaluate for DVT PHYSICIAN(S): Glen Davis MD. TECHNIQUE: Duplex sonography and color-flow Doppler with graded compression were used to evaluate the deep venous systems of both lower extremities. FINDINGS: The visualized deep venous systems of both lower extremities are sonographically normal and compressible. Normal wave forms and augmentation are seen. There is no sonographic evidence for deep venous thrombosis in the visualized segments of both lower extremities. IMPRESSION: No sonographic evidence for deep venous thrombosis in the visualized segments of both lower extremities.
== END 2016-11-07 10:59 | disposition home or self-care (01) ==
LOC: ED 21:53 → EROBSV 11-07
PROVIDERS: ADMIT Emergency Medicine; ATTEND Emergency Medicine
DX: K85.90 Acute pancreatitis without necrosis or infection, unspecified (principal); K86.1 Other chronic pancreatitis; E11.9 Type 2 diabetes mellitus without complications; I10 Essential (primary) hypertension; F17.210 Nicotine dependence, cigarettes, uncomplicated
CPT/HCPCS: 74176; 80053; 82150; 82948; 83690; 85027; 93970; 96361; 96374; 96376; 99285; G0378; J7040

== ENCOUNTER 2017-04-18 01:21 | Observation (INO) | payer MEDICAID, OTHER ==
[2017-04-18 01:22] VITALS: BMI 23.6
--- NOTE | 2017-04-18 01:44 | ED PDOC ---
Arrival/HPI - General Chief Complaint: Abdominal Pain Time Seen by Provider: 04/18/17 01:38 Historian: Patient - History of Present Illness Narrative History of Present Illness (Text): 04/18/17 01:44 Efra Olivares is a 47 year old male, whose past medical history includes asthma , anemia, diabetes, chronic pancreatitis IVC s/p DVT, hypertension, COPD, and hyperlipdemia, who presents to the Emergency department complaining of abdominal discomfort radiating to his back for the past few days. Patient reports associated vomiting. Patient is homeless. Patient denies any recent alcohol abuse. Patient denies any fever, chills, chest pain, shortness of breath , diarrhea, urinary symptoms, neck pain, headache, dizziness, or any other complaints. Time/Duration: Other (few days) Symptom Onset: Gradual Symptom Course: Unchanged Activities at Onset: Light Past Medical History - Provider Review Nursing Documentation Reviewed: Yes - Infectious Disease Hx of Infectious Diseases: None - Tetanus Immunization Tetanus Immunization: Up to Date - Cardiac Hx Hypertension: Yes - Pulmonary Hx Chronic Obstructive Pulmonary Disease (COPD): Yes - Neurological Hx Neurological Disorder: Yes (neuropathy, numbness to toes) - HEENT Hx HEENT Disorder: No - Renal Hx Renal Disorder: No - Endocrine/Metabolic Hx Diabetes Mellitus Type 2: Yes - Hematological/Oncological Hx Anemia: Yes - Integumentary Hx Dermatological Disorder: Yes - Musculoskeletal/Rheumatological Hx Falls: Yes - Gastrointestinal Hx Pancreatitis: Yes (chronic) - Genitourinary/Gynecological Hx Genitourinary Disorders: No - Psychiatric Hx Depression: No Hx Substance Use: Yes - Past Surgical History Past Surgical History: Non-Contributing - Surgical History Other/Comment: UMBILICAL hernia 9 yrs old - Anesthesia Hx Anesthesia: Yes Hx Anesthesia Reactions: No Hx Malignant Hyperthermia: No - Suicidal Assessment Feels Threatened In Home Enviroment: No Family/Social History - Physician Review Nursing Documentation Reviewed: Yes Family/Social History: Unknown Family HX Smoking Status: Former Smoker Hx Alcohol Use: Yes Hx Substance Use: Yes Substance used: heroine Hx Substance Use Treatment: No Allergies/Home Meds Allergies/Adverse Reactions: Allergies contrast dye Allergy (Mild, Uncoded 01/22/17 16:34) URTICARIA hives Review of Systems - Physician Review All systems were reviewed & negative as marked: Yes - Review of Systems Constitutional: Normal. absent: Fevers Eyes: Normal ENT: Normal Respiratory: Normal. absent: SOB, Cough Cardiovascular: Normal. absent: Chest Pain Gastrointestinal: Abdominal Pain, Vomiting Genitourinary Male: Normal. absent: Dysuria, Frequency, Hematuria, Urinary Output Changes Musculoskeletal: Back Pain. absent: Neck Pain Skin: Normal. absent: Rash Neurological: Normal. absent: Headache, Dizziness Endocrine: Normal Hemo/Lymphatic: Normal Psychiatric: Normal Physical Exam Vital Signs Reviewed: Yes Vital Signs Temp Pulse Resp BP Pulse Ox 04/18/17 01:37 98.9 F 104 H 20 123/98 H 100 Temperature: Afebrile Blood Pressure: Normal Pulse: Regular Respiratory Rate: Normal Appearance: Positive for: Well-Appearing, Non-Toxic, Comfortable Pain Distress: None Mental Status: Positive for: Alert and Oriented X 3 - Systems Exam Head: Present: Atraumatic, Normocephalic Pupils: Present: PERRL Extroacular Muscles: Present: EOMI Conjunctiva: Present: Normal Mouth: Present: Moist Mucous Membranes Neck: Present: Normal Range of Motion Respiratory/Chest: Present: Clear to Auscultation, Good Air Exchange. No: Respiratory Distress, Accessory Muscle Use Cardiovascular: Present: Regular Rate and Rhythm, Normal S1, S2. No: Murmurs Abdomen: Present: Normal Bowel Sounds. No: Tenderness, Distention, Peritoneal Signs Back: Present: Normal Inspection Upper Extremity: Present: Normal Inspection. No: Cyanosis, Edema Lower Extremity: Present: Normal Inspection. No: Edema Neurological: Present: GCS=15, CN II-XII Intact, Speech Normal Skin: Present: Warm, Dry, Normal Color. No: Rashes Psychiatric: Present: Alert, Oriented x 3, Normal Insight, Normal Concentration Medical Decision Making ED Course and Treatment: 04/18/17 01:44 Impression: 47 year old male complaining of abdominal discomfort radiating to his back for the past few days, with vomiting. Plan: -- EKG -- Chest X-ray -- Labs, cardiac enzymes, alcohol level, lipase -- Urinalysis -- IV fluids -- Zofran -- Pepcid -- Reassess and disposition Prior Visits: Notes and results from previous visits were reviewed. On 01/22/2017, pt was seen in the Emergency department for s/p fall with left arm/leg pain. Pt was admitted to the hospital for further evaluation. Progress Notes: 04/18/17 03:33 CXR reviewed, shows no acute processes. 04/18/17 03:42 Reviewed EKG, NSR at 91 bpm. Septal infarct. No acute changes. 04/18/17 04:[address] Tahir Forbes, who is aware and agrees with plan. Accepts pt in to hospitalist service. Pt will go to [facility] observation for abdominal pain. 04/18/17 04:26 Case discussed with biomedical engineering aide paraprofessional education assistant, who is aware and agrees with plan. - Lab Interpretations Lab Results: 04/18/17 02:12 04/18/17 02:12 Lab Results 04/18/17 02:12: Alcohol, Quantitative < 10 04/18/17 02:12: WBC 7.9 D, RBC 3.42 L, Hgb 9.6 L, Hct 30.7 L, MCV 89.8, MCH 28.1, MCHC 31.3, RDW 15.5 H, Plt Count 355, MPV 9.6 04/18/17 02:12: Sodium 146, Potassium 3.6, Chloride 105, Carbon Dioxide 31, Anion Gap 14, BUN 10, Creatinine 0.7 L, Est GFR ( Amer) > 60, Est GFR ( Non-Af Amer) > 60, Random Glucose 255 H, Calcium 9.2, Total Bilirubin 0.5, AST 45, ALT 63 H, Alkaline Phosphatase 180 H D, Lactate Dehydrogenase 649, Total Creatine Kinase 55, Troponin I < 0.01, Total Protein 7.5, Albumin 3.6, Globulin 3.9, Albumin/Globulin Ratio 0.9 L, Lipase < 10 L 04/18/17 02:12: PT 11.2, INR 1.03, APTT 28.8 I have reviewed the lab results: Yes - RAD Interpretation Radiology Orders: 04/18/17 01:48 CHEST PORTABLE [RAD] Stat - Medication Orders Current Medication Orders: Discontinued Medications Famotidine (Pepcid) 20 mg IVP STAT STA Stop: 04/18/17 01:50 Last Admin: 04/18/17 02:19 Dose: 20 mg IVP Administration Document 04/18/17 02:19 AD (Rec: 04/18/17 02:19 AD [id number]) Charges for Administration # of IVP Administrations 1 Sodium Chloride (Sodium Chloride 0.9%) 1,000 mls @ 999 mls/hr IV .Q1H1M STA Stop: 04/18/17 02:49 Last Admin: 04/18/17 02:19 Dose: 999 mls/hr eMAR Start Stop Document 04/18/17 02:19 AD (Rec: 04/18/17 02:19 AD [id number]) Intravenous Solution Start Date 04/18/17 Start Time 02:19 Ketorolac Tromethamine (Toradol) 30 mg IVP ONCE ONE Stop: 04/18/17 04:19 Ondansetron HCl (Zofran Inj) 4 mg IVP ONCE ONE Stop: 04/18/17 01:50 Last Admin: 04/18/17 02:19 Dose: 4 mg IVP Administration Document 04/18/17 02:19 AD (Rec: 04/18/17 02:19 AD [id number]) Charges for Administration # of IVP Administrations 1 - Scribe Statement The provider has reviewed the documentation as recorded by the Ritaibjuan Lakhani Provider Scribe Attestation: All medical record entries made by the Scribe were at my direction and personally dictated by me. I have reviewed the chart and agree that the record accurately reflects my personal performance of the history, physical exam, medical decision making, and the department course for this patient. I have also personally directed, reviewed, and agree with the discharge instructions and disposition./ Disposition/Present on Arrival - Present on Arrival Any Indicators Present on Arrival: No History of DVT/PE: No History of Uncontrolled Diabetes: No Urinary Catheter: No History of Decub. Ulcer: No History Surgical Site Infection Following: None - Disposition Have Diagnosis and Disposition been Completed?: Yes Diagnosis: Intractable abdominal pain, Intractable nausea and vomiting Disposition: HOSPITALIZED Disposition Time: 04:32 Patient Plan: Observation Condition: STABLE Forms: [employer] (Slovak)
[2017-04-18] MEDS ORDERED: Sodium Chloride 0.9% 1,000 ML IV STA (01:49)
[2017-04-18 02:38] LABS: HEMATOCRIT 30.7 % (42.0-52.0); MEAN CELL VOLUME 89.8 fl (80.0-105.0); MEAN CORPUSCULAR HEMOGLOBIN 28.1 pg (25.0-35.0); MEAN CORPUSCULAR HGB CONC 31.3 g/dl (31.0-37.0); MEAN PLATELET VOLUME 9.6 fl (7.0-11.0); RED CELL DISTRIBUTION WIDTH 15.5 % (11.5-14.5); WHITE BLOOD COUNT 7.9 10^3/ul (4.5-11.0)
[2017-04-18 02:40] LABS: ALB/GLOB RATIO 0.9 (1.1-1.8); ALT/SGPT 63 U/L (7-56); BILIRUBIN,TOTAL 0.5 mg/dL (0.2-1.3); BLOOD UREA NITROGEN 10 mg/dL (7-21); CARBON DIOXIDE 31 mmol/L (21-33); GFR AFRICAN-AMERICAN > 60; GLUCOSE,RANDOM 255 mg/dL (70-110); LIPASE < 10 U/L (23-300); POTASSIUM 3.6 mmol/L (3.6-5.0); SODIUM 146 mmol/L (132-148); TOTAL PROTEIN 7.5 g/dL (5.8-8.3)
[2017-04-18 02:43] LABS: AST/SGOT 45 U/L (17-59); CALCIUM 9.2 mg/dL (8.4-10.5); CHLORIDE 105 mmol/L (98-107)
[2017-04-18 02:44] LABS: ALKALINE PHOSPHATASE 180 U/L (38-126)
[2017-04-18 02:45] LABS: INR 1.03 (0.93-1.08)
[2017-04-18 02:46] LABS: PARTIAL THROMBOPLASTIN TIME 28.8 Seconds (25.1-36.5)
[2017-04-18 03:38] LABS: TROPONIN I < 0.01 ng/mL
[2017-04-18] MEDS ORDERED: Alum-Mag Hydrox-Simethicone Susp (30 mL) PO PRN (05:39)
[2017-04-18] MEDS ORDERED: Alum-Mag Hydrox-Simethicone Susp (30 mL) PO STA (05:39)
[2017-04-18] MEDS: Sodium Chloride 0.9% 1,000 ML IV SCH ×2 (06:25→16:19)
[2017-04-18] MEDS: Pantoprazole 40 mg EC Tab PO SCH ×4 (06:36→16:27)
[2017-04-18 06:42] LABS: URINE BILIRUBIN NEGATIVE (NEGATIVE); URINE BLOOD NEGATIVE (NEGATIVE); URINE GLUCOSE (UA) >=1000 mg/dL (NEGATIVE); URINE KETONE TRACE mg/dL (NEGATIVE); URINE LEUKOCYTE ESTERASE NEGATIVE Leu/uL (NEGATIVE); URINE PROTEIN 30 mg/dL (<30 mg/dL); URINE UROBILINOGEN 0.2 E.U./dL (<1 E.U./dL)
[2017-04-18 06:45] LABS: URINE APPEARANCE CLEAR (CLEAR); URINE COLOR YELLOW (YELLOW)
[2017-04-18 07:00] LABS: URINE EPITHELIAL CELLS 0 - 2 /hpf (0-5); URINE RBC 0 - 2 /hpf (0-2); URINE WBC 0 - 2 /hpf (0-6)
--- NOTE | 2017-04-18 07:14 | CP.PCM.HP ---
History of Present Illness - History of Present Illness History of Present Illness: Min Zambrano PGY1 - Internal Medicine H&P CC: Abdominal pain HPI: 46 yo M with a PMHx of DM2, DVT, COPD, duodenal ulcer, HTN, Hypercholesterolemia and chronic pancreatitis, presents to the ER complaining of epigastric abdominal pain radiating to the back. Pain started yesterday, intermittently both improved and worsened with meals and with emesis. Pain is stabbing in nature, ranging from 2-8/10 in severity. He admits to nausea and vomiting, and has not been eating much for fear of vomiting. He denies hematemesis or hemoptysis. He denies fever, chills, diarrhea, constipation, melena, hematochezia, chest pain, shortness of breath. He reports a history of PUD and uncontrolled diabetes, but has not been taking any medications because he cannot afford them. He also is complaining of weakness in both legs, which started two days ago, but he has had before. He reports a recent fall in which he hit his right hip and right brow. He is complaining of right hip pain. He denies headache, confusion, LOC, focal numbness, parasthesias, vision changes, dizziness. Remainder of 12 point ROS was negative. Of note, patient frequently visits multiple ER's and often clearly states that he is homeless and would like to sleep in the hospital. Prior to making the claim about the fall, he said he is unwilling to be discharged because he is homeless. In prior admissions, patient has thrown himself on the ground in efforts to hurt himself to avoid discharge. He has also made the same claim, in prior presentations, of falling and hitting the right side of his face. PMD: none PMHx: Anemia, Asthma, COPD, Diabetes, Deep Vein Thrombosis of right leg, Duodenal Ulcer, HTN, Hypercholesterolemia, Pancreatitis (chronic) PSHx: IVC filter right leg 2016; EGD 2014; EGD 2012; hernia repair 2006 Home Medications: unknown insulin regimen; multiple medications previously prescribed, but does not take any of them Allergies: IV contrast - pruritus SocialHx: currently smokes tobacco 1/2 ppd for 20 years; currently does not drink alcohol, drank 1 pint of vodka every day for 20 years; marijuana use in his 20s; denies history of heroin or IV drug abuse (however upon chart review patient was seen by psychiatry in 2016 for heroin abuse); currently homeless, panhandles to get by; 5 children FamHx: denies Present on Admission - Present on Admission Any Indicators Present on Admission: Yes History of DVT/PE: Yes History of Uncontrolled Diabetes: Yes Urinary Catheter: No Decubitus Ulcer Present: No Past Patient History - Infectious Disease Hx of Infectious Diseases: None - Tetanus Immunizations Tetanus Immunization: Up to Date - Past Medical History & Family History Past Medical History?: Yes - Past Social History Smoking Status: Former Smoker - CARDIAC Hx Hypertension: Yes - PULMONARY Hx Chronic Obstructive Pulmonary Disease (COPD): Yes - NEUROLOGICAL Hx Neurological Disorder: Yes (neuropathy, numbness to toes) - HEENT Hx HEENT Problems: No - RENAL Hx Chronic Kidney Disease: No - ENDOCRINE/METABOLIC Hx Diabetes Mellitus Type 2: Yes - HEMATOLOGICAL/ONCOLOGICAL Hx Anemia: Yes - INTEGUMENTARY Hx Dermatological Problems: Yes - MUSCULOSKELETAL/RHEUMATOLOGICAL Hx Falls: Yes - GASTROINTESTINAL Hx Pancreatitis: Yes (chronic) - GENITOURINARY/GYNECOLOGICAL Hx Genitourinary Disorders: No - PSYCHIATRIC Hx Depression: No Hx Substance Use: Yes - SURGICAL HISTORY Other/Comment: UMBILICAL hernia 9 yrs old - ANESTHESIA Hx Anesthesia: Yes Hx Anesthesia Reactions: No Hx Malignant Hyperthermia: No Meds Allergies/Adverse Reactions: Allergies Allergy/AdvReac Type Severity Reaction Status Date / Time contrast dye Allergy Mild URTICARIA Uncoded 01/22/17 16:34 Physical Exam - Constitutional Appears: Non-toxic, No Acute Distress, Unkempt, Chronically Ill - Head Exam Head Exam: ATRAUMATIC, NORMOCEPHALIC Additional comments: Old healed scar, over right zygoma. No echymosis, edema, abrasion, recent laceration, or other signs of trauma anywhere on patient's face or head. No tenderness - Eye Exam Eye Exam: EOMI, Normal appearance, PERRL. absent: Periorbital swelling, Periorbital tenderness - ENT Exam ENT Exam: Mucous Membranes Moist - Neck Exam Neck exam: Positive for: Normal Inspection - Respiratory Exam Respiratory Exam: Clear to Auscultation Bilateral, NORMAL BREATHING PATTERN - Cardiovascular Exam Cardiovascular Exam: RRR, +S1, +S2 - GI/Abdominal Exam GI & Abdominal Exam: Distended, Normal Bowel Sounds, Soft, Tenderness (mild, epigastric). absent: Firm, Guarding, Rebound, Rigid - Extremities Exam Extremities exam: Positive for: pedal edema. Negative for: calf tenderness Additional comments: 2-3+ pitting edema in bilateral lower extremities. Dry, dirty skin. Chronic venous stasis changes. - Neurological Exam Neurological exam: Alert, CN II-XII Intact, Oriented x3 - Psychiatric Exam Psychiatric exam: Normal Affect, Normal Mood - Skin Skin Exam: Dry, Intact, Normal Color Results - Vital Signs Recent Vital Signs: Last Vital Signs Temp 98.9 F 04/18/17 01:37 Pulse 72 04/18/17 06:45 Resp 18 04/18/17 06:45 BP 108/82 04/18/17 06:45 Pulse Ox 100 04/18/17 06:45 - Labs Result Diagrams: 04/18/17 02:12 04/18/17 02:12 Labs: Laboratory Results - last 24 hr 04/18/17 04/18/17 06:20 06:20 Urine Color Yellow Urine Appearance Clear Urine pH 6.0 Ur Specific Sunol >= 1.030 Urine Protein 30 H Urine Glucose (UA) >=1000 Urine Ketones Trace H Urine Blood Negative Urine Nitrate Negative Urine Bilirubin Negative Urine Urobilinogen 0.2 Ur Leukocyte Esterase Negative Urine RBC 0 - 2 Urine WBC 0 - 2 Ur Epithelial Cells 0 - 2 Urine Methadone Screen Negative Ur Barbiturates Screen Negative Ur Phencyclidine Scrn Negative Ur Amphetamines Screen Negative U Benzodiazepines Scrn Negative U Cannabinoids Screen Negative Assessment & Plan - Assessment and Plan (Free Text) Assessment: 46 yo M with a PMHx of DM2, DVT, COPD, duodenal ulcer, HTN, Hypercholesterolemia and chronic pancreatitis, presents to the ER complaining of epigastric abdominal pain radiating to the back. Also complaining of bilateral leg weakness and fall. No signs of recent trauma on exam, nonfocal neuro exam. Plan Abdominal pain - Patient has history of PUD and chronic pancreatitis, current presentation most likely 2/2 PUD and medication noncompliance - Lipase low - Start Protonix 40mg PO BID - Start Maalox Q8 PRN - If no improvement in symptoms on antiacid, consider imaging studies to r/o other intraabdominal pathologies - Patient was previously seen by GI, who suggested starting enzyme supplementation, though patient remains noncompliant with medications or follow up - Avoid NSAIDs for pain in pt with h/o PUD; Avoid narcotics in pt with h/o drug abuse h/o Fall - Patient is complaining of a fall, though no objective findings of the described fall noted on exam - Neuro exam nonfocal - Ordered neurochecks; consider imaging study if any changes noted - Ordered UA Malnutrition and h/o substance abuse - Patient denies recent alcohol consumption; denies recent illicit substance use - Alcohol level low - Start thiamine supplement - Ordered CIWA protocol - Ordered UDS Diabetes - Patient is hyperglycemic, noncompliant with medications - Start ISS med - Accucheck ACHS h/o COPD - Start previously prescribed regimen; Brovana and Pulmicort GI/DVT Ppx - Protonix, SCDs Patient seen, discussed, and reviewed with attending
[2017-04-18] MEDS ORDERED: Budesonide 0.5 mg/2 ml Inhal Susp UD IH SCH (08:00)
--- NOTE | 2017-04-18 08:33 | RAD ---
HISTORY: abdominal pain COMPARISON: 10/07/2016 FINDINGS: LUNGS: No pulmonary infiltrate. Small stable nodular opacity lower right lung of overlying lateral posterior right 8th rib, possibly representing nipple shadow and unchanged compared to multiple prior chest radiographs. This can be seen dating back to at least 2014. PLEURA: No significant pleural effusion identified, no pneumothorax apparent. CARDIOVASCULAR: Normal. OSSEOUS STRUCTURES: No significant abnormalities. VISUALIZED UPPER ABDOMEN: Normal. OTHER FINDINGS: None. IMPRESSION: No active disease.
--- NOTE | 2017-04-18 12:02 | CARD ---
APPROVED REPORT EKG Measurement Heart [id number] ID [id number] <Conclusion> Normal sinus rhythm Septal infarct, old No change
[2017-04-18] MEDS: Insulin Reg-MEDIUM-Coverage SC SCH ×4 (12:55→22:05)
[2017-04-18] MEDS: Arformoterol 15 mcg/2 ml Inh Sol IH SCH ×3 (13:32→20:35)
--- NOTE | 2017-04-18 15:08 | CT ---
PROCEDURE: CT HEAD WITHOUT CONTRAST. HISTORY: fall COMPARISON: Comparison is made with previous study dated 06/24/2016 TECHNIQUE: Axial computed tomography images were obtained through the head/brain without intravenous contrast. Radiation dose: Total exam DLP = 780.46 mGy-cm. This CT exam was performed using one or more of the following dose reduction techniques: Automated exposure control, adjustment of the mA and/or kV according to patient size, and/or use of iterative reconstruction technique. FINDINGS: HEMORRHAGE: No intracranial hemorrhage. BRAIN: No mass effect or edema. No atrophy or chronic microvascular ischemic changes. VENTRICLES: Unremarkable. No hydrocephalus. CALVARIUM: Unremarkable. PARANASAL SINUSES: Unremarkable as visualized. No significant inflammatory changes. MASTOID AIR CELLS: Unremarkable as visualized. No inflammatory changes. OTHER FINDINGS: None. IMPRESSION: No evidence of acute intracranial hemorrhage. No evidence of significant interval change since the previous exam.
[2017-04-18] MEDS: Amylase/Lipase/Protease 5,000 Units ECC PO SCH ×2 (16:18→16:27)
--- NOTE | 2017-04-18 23:47 | CON ---
DATE: 04/18/2017 REQUESTING PHYSICIAN: Dr. Glez. REASON FOR CONSULTATION: I have been asked to see this 47-year-old male with chronic abdominal pain secondary to chronic pancreatitis, history of polysubstance abuse, history of alcohol abuse in the past, history of brittle diabetes mellitus, who comes to the hospital with several days of diffuse abdominal pain, nausea, vomiting. The patient is homeless. The patient has frequent [facility] admissions for abdominal pain, chronic pancreatitis and uncontrolled diabetes mellitus. He is noncompliant with his medications he takes pain medications as an outpatient. He denied illicit drug use, but his urine toxicology is positive for cocaine. PAST MEDICAL HISTORY: Notable for chronic pancreatitis, COPD, hypertension, asthma, chronic anemia, diabetes mellitus, duodenal ulcer, hyperlipidemia, DVT status post IVC filter. SOCIAL HISTORY: The patient has a history of alcoholism. He states he has not had alcohol in several years. He is on chronic opiates at home. He smokes up to half pack of cigarettes per day. FAMILY HISTORY: Noncontributory. REVIEW OF SYSTEMS: A 14-point review of systems is notable for abdominal pain, nausea, vomiting. PHYSICAL EXAMINATION: GENERAL: Chronically ill-appearing male sitting in bed in no acute distress. VITAL SIGNS: Reveal temperature of 98.2, blood pressure 130/79, heart rate 79. HEENT: Reveal sclerae to be white. Conjunctivae pale. NECK: Supple. CHEST: Reveal lungs to be clear. HEART: Reveals a regular rate and rhythm. ABDOMEN: Soft, mild diffuse tenderness. EXTREMITIES: Show 2+ edema of the lower extremities with chronic venous stasis changes. LABORATORY DATA: Reveal white blood cell count 7.9, hemoglobin 9.6. Chemistries reveal AST 45, ALT 63, alk phos 180. Urine tox screen is positive for opiates and cocaine. IMPRESSION: 1. A 47-year-old male with chronic abdominal pain from alcohol induced chronic pancreatitis. His last CT scan of the abdomen was about 8 months ago, which showed atrophy of the pancreas with coarse calcifications in the pancreas with dilated pancreatic duct his liver enzymes show mildly elevated ALT at 63 and mildly elevated alkaline phosphatase of 180. His lipase is normal. 2. Brittle diabetes mellitus with noncompliance to medications. RECOMMENDATIONS: 1. Advance diet as tolerated. 2. I will start the patient on pancreatic enzyme replacement. 3. Continue Toradol as needed for abdominal pain. Raciel Hollins MD [facility] # [id number]
[2017-04-19] MEDS: Pantoprazole 40 mg EC Tab PO SCH (06:12)
[2017-04-19] MEDS: Insulin Reg-MEDIUM-Coverage SC SCH (08:16)
[2017-04-19] MEDS: Arformoterol 15 mcg/2 ml Inh Sol IH SCH (08:42)
[2017-04-19] MEDS: Amylase/Lipase/Protease 5,000 Units ECC PO SCH (09:04)
[2017-04-19 09:39] VITALS: BP 107/73; PULSE 87; RESP 20; TEMP 99.1; O2SAT 97
--- NOTE | 2017-04-19 23:57 | CP.PCM.DIS ---
<Karen Esparza - Last Filed: 04/19/17 23:54> Provider - Provider Date of Admission: 04/18/17 04:32 Attending physician: Tripp Rivera MD Consults: GI (Dr Hollins) Time Spent in preparation of Discharge (in minutes): 0 Diagnosis - Discharge Diagnosis (1) Abdominal pain Status: Chronic (2) Chronic alcoholic pancreatitis Status: Acute Hospital Course - Lab Results Lab Results: Most Recent Lab Values WBC 7.9 10^3/ul (4.5-11.0) D 04/18/17 02:12 RBC 3.42 10^6/uL (3.5-6.1) L 04/18/17 02:12 Hgb 9.6 g/dL (14.0-18.0) L 04/18/17 02:12 Hct 30.7 % (42.0-52.0) L 04/18/17 02:12 MCV 89.8 fl (80.0-105.0) 04/18/17 02:12 MCH 28.1 pg (25.0-35.0) 04/18/17 02:12 MCHC 31.3 g/dl (31.0-37.0) 04/18/17 02:12 RDW 15.5 % (11.5-14.5) H 04/18/17 02:12 Plt Count 355 10^3/uL (120.0-450.0) 04/18/17 02:12 MPV 9.6 fl (7.0-11.0) 04/18/17 02:12 PT 11.2 SECONDS (9.4-12.5) 04/18/17 02:12 INR 1.03 (0.93-1.08) 04/18/17 02:12 APTT 28.8 Seconds (25.1-36.5) 04/18/17 02:12 Sodium 146 mmol/L (132-148) 04/18/17 02:12 Potassium 3.6 mmol/L (3.6-5.0) 04/18/17 02:12 Chloride 105 mmol/L (98-107) 04/18/17 02:12 Carbon Dioxide 31 mmol/L (21-33) 04/18/17 02:12 Anion Gap 14 (10-20) 04/18/17 02:12 BUN 10 mg/dL (7-21) 04/18/17 02:12 Creatinine 0.7 mg/dl (0.8-1.5) L 04/18/17 02:12 Est GFR ( Amer) > 60 04/18/17 02:12 Est GFR (Non-Af Amer) > 60 04/18/17 02:12 POC Glucose (mg/dL) 226 mg/dL (65-110) H 04/19/17 07:11 Random Glucose 255 mg/dL (70-110) H 04/18/17 02:12 Calcium 9.2 mg/dL (8.4-10.5) 04/18/17 02:12 Total Bilirubin 0.5 mg/dL (0.2-1.3) 04/18/17 02:12 AST 45 U/L (17-59) 04/18/17 02:12 ALT 63 U/L (7-56) H 04/18/17 02:12 Alkaline Phosphatase 180 U/L (38-126) H D 04/18/17 02:12 Lactate Dehydrogenase 649 U/L (333-699) 04/18/17 02:12 Total Creatine Kinase 55 U/L (35-230) 04/18/17 02:12 Troponin I < 0.01 ng/mL 04/18/17 02:12 Total Protein 7.5 g/dL (5.8-8.3) 04/18/17 02:12 Albumin 3.6 g/dL (3.0-4.8) 04/18/17 02:12 Globulin 3.9 gm/dL 04/18/17 02:12 Albumin/Globulin Ratio 0.9 (1.1-1.8) L 04/18/17 02:12 Lipase < 10 U/L (23-300) L 04/18/17 02:12 Urine Color Yellow (YELLOW) 04/18/17 06:20 Urine Appearance Clear (CLEAR) 04/18/17 06:20 Urine pH 6.0 (4.7-8.0) 04/18/17 06:20 Ur Specific [place] >= 1.030 (1.005-1.035) 04/18/17 06:20 Urine Protein 30 mg/dL (<30 mg/dL) H 04/18/17 06:20 Urine Glucose (UA) >=1000 mg/dL (NEGATIVE) 04/18/17 06:20 Urine Ketones Trace mg/dL (NEGATIVE) H 04/18/17 06:20 Urine Blood Negative (NEGATIVE) 04/18/17 06:20 Urine Nitrate Negative (NEGATIVE) 04/18/17 06:20 Urine Bilirubin Negative (NEGATIVE) 04/18/17 06:20 Urine Urobilinogen 0.2 E.U./dL (<1 E.U./dL) 04/18/17 06:20 Ur Leukocyte Esterase Negative Rich/uL (NEGATIVE) 04/18/17 06:20 Urine RBC 0 - 2 /hpf (0-2) 04/18/17 06:20 Urine WBC 0 - 2 /hpf (0-6) 04/18/17 06:20 Ur Epithelial Cells 0 - 2 /hpf (0-5) 04/18/17 06:20 Urine Opiates Screen Positive (NEGATIVE) H 04/18/17 06:20 Urine Methadone Screen Negative (NEGATIVE) 04/18/17 06:20 Ur Barbiturates Screen Negative (NEGATIVE) 04/18/17 06:20 Ur Phencyclidine Scrn Negative (NEGATIVE) 04/18/17 06:20 Ur Amphetamines Screen Negative (NEGATIVE) 04/18/17 06:20 U Benzodiazepines Scrn Negative (NEGATIVE) 04/18/17 06:20 U Oth Cocaine Metabols Positive (NEGATIVE) H 04/18/17 06:20 U Cannabinoids Screen Negative (NEGATIVE) 04/18/17 06:20 Alcohol, Quantitative < 10 mg/dL (0-10) 04/18/17 02:12 - Hospital Course Hospital Course: 46 years old homeless male with a PMHx of DM2, DVT, COPD, duodenal ulcer, HTN, Hypercholesterolemia and chronic pancreatitis, presents to the ER complaining of epigastric abdominal pain radiating to the back. Pain started yesterday, intermittently both improved and worsened with meals. Pt also reported a mechanical fall [address] [employer], where he states that he fell on his face. Denied any bruising, headache, mental status changes, fever, chills, nausea, vomiting, urinary symptoms. Pt afebrile, no leukocytosis, hemodynamically stable, low lipase. Pt was started on Protonix, IVF. Toradol was given for pain control. GI (Dr Hollins) was consulted, and he recommended advancing diet as tolerated and adding Pancrease for improving his abdominal pain (which the patient refused). CT head obtained for negative for any fractures or bleed. He tolerated PO regular diet very well, and was seen ambulating multiple times in the hallway and to the bathroom (as per the nurses). PT eval and social work eval were ordered. However, patient walked out of the hospital before an official discharge was done. He refused to sign AMA paper, and listen to the risks and benefits of leaving against medical advice. - Date & Time of H&P Date of H&P: 04/18/17 Discharge Exam - Head Exam Head Exam: ATRAUMATIC, NORMOCEPHALIC - Eye Exam Eye Exam: EOMI, PERRL Pupil Exam: PERRL - ENT Exam ENT Exam: Mucous Membranes Moist - Respiratory Exam Respiratory Exam: Clear to PA & Lateral. absent: Respiratory Distress - Cardiovascular Exam Cardiovascular Exam: RRR, +S1, +S2. absent: Systolic Murmur - GI/Abdominal Exam GI & Abdominal Exam: Normal Bowel Sounds, Soft. absent: Distended, Guarding, Rebound, Rigid, Tenderness - Extremities Exam Extremities exam: pedal pulses present Additional comments: + Chronic venous stasis changes, bilaterally - Back Exam Back exam: NORMAL INSPECTION - Neurological Exam Neurological exam: Alert, Oriented x3 - Psychiatric Exam Psychiatric exam: Normal Affect - Skin Skin Exam: Dry, Normal Color, Warm Discharge Plan - Follow Up Plan Condition: STABLE Disposition: AGAINST MEDICAL ADVICE Patient education suggested?: Yes Instructions: Pancreatitis (DC) <Trpip Rivera - Last Filed: 04/20/17 06:49> Provider - Provider Date of Admission: 04/18/17 04:32 Attending physician: Tripp Rivera MD Time Spent in preparation of Discharge (in minutes): 20 Hospital Course - Lab Results Lab Results: Most Recent Lab Values WBC 7.9 10^3/ul (4.5-11.0) D 04/18/17 02:12 RBC 3.42 10^6/uL (3.5-6.1) L 04/18/17 02:12 Hgb 9.6 g/dL (14.0-18.0) L 04/18/17 02:12 Hct 30.7 % (42.0-52.0) L 04/18/17 02:12 MCV 89.8 fl (80.0-105.0) 04/18/17 02:12 MCH 28.1 pg (25.0-35.0) 04/18/17 02:12 MCHC 31.3 g/dl (31.0-37.0) 04/18/17 02:12 RDW 15.5 % (11.5-14.5) H 04/18/17 02:12 Plt Count 355 10^3/uL (120.0-450.0) 04/18/17 02:12 MPV 9.6 fl (7.0-11.0) 04/18/17 02:12 PT 11.2 SECONDS (9.4-12.5) 04/18/17 02:12 INR 1.03 (0.93-1.08) 04/18/17 02:12 APTT 28.8 Seconds (25.1-36.5) 04/18/17 02:12 Sodium 146 mmol/L (132-148) 04/18/17 02:12 Potassium 3.6 mmol/L (3.6-5.0) 04/18/17 02:12 Chloride 105 mmol/L (98-107) 04/18/17 02:12 Carbon Dioxide 31 mmol/L (21-33) 04/18/17 02:12 Anion Gap 14 (10-20) 04/18/17 02:12 BUN 10 mg/dL (7-21) 04/18/17 02:12 Creatinine 0.7 mg/dl (0.8-1.5) L 04/18/17 02:12 Est GFR ( Amer) > 60 04/18/17 02:12 Est GFR (Non-Af Amer) > 60 04/18/17 02:12 POC Glucose (mg/dL) 226 mg/dL (65-110) H 04/19/17 07:11 Random Glucose 255 mg/dL (70-110) H 04/18/17 02:12 Calcium 9.2 mg/dL (8.4-10.5) 04/18/17 02:12 Total Bilirubin 0.5 mg/dL (0.2-1.3) 04/18/17 02:12 AST 45 U/L (17-59) 04/18/17 02:12 ALT 63 U/L (7-56) H 04/18/17 02:12 Alkaline Phosphatase 180 U/L (38-126) H D 04/18/17 02:12 Lactate Dehydrogenase 649 U/L (333-699) 04/18/17 02:12 Total Creatine Kinase 55 U/L (35-230) 04/18/17 02:12 Troponin I < 0.01 ng/mL 04/18/17 02:12 Total Protein 7.5 g/dL (5.8-8.3) 04/18/17 02:12 Albumin 3.6 g/dL (3.0-4.8) 04/18/17 02:12 Globulin 3.9 gm/dL 04/18/17 02:12 Albumin/Globulin Ratio 0.9 (1.1-1.8) L 04/18/17 02:12 Lipase < 10 U/L (23-300) L 04/18/17 02:12 Urine Color Yellow (YELLOW) 04/18/17 06:20 Urine Appearance Clear (CLEAR) 04/18/17 06:20 Urine pH 6.0 (4.7-8.0) 04/18/17 06:20 Ur Specific [place] >= 1.030 (1.005-1.035) 04/18/17 06:20 Urine Protein 30 mg/dL (<30 mg/dL) H 04/18/17 06:20 Urine Glucose (UA) >=1000 mg/dL (NEGATIVE) 04/18/17 06:20 Urine Ketones Trace mg/dL (NEGATIVE) H 04/18/17 06:20 Urine Blood Negative (NEGATIVE) 04/18/17 06:20 Urine Nitrate Negative (NEGATIVE) 04/18/17 06:20 Urine Bilirubin Negative (NEGATIVE) 04/18/17 06:20 Urine Urobilinogen 0.2 E.U./dL (<1 E.U./dL) 04/18/17 06:20 Ur Leukocyte Esterase Negative Rich/uL (NEGATIVE) 04/18/17 06:20 Urine RBC 0 - 2 /hpf (0-2) 04/18/17 06:20 Urine WBC 0 - 2 /hpf (0-6) 04/18/17 06:20 Ur Epithelial Cells 0 - 2 /hpf (0-5) 04/18/17 06:20 Urine Opiates Screen Positive (NEGATIVE) H 04/18/17 06:20 Urine Methadone Screen Negative (NEGATIVE) 04/18/17 06:20 Ur Barbiturates Screen Negative (NEGATIVE) 04/18/17 06:20 Ur Phencyclidine Scrn Negative (NEGATIVE) 04/18/17 06:20 Ur Amphetamines Screen Negative (NEGATIVE) 04/18/17 06:20 U Benzodiazepines Scrn Negative (NEGATIVE) 04/18/17 06:20 U Oth Cocaine Metabols Positive (NEGATIVE) H 04/18/17 06:20 U Cannabinoids Screen Negative (NEGATIVE) 04/18/17 06:20 Alcohol, Quantitative < 10 mg/dL (0-10) 04/18/17 02:12 Attending/Attestation - Attestation I have personally seen and examined this patient.: Yes I have fully participated in the care of the patient.: Yes I have reviewed all pertinent clinical information, including history, physical exam and plan: Yes Notes (Text): 04/20/17 06:46 46 year old homeless male with past medical history of chronic pancreatitis, diabetes, ETOH and substance abuse who presented with complaint of chronic abdominal pain and complaint of mechanical falls two days prior to admission. CT head was negative for acute findings. He was admitted to the medical floor. He was tolerating diet without complaint of vomiting. He was seen by GI. PT evaluation was requested and pending however as per nursing staff he was ambulating without complaints. He signed out against medical advice shortly after rounds. Tripp Rivera MD Hospitalist.
== END 2017-04-19 11:47 | disposition left against medical advice (07) ==
LOC: ED 01:21 → ERH 04:32 → 3RNO 08:18
PROVIDERS: ADMIT Internal Medicine; ATTEND Internal Medicine
DX: K86.0 Alcohol-induced chronic pancreatitis (principal); E11.65 Type 2 diabetes mellitus with hyperglycemia; E78.00 Pure hypercholesterolemia, unspecified; E78.5 Hyperlipidemia, unspecified; F17.210 Nicotine dependence, cigarettes, uncomplicated; G89.29 Other chronic pain; I10 Essential (primary) hypertension; J44.9 Chronic obstructive pulmonary disease, unspecified; W18.30XA Fall on same level, unspecified, initial encounter; Z59.0 Homelessness; Z79.891 Long term (current) use of opiate analgesic; Z86.718 Personal history of other venous thrombosis and embolism; Z87.11 Personal history of peptic ulcer disease; Z91.14 Patient's other noncompliance with medication regimen; E11.40 Type 2 diabetes mellitus with diabetic neuropathy, unspecified; D64.9 Anemia, unspecified; K42.9 Umbilical hernia without obstruction or gangrene; Z91.041 Radiographic dye allergy status; I87.8 Other specified disorders of veins; K27.9 Peptic ulcer, site unspecified, unspecified as acute or chronic, without hemorrhage or perforation; F10.21 Alcohol dependence, in remission
CPT/HCPCS: 70450; 71010; 80053; 81001; 82550; 82948; 83615; 83690; 84484; 85027; 85610; 85730; 93005; 96374; 96375; 99285; G0378; G0480; J1885; J2405; J7040